=== PATIENT | female | born 1960 | race Caucasian/White ===

== ENCOUNTER 2018-03-08 21:26 | Inpatient (IN) | payer OTHER, SELFPAY ==
[2018-03-08] MEDS ORDERED: Docusate 100 MG CAP PO PRN (22:17)
[2018-03-08] MEDS ORDERED: Labetalol HCl 100 MG/20 ML VIAL SLOW IVP PRN (22:17)
[2018-03-08] MEDS ORDERED: Ondansetron HCl/PF 4 MG/2 ML Vial IVP PRN (22:17)
[2018-03-08 22:37] LABS: Bilirubin Negative (Negative); Blood, Urine Large (Negative); Clarity CLOUDY (Clear); Glucose, Urine (Dipstick) 250 mg/dL (Negative); Leukocyte Negative (Negative); Nitrite Negative (Negative); Protein, Urine (Dipstick) 30 mg/dL (Neg-Trace); Specific Gravity, Urine 1.029 (1.002-1.036); pH, Urine 6.5 (5.0-9.0)
[2018-03-08 22:39] LABS: Bacteria/HPF None Seen HPF (None Seen); WBC/HPF 0-3 HPF (0-3)
[2018-03-08 22:40] LABS: Pathc Cast-AUWi Flag 3.48 (0-2.49)
[2018-03-08 22:49] LABS: Anion Gap 10 mmol/L (10-20); BUN (Urea Nitrogen) 11 mg/dL (9.8-20.1); Calc. Creatinine Clearance 119 mL/min (70-130); Calcium 8.9 mg/dL (7.8-10.44); Carbon Dioxide 25 mmol/L (22-29); Chloride 103 mmol/L (98-107); Estimated GFR-MDRD Greater than 90; Glucose 203 mg/dL (70-105); Sodium 134 mmol/L (136-145)
[2018-03-08 22:49] LABS: Hyaline Casts/LPF 0-3 HYALINE CAST LPF (0-3 Hyaline); RBC/HPF 21-50 HPF (0-3); Yeast-All Forms None Seen HPF (None Seen)
[2018-03-08 22:53] LABS: Platelet Count 29 thou/uL (130-400)
[2018-03-08 23:22] LABS: #Lymphocytes 1.6 thou/uL (1.20-3.40); #Monocytes 0.2 thou/uL (0.11-0.59); #Neutrophils 2.5 thou/uL (1.40-6.50); %Basophils 0.4 % (0.0-1.0); %Eosinophils 0.8 % (0.0-10.0); %Monocytes 5.1 % (0.0-10.0); %Neutrophils 56.8 % (42.0-75.0); Hemoglobin 14.6 g/dL (12.0-16.0); MDiff Complete? YES; Macrocytosis SLIGHT = 6-15 cells (100X) (0-5/hpf); Mean Corpuscular HGB CONC 34.3 g/dL (32.0-36.0); Mean Corpuscular Hemoglobin 36.5 pg (27.0-31.0); Mean Platelet Volume 12.1 fL (7.4-10.4); PLT Morphology Comment Appears Decreased; White Blood Cell (WBC) Count 4.3 thou/uL (4.8-10.8)
[2018-03-09] MEDS: Sodium Chloride 0.9% 1,000 ML IV SCH ×2 (00:25→15:13)
[2018-03-09] MEDS ORDERED: niCARdipine HCl 25 MG in Sodium Chloride 0.9% 250 ML 240 ML IVPB PRN (00:30)
[2018-03-09] MEDS ORDERED: niCARdipine HCl 25 MG in Sodium Chloride 0.9% 250 ML 240 ML IVPB SCH (00:30)
[2018-03-09 01:42] LABS: Platelet Count 40 thou/uL (130-400)
[2018-03-09] MEDS ORDERED: Acetaminophen 1,000 MG in Premix Bag 1 BAG IVPB SCH (03:45)
[2018-03-09] MEDS ORDERED: Morphine 4 MG/ML VIAL SLOW IVP PRN ×2 (04:02)
[2018-03-09] MEDS: Morphine 4 MG/ML VIAL ONE (04:02)
--- NOTE | 2018-03-09 06:06 | HP ---
HISTORY OF PRESENT ILLNESS: Ms. Arrieta is a 57-year-old female who presented as a transfer from [facility]. She last felt normal approximately 12 hours ago in which she developed a severe headache and started to feel nauseous. She is brought to [facility] and a CT scan of the brain showed a large parietooccipital intraparenchymal hemorrhage with extension into the right ventricle. The patient has a history of positive for cocaine use on 03/08/2018. She currently uses tobacco, smokes cigarettes daily. She smoked for the past 30 years, half pack a day. She drinks socially every week. She presented with left upper extremity weakness 2/5 and lower extremity weakness 3/ 5 and also some symptoms of left-sided neglect. Neurosurgery was consulted for the right intraparenchymal hemorrhage with extension into the ventricle. ALLERGIES: No known drug allergies. MEDICATIONS: None. PAST MEDICAL HISTORY: No past medical history. FEMALE SURGICAL HISTORY: Tubal ligation in 1986, right leg knee surgery, and left hand tendon surgery. SOCIAL HISTORY: The patient drinks socially every week. She is positive for cocaine on 03/08/2018. Currently uses tobacco, smokes cigarettes daily for the past 30 years, half pack a day. REVIEW OF SYSTEMS: The patient reports headache. She reports nausea. A 10- point review of systems completed is otherwise negative unless stated in the above HPI. PHYSICAL EXAMINATION: VITAL SIGNS: On presentation; blood pressure is 184/87, pulse 66, respirations 20, temperature 98.1, and O2 sat is 95% on room air. The patient currently on a nitroprusside drip to keep her systolic blood pressure between 140-150 mmHg. CONSTITUTIONAL: The patient is alert and oriented x2, slightly confused. She is hypertensive. No apparent distress. HEENT: Normocephalic, atraumatic. Hearing intact. Moist mucous membranes. Trachea is midline. Eyes: Pupils are equal and reactive to light. Extraocular muscles are intact. Sclerae is white and nonicteric. CARDIOVASCULAR: The patient has regular rate and rhythm, normal S1, S2 heart sounds. No distal cyanosis or clubbing noted in the upper or lower extremity. Pulses are +2 in the upper extremity and lower extremity bilaterally. RESPIRATORY: The patient has bilateral symmetric chest rise, appears to have no shortness of breath. EXTREMITIES: Upper extremity exam include findings of normal inspection of the skin. She has 2/5 weakness in the left upper extremity and 3/5 weakness in the left lower extremity. She also has some left-sided neglect. NEUROLOGIC: There is focal muscle weakness on the left upper and lower extremity. Focal sensory changes, numbness, and tingling to the left upper and lower extremities. Cranial nerves II-XII are grossly intact. Her speech is fluent. She is slightly lethargic, somewhat confused, A&O x2. GCS of 14. PSYCHIATRIC: The patient reports drug abuse, reports recent cocaine abuse. ASSESSMENT: This is a 57-year-old female who presents with a right-sided intraparenchymal occipitoparietal hemorrhage status post cocaine use. This right-sided hemorrhage has extension into the right ventricle. PLAN: We will admit her to ICU tonight. We will do neuro checks q.1 hours. Get a repeat CT scan of the brain at 0400 hours on 03/09/2018. If there is a GCS drop of 2 points or more, please call the Neurosurgery Service. We will also get some baseline labs and we are currently giving the patient platelets as her platelet count was 35,000. Please place the EVD with cranial access kit at the bedside. If there are any further questions, please feel free to contact Neurosurgery. [facility]ITAL[facility]
[2018-03-09 06:14] LABS: Platelet Count 60 thou/uL (130-400)
--- NOTE | 2018-03-09 07:23 | PRG ---
DATE OF SERVICE: 03/09/2018 Ms. Arrieta is a 57-year-old female I saw in her room in the ICU this morning. She presented yesterday with a large right-sided occipital parietal intraparenchymal hemorrhage with extension into the right ventricle. Her platelet count on arrival was 29,000. Two units were given which raised her platelet count to 60,000. Her sodium this morning is 134, glucose is 203. On exam this morning she is alert and oriented x3. She is able to answer my questions, cooperate with my exam. She has been very anxious overnight and she has been at times unwilling to cooperate. She had a positive tox screen with cocaine. Today we will consider adding ASE protocol for alcohol withdrawal and drug withdrawal as she drinks ETOH daily per family this am. She is showing some signs of tremor, possibly from ETOH withdraw. Her vital signs overnight have been well controlled with a Cardene. Her last blood pressure was 142/67. On exam, she has significant weakness and paresthesias in the left upper extremity, the left lower extremity has 3/5 strength. She has some left-sided neglect. On the right upper and lower extremities she has normal strength and no paresthesias. There are no sensory deficits. She is currently a GCS 14, slightly confused. Her cranial nerves are intact. Her speech is fluent and she answers my questions appropriately. There are no new neurologic deficits from my exam last night in the emergency department. We will continue to watch her in the ICU. She will likely need placement in a rehab status post her hospital stay. If there are any further questions, please feel free to contact Neurosurgery. In the meantime, she can work with physical therapy and occupational therapy for her upper and lower left-sided weakness. GAVIN
--- NOTE | 2018-03-09 08:41 | PRG ---
DATE OF SERVICE: 03/09/2018 NEUROSURGERY NOTE I personally interviewed and examined the patient and agree with documentation of alma Toth PA-C 03/08/2018. SUBJECTIVE: Briefly, Ms. Debra Arrieta is a 57-year-old woman transferred from [facility] where she was taken for headache and nausea. Reports that accompanied her indicated cocain e use earlier in the day, yesterday. CT examination of her brain at the outside facility showed a la rge parietal occipital intracerebral hemorrhage within the white matter extending towards the cortica l surface. Testing revealed a thrombocytopenia that was significant. She was transferred here for [facility]. On arrival, Ms. Arrieta had a GCS of 14 and complaint of headache and feeling ill. Overnight, she cont inues to do the exact same. When I see her this morning in the Intensive Care Unit, Ms. Arrieta is fran usable. She opens her eyes to loud voice. She repeats the phrase I feel terrible. She says yes and no to questions. She follows commands on the right side. She neglects her left side. I think the strength is there on the left, but she simply neglects that it exists. She does withdraw to pain on the left. I reviewed CT imaging of the brain and compared it to the images from the outside facility. There is slight increase in the size of the intracerebral hemorrhage, majority of it is stable. Some small a reas of hemorrhage has become more dense and finger-like projections anteriorly and laterally. Platelet count this morning on Ms. Arrieta is 60, her admission platelet count was 29,000. MsSuma W ara is to treat her medically, I think with her low platelet count, surgical intervention will resul t in the scan in the scan looking exactly the same after surgery as it does currently. It will be di fficult to obtain hemostasis and I think we would have to run 1-2 units of platelets during the entir e length of surgery and afterwards and continue that for at least a day or two following. Because taran antonio is awake and opens her eyes in response and speaks, she may be able to make it through this event w ithout surgical intervention. Right now, I am hesitant to put an ICP monitor in either given that taran antonio has an exam, we can follow and she has low platelets. I anticipate the need for mannitol in the fu ture, but I would not use it until it becomes necessary by the senior clinical consultant team over the weekend. I will keep a close eye on Ms. Arrieta. We will avoid hypotonic fluids to decrease the risk of swelling arou nd this hemorrhage. Eventually, she will need inpatient rehabilitation for the severe neglect that s he might be left with.
[2018-03-09] MEDS ORDERED: Thiamine HCl 200 MG/2 ML VIAL SLOW IVP SCH (09:00)
[2018-03-09] MEDS ORDERED: Lorazepam 2 MG/ML VIAL SLOW IVP PRN (09:26)
[2018-03-09] MEDS ORDERED: hydrALAZINE 20 MG/ML VIAL SLOW IVP PRN (09:27)
[2018-03-09] MEDS ORDERED: Milk Of Magnesia 30 ML UDCUP PO PRN (09:28)
--- NOTE | 2018-03-09 09:36 | CT ---
PRELIMINARY REPORT/[facility]/EMERGENTY AFTER-HOURS PROCEDURE CT Head Without Intravenous Contrast CLINICAL HISTORY: 57 years old, female; Condition or disease; Other: Hemorage; Patient HX: Follow up intracerebral hemo rrhagic stroke TECHNIQUE: Axial computed tomography images of the head/brain without intravenous contrast. COMPARISON: Report of CT of the head 03/08/2018. Images not available. FINDINGS: Brain: There is a 6.5 x 5.0 cm hematoma in the right parietal lobe. There is adjacent edema. There is a small subdural hematoma tracking along the right side of the falx measuring up to 2 mm in thicknes s. Midline shift: There is a 4 mm midline shift to the left. Ventricles: There is blood in bilateral lateral and third ventricles. There is obliteration of the rousseau lci particularly in the right hemisphere. The lateral ventricles are enlarged. Bones/joints: Unremarkable. No acute fracture. Soft tissues: Unremarkable. Sinuses: Unremarkable as visualized. No acute sinusitis. Mastoid air cells: Unremarkable as visualized. No mastoid effusion. IMPRESSION: 1. Intracranial hemorrhages, possibly progressed based on the previously reported measurements. Direct comparison with the previous examination is suggested. 2. Midline shift to the left. 3. Cerebral edema possibly with increased intracranial pressure. Thank you for allowing us to participate in the care of your patient. Dictated and Authenticated by: Cricket Gunderson MD 03/09/2018 5:40 AM Central Time ([place] & [place]) FINAL REPORT BRAIN CT WITHOUT IV CONTRAST: EMERGENCY AFTER HOURS EXAM TIME: 4:22 a.m. DATE: 03/09/18. FINDINGS: Again noted is extensive right-sided intraparenchymal hemorrhage as well as intraventricular hemorrha ge and some subdural hemorrhage along the falx. The hemorrhage appears to have progressed somewhat w ithin the ventricular system. There is now approximately 0.6 cm of midline shift to the left. The g ray-white matter junction regions have become somewhat indistinct, suggesting some generalized edema. IMPRESSION: Extensive primarily right-sided intraparenchymal and intraventricular hemorrhage with minimal subdura l hemorrhage along the falx. Some progressive hemorrhage and minimal progressive midline shift from the prior study with some associated cerebral edema. Continue short-term followup. POS: OFF
[2018-03-09] MEDS ORDERED: ALPRAZolam 0.25 MG TAB PO PRN (09:46)
[2018-03-09] MEDS: Acetaminophen 325 MG TAB PO PRN (09:57)
[2018-03-09] MEDS: Ondansetron ODT 4 MG TAB SL PRN ×2 (10:09→20:33)
[2018-03-09 10:18] LABS: Hemoglobin 13.7 g/dL (12.0-16.0); Mean Corpuscular HGB CONC 33.4 g/dL (32.0-36.0); Mean Corpuscular Hemoglobin 36.1 pg (27.0-31.0); Mean Platelet Volume 11.4 fL (7.4-10.4); Platelet Count 50 thou/uL (130-400); Red Blood Cell (RBC) Count 3.79 mill/uL (4.20-5.40); White Blood Cell (WBC) Count 8.5 thou/uL (4.8-10.8)
[2018-03-09 10:27] LABS: Magnesium 1.6 mg/dL (1.6-2.6); Phosphorus 2.9 mg/dL (2.3-4.7)
[2018-03-09 11:16] LABS: Band 8 % (5-11); Lymphocytes 32 % (21-51); MDiff Complete? YES; Macrocytosis SLIGHT = 6-15 cells (100X) (0-5/hpf); Neutrophil 60 % (42-75); PLT Morphology Comment Appears Decreased
--- NOTE | 2018-03-09 12:06 | CON ---
DATE OF CONSULTATION: 03/09/2018 SERVICE: Pulmonary Medicine REASON FOR CONSULTATION: ICU patient. HISTORY OF PRESENT ILLNESS: The patient is a 57-year-old white female. She is an alcoholic. She opened up a beer first thing yesterday morning. She went to pour it, took a couple sips then slumped over. She was brought to the Emergency Department and discovered to have intracranial hemorrhage. She is a little bit agitated. She is cussing. She is able to protect her airway at this time. That being said, she is at high risk for withdrawing from alcohol given the amount that she drinks based on her sister's history. She does not have any specific complaints of headache, fevers, chills, nausea, vomiting or shortness of breath. Overnight, there were no significant events and her neurologic exam as and changed significantly based on ACLS. She does not see a primary care physician and the only time she has ever seen us in the emergency department if there is an acute issue. PAST MEDICAL HISTORY: None. PAST SURGICAL HISTORY: 1. Tubal ligation. 2. Right knee surgery. 3. Left hand surgery. SOCIAL HISTORY: The patient drinks on a daily basis. She has excessive alcohol intake. She has a history of cocaine use. She also smokes on a daily basis, half pack a day, but she has greater than a [id number] history of smoking. She has no exposure to chemicals, dust asbestos or tuberculosis that the sister is aware of. FAMILY HISTORY: Noncontributory. ALLERGIES: No known drug allergies. MEDICATIONS: List of her inpatient medications were reviewed. Multiple updates were made. REVIEW OF SYSTEMS: General, head, ears, eyes, nose, throat, cardiovascular, respiratory, GI, , musculoskeletal, neurologic and skin is negative except as in the HPI. PHYSICAL EXAMINATION: VITAL SIGNS: Afebrile, pulse 77, blood pressure 121/62, respirations 19, saturation 93% on room air. GENERAL: The patient is awake and alert. She is a little agitated. HEENT: Normocephalic, atraumatic. Sclerae are white, conjunctivae pink. Oral mucosa is moist without lesions. LUNGS: Decent air entry. There is a prolonged expiratory phase, which is mild. HEART: Normal rate, regular. MUSCULOSKELETAL: No cyanosis or clubbing. There is no pitting in the bilateral lower extremities. ABDOMEN: Soft, nontender, nondistended. Bowel sounds are positive. GENITOURINARY: Corbin catheter in place. NEUROLOGIC: The patient has a fairly dense deficit on the left side with some spasticity. LABORATORY DATA: WBC 8.5, hemoglobin of 13.7, platelets 50,000. Neutrophil count 60, bands are 8%. INR 1.2. Basic metabolic profile is essentially unremarkable. Magnesium 1.6. Ammonia is 42. Troponin is negative x1. Liver function studies are positive for an AST, ALT and alkaline phosphatase that are marginally elevated. Total bilirubin 1.7. Urinalysis is positive for glycosuria and proteinuria. Outside of this, essentially unremarkable. Cocaine was positive. IMAGING: CT of the brain demonstrates a large intraparenchymal hematoma with midline shift by 4 mm. There is also a small area of subdural involvement. ASSESSMENT: 1. Intraparenchymal hematoma with possible subdural component, not currently involving the ventricular system. 2. Alcohol abuse. 3. Cocaine abuse. DISCUSSION AND PLAN: We will add Precedex, so that we can avoid benzodiazepines. We will see if this keeps her more calm and collected. In the meantime, I will try to maintain blood pressures less than 140. We will give her B12, and folate as well as a multivitamin bag. Pulmonary Critical Care will continue to follow along, but she will certainly need to remain in the ICU for 24-48 hours as she is at extraordinarily high risk of decompensation. P.r.n. DuoNeb will be provided based on prolonged expiratory phase time with auscultation. She likely has some underlying COPD present. 70 minutes have been devoted to this patient in various activities. I personally reviewed all imaging studies and laboratory data noted within this document. For fifty percent of this time, I was interacting with the patient at the bedside or coordinating care with the care team. For the remainder of the time I was immediately available to the patient in the hospital unit. GAVIN
[2018-03-09] MEDS ORDERED: Cyanocobalamin 1000 MCG/ML VIAL IM SCH (12:15)
[2018-03-09] MEDS ORDERED: Multivitamins, Adult 10 ML, Folic Acid 1 MG, Thiamine HCl 100 MG in Dextrose 5 %-0.45 %... IV SCH (12:30)
--- NOTE | 2018-03-09 14:16 | CON ---
DATE OF CONSULTATION: 03/09/2018 REASON FOR CONSULTATION: Thrombocytopenia. HISTORY OF PRESENT ILLNESS: Ms. Arrieta is a 57-year-old female who presented to the emergency department yesterday after she developed a severe headache and nausea. The patient had a CT scan of the brain which showed a large intraparenchymal hemorrhage. A CBC showed a platelet count of 36,000 and white count of 4.6. She was admitted to this facility. Neurosurgery has seen her and diagnosed her with acute intracerebral hemorrhage. The patient was hypertensive on arrival and placed on a Cardene drip that has been discontinued and she is now on Precedex for mild sedation and alcohol withdrawals. The history was obtained from the chart as patient is mildly sedated. The patient has apparently a history of daily alcohol use and in fact opened a beer prior to arrival in the emergency room, she was also cocaine positive. Her LFTs are mildly elevated. Her neuro status has been stable overnight. Her white count has returned to normal value of 8.5. Her platelets have remained around 50,000 after transfusion of 2 units of platelets. PAST MEDICAL HISTORY: Multi-substance abuse. PAST SURGICAL HISTORY: 1. Tubal ligation. 2. Orthopedic surgeries. ALLERGIES: No known drug allergies. HOME MEDICATIONS: None. FAMILY HISTORY: Unknown. SOCIAL HISTORY: According to the medical record, the patient drinks on a daily basis and has excessive intake. She has cocaine use and smokes cigarettes daily greater than [id number] history of smoking. REVIEW OF SYSTEMS: Unable to obtain secondary to mild sedation. PHYSICAL EXAMINATION: VITAL SIGNS: Temperature is 98.6, pulse is 94, respiratory rate is 19, blood pressure is 121/62. She is 93% on room air. GENERAL: Well-developed, well-nourished female, in no acute distress. HEENT: Normocephalic, atraumatic. Pupils are equal and reactive to light. NECK: Supple. CARDIOVASCULAR: Regular rate and rhythm. LUNGS: Clear. ABDOMEN: Soft, nontender, bowel sounds are positive. EXTREMITIES: There is no clubbing, cyanosis or edema. SKIN: No rash. HEMATOLOGIC: There is no petechia or purpura. NEUROLOGIC: Unable to assess secondary to mild sedation. PERTINENT LABORATORY AND X-RAYS: Current WBCs are 8.5, hemoglobin 13.7, hematocrit 40.9, platelet count is 50,000. She has 60% neutrophils, 8% bands, 32% lymphocytes. PT is 15.2, INR is 1.2, PTT is 32. Sodium is 134, potassium 4.0, chloride 103, CO2 is 25, BUN is 11, creatinine 0.61, calcium is 8.9, phosphorus 2.9, magnesium 1.6. Ammonia is 42, total bilirubin is 1.7, AST is 114, ALT is 118, alkaline phosphatase is 249. Troponin is negative. Serum total protein is 7.9, albumin 3.1, globulin 4.8. Urine is negative for bacteria , cocaine found on urine drug screen. Brain CT showed intracranial hemorrhages with a midline shift to the left. ASSESSMENT AND PLAN: 1. Intracranial hemorrhage. 2. Thrombocytopenia. 3. Mild leukopenia. 4. Alcoholism and substance abuse. 5. Elevated liver function tests. DISCUSSION: The patient's platelets are likely from chronic alcohol use and liver dysfunction. She may have cirrhosis with portal hypertension. We will order an abdominal ultrasound to look at her liver and spleen. She had leukopenia on arrival. We will check a hepatitis panel and HIV. Monitor the platelets daily and transfuse p.r.n. Keep platelets greater than 50,000. MTDD
[2018-03-09 14:42] LABS: HIV (1/2) Antibody/Antigen Non-Reactive (NonReactive); HIV 1/2 INDEX 0.06 S/CO (<1.00)
[2018-03-09 14:45] LABS: HBCM Index 0.08 S/CO (0-0.79); HBSAg Index 0.28 S/CO (0-0.99); Hep A IgM AB Non-Reactive (NonReactive); Hep B Surf Ag Non-Reactive S/CO (NonReactive); Hepatitis B Core IGM Abs Non-Reactive (NonReactive)
[2018-03-09 15:40] LABS: Hep C IgG Ab Reflex HepC Qnt (NonReactive)
[2018-03-09 15:42] LABS: Hep C Index 14.76 S/CO (0-0.79)
--- NOTE | 2018-03-09 15:47 | ULT ---
ULTRASOUND ABDOMEN COMPLETE: 03/09/18 HISTORY: 57-year-old female with history of ethanol abuse. Rule out hepatosplenomegaly. The patient has altered mental status, and is unable to communicate currently. It is unknown whether the patient has had a cholecystectomy or not. FINDINGS: Liver: Enlarged. Craniocaudal dimension of the right lobe is 20 cm. Parenchymal echogenicity is francis l. There is an approximately 12 x 12 x 7 mm coarse calcification in the left lobe of the liver. Gallbladder: Not visualized. Common duct: Dilated to 12 mm. Spleen: Not visualized. Pancreas: Tail and portions of the head obscured by shadowing from bowel gas. Visualized portions of body appear unremarkable. Kidneys: No hydronephrosis bilaterally. Abdominal aorta: No aneurysm of proximal abdominal aorta. Mid and distal portions are completely obsc ured by shadowing from bowel gas. Inferior vena cava: Intrahepatic segment unremarkable. Free fluid: None visualized. IMPRESSION: 1. Hepatomegaly. 2. gallbladder not visualized. 3. No splenomegaly. 4. Dilated common duct, 12 mm. If there has been a cholecystectomy, this could be due to reservo ir effect. If there has not been a cholecystectomy, this would be suspicious for common bile duct obs truction. 5. Incidental finding of a coarse calcification in the left lobe of the liver. BRYANT Blue POS: ASA
[2018-03-09] MEDS: Famotidine 20 MG TAB PO SCH (20:32)
--- NOTE | 2018-03-09 20:56 | PDOC.PN ---
- Subjective Encounter Start Date: 03/09/18 Encounter Start Time: 11:20 Patient seen and examined. On Precedex. Somnolent. - Objective MAR Reviewed: Yes Vital Signs & Weight: Vital Signs (12 hours) Temp Pulse Ox 03/09/18 16:00 98.9 F 03/09/18 13:11 94 L 03/09/18 12:00 98.7 F 100 Weight Admit Weight 138 lb Weight 138 lb 3.677 oz Most Recent Monitor Data Heart Rate from ECG 50 NIBP 124/58 NIBP BP-Mean 75 Respiration from ECG 15 SpO2 98 I&O: 03/08/18 03/09/18 03/10/18 06:59 06:59 06:59 Intake Total 938.6 1251 Output Total 795 1200 Balance 143.6 51 Result Diagrams: 03/10/18 03:24 03/10/18 03:24 Radiology Reviewed by me: Yes (CT brain - ICH) EKG Reviewed by me: Yes (Tele SR) Phys Exam - Physical Examination Constitutional: NAD (Somnolent) HEENT: sclera anicteric Neck: no nodes, no JVD Respiratory: no wheezing, no rales, no rhonchi, clear to auscultation bilateral Scat rhonchi Cardiovascular: RRR, no rub no heaves/pulsations Gastrointestinal: soft, non-tender, no distention, positive bowel sounds Musculoskeletal: no edema, pulses present Neuro/Psych - Cannot reliably assess due to current cogniton Dx/Plan - Plan DVT proph w/SCDs IMPRESSION: 1. Toxic Metabolic Encephalopathy - multifactorial. 2. Cocaine/Cannabis abuse 3. Chronic alcoholism 4. Thrombocytopenia - prob due to chronic alcohol use 5. ?Chronic Hep C 6. ICH - NSG following PLAN: * Peripheral smear * Check folic acid/Vit B12/Ammonia * AM labs * Thiamine/folic acid/MVM * Cardene drip PRN * PRN anti HTN * Hep C RNA * Will follow. Thank you for this consultation Review of Systems - Review of Systems Other: Cannot be reliably obtained due to current cognition - Medications/Allergies Allergies/Adverse Reactions: Allergies Allergy/AdvReac Type Severity Reaction Status Date / Time No Known Drug Allergies Allergy Verified 03/09/18 17:54 Medications: Current Medications Acetaminophen (Tylenol) 650 mg SC Q6H PRN PRN Reason: Headache/Fever or Pain Acetaminophen (Tylenol) 650 mg PO Q6H PRN PRN Reason: Headache/Fever or Pain Last Admin: 03/09/18 09:57 Dose: 650 mg Albuterol/Ipratropium (Duoneb) 3 ml NEB [id number] PRN PRN Reason: SOB &/or Wheezing Alprazolam (Xanax) 0.25 mg PO TIDPRN PRN PRN Reason: Anxiety Last Admin: 03/09/18 09:57 Dose: 0.25 mg Clonidine (Catapres) 0.1 mg PO Q4H PRN PRN Reason: Systolic BP > 160 Cyanocobalamin (Vitamin B-12) 1,000 mcg PO DAILY [facility] Docusate Sodium (Colace) 100 mg PO BIDPRN PRN PRN Reason: Constipation Famotidine (Pepcid) 20 mg PO BID [facility] Last Admin: 03/09/18 20:32 Dose: 20 mg Folic Acid (Folvite) 1 mg PO DAILY [facility] Hydralazine HCl (Apresoline) 20 mg SLOW IVP Q15MIN PRN PRN Reason: Sbp Greater Than 140 Sodium Chloride (Normal Saline 0.9%) 1,000 mls @ 80 mls/hr IV .[id number] [facility] Last Admin: 03/09/18 15:13 Dose: Not Given Nicardipine HCl 25 mg/ Sodium (Chloride) 250 mls @ 0 mls/hr IVPB INF PRN; Protocol; Titrate PRN Reason: TO KEEP SBP < 150 mmHg Levetiracetam 500 mg/ Device 100 mls @ 200 mls/hr IVPB BID [facility] Last Admin: 03/09/18 20:32 Dose: 100 mls Dexmedetomidine HCl 200 mcg/ (Sodium Chloride) 50 mls @ 0 mls/hr IVPB INF [facility]; Titrate PRN Reason: Protocol Last Admin: 03/09/18 17:56 Dose: 50 mls Multivitamins 10 ml/ Folic Acid 1 mg/ Thiamine HCl 100 mg / Dextrose/Sodium Chloride 1,011.2 mls @ 100 mls/hr IV Q24HR [facility] Stop: 03/09/18 22:37 Last Admin: 03/09/18 15:13 Dose: 1,011.2 mls Iron/Minerals/Multivitamins (Theragran M) 1 tab PO DAILY [facility] Labetalol HCl (Normodyne) 20 mg SLOW IVP Q15MIN PRN PRN Reason: Sbp Greater Than 140 Magnesium Hydroxide (Milk Of Magnesium) 30 ml PO DAILYPRN PRN PRN Reason: Constipation Morphine Sulfate (Morphine) 2 mg SLOW IVP Q2H PRN PRN Reason: Mild-Moderate Pain (1-5) Ondansetron HCl (Zofran) 4 mg IVP Q6H PRN PRN Reason: Nausea/Vomiting Ondansetron HCl (Zofran Odt) 4 mg SL Q6H PRN PRN Reason: Nausea/Vomiting Last Admin: 03/09/18 20:33 Dose: 4 mg Sodium Chloride (Flush - Normal Saline) 10 ml IVF PRN PRN PRN Reason: Saline Flush Thiamine HCl (Thiamine Hcl) 100 mg SLOW IVP 0900 SUMA Last Admin: 03/09/18 11:02 Dose: 100 mg
[2018-03-10] MEDS: Sodium Chloride 0.9% 1,000 ML IV SCH ×3 (01:15→20:02)
[2018-03-10 04:27] LABS: #Lymphocytes 1.9 thou/uL (1.20-3.40); #Monocytes 0.5 thou/uL (0.11-0.59); #Neutrophils 6.2 thou/uL (1.40-6.50); %Basophils 0.1 % (0.0-1.0); %Eosinophils 0.2 % (0.0-10.0); %Lymphocytes 22.4 % (21.0-51.0); %Neutrophils 71.3 % (42.0-75.0); Hemoglobin 12.6 g/dL (12.0-16.0); MDiff Complete? YES; Macrocytosis SLIGHT = 6-15 cells (100X) (0-5/hpf); Mean Corpuscular HGB CONC 33.5 g/dL (32.0-36.0); Mean Corpuscular Hemoglobin 36.2 pg (27.0-31.0); Mean Platelet Volume 11.8 fL (7.4-10.4); PLT Morphology Comment Appears Decreased; Platelet Count 39 thou/uL (130-400); RBC Distribution Width 12.8 % (11.5-14.5); Red Blood Cell (RBC) Count 3.49 mill/uL (4.20-5.40); White Blood Cell (WBC) Count 8.7 thou/uL (4.8-10.8)
[2018-03-10 05:43] LABS: ALT (SGPT) 77 U/L (8-55); AST (SGOT) 62 U/L (5-34); Alkaline Phosphatase 166 U/L (40-150); Anion Gap 10 mmol/L (10-20); BUN (Urea Nitrogen) 20 mg/dL (9.8-20.1); Bilirubin, Total 1.5 mg/dL (0.2-1.2); Calc. Creatinine Clearance 0 mL/min (70-130); Calcium 8.7 mg/dL (7.8-10.44); Carbon Dioxide 20 mmol/L (22-29); Chloride 107 mmol/L (98-107); Estimated GFR-MDRD Greater than 90; Globulin 4.3 g/dL (2.4-3.5); Glucose 277 mg/dL (70-105); Magnesium 1.8 mg/dL (1.6-2.6); Phosphorus 3.6 mg/dL (2.3-4.7); Potassium 3.7 mmol/L (3.5-5.1); Protein, Total 7.3 g/dL (6.0-8.3); Sodium 133 mmol/L (136-145)
[2018-03-10] MEDS: Multivitamin W/ Minerals 1 TAB PO SCH ×2 (08:40→09:00)
[2018-03-10] MEDS: Acetaminophen 325 MG TAB PO PRN (08:40)
[2018-03-10] MEDS: Cyanocobalamin (Vitamin B-12) 1,000 MCG TAB PO SCH ×2 (08:40→09:00)
[2018-03-10] MEDS: Famotidine 20 MG TAB PO SCH ×3 (08:40→23:51)
[2018-03-10] MEDS: Folic Acid 1 MG TAB PO SCH ×2 (08:41→09:00)
--- NOTE | 2018-03-10 11:20 | PRG ---
DATE OF SERVICE: 03/10/2018 SERVICE: Pulmonary Medicine. INTERVAL HISTORY: The patient is doing fine from a respiratory standpoint. Mentation avila, things h ave not changed too much. She has a little bit combative and aggravated. She was on Precedex 0.5. That being said, she is having some bradycardia issues, we are going to back off with that medication . Otherwise, there has been no interval change to her condition. PHYSICAL EXAMINATION: VITAL SIGNS: Afebrile, pulse 42, blood pressure 126/55, respirations 19, and saturation 95% on room air. GENERAL: The patient is awake, alert, in no apparent distress. LUNGS: Decent air entry. There is no prolonged expiratory phase. Rhonchi are present, but clear wi th cough. HEART: Normal rate, regular. ABDOMEN: Soft, nontender, nondistended. Bowel sounds are positive. MUSCULOSKELETAL: No cyanosis or clubbing. There is no pitting in the bilateral lower extremities. LABORATORY DATA: WBC 8.7, hemoglobin 12.6, platelets 39,000. Basic metabolic profile is essentially unremarkable. Her AST and ALT are marginally elevated. Alkaline phosphatase 166. Ammonia 42. Uri nalysis is unremarkable. Hepatitis C is positive. HIV is nonreactive. Acute Hepatitis B profile is negative. IMAGING: Abdominal ultrasound demonstrates hepatomegaly. Gallbladder was not visualized. The commo n bile duct was dilated, which was likely a reservoir effect. ASSESSMENT: 1. Intraparenchymal hemorrhage. 2. Alcohol abuse. 3. Thrombocytopenia. 4. Cocaine abuse. PLAN: We will wean away the Precedex ever so slightly. She will need to remain in the ICU for at le ast an additional 24 hours to make certain her neurologic status does not change significantly. We a re going to evaluate her swallow today and we will see if we can convert her over to oral blood press ure medications. Pulmonary Critical Care will continue to follow while she remains in this location.
--- NOTE | 2018-03-10 11:43 | PDOC.PN ---
- Subjective Encounter Start Date: 03/10/18 Encounter Start Time: 09:30 -: old records requested/rev Patient seen and examined. No overnight events pt is sleepy - Objective MAR Reviewed: Yes Vital Signs & Weight: Vital Signs (12 hours) Temp BP Pulse Ox 03/10/18 07:00 98.4 F 03/10/18 04:00 98.5 F 129/47 L 97 03/10/18 00:14 100 03/10/18 00:00 98.5 F 127/58 L Weight Admit Weight 138 lb Weight 2.226 oz Most Recent Monitor Data Heart Rate from ECG 44 NIBP 137/65 NIBP BP-Mean 96 Respiration from ECG 19 SpO2 97 I&O: 03/09/18 03/10/18 03/11/18 06:59 06:59 06:59 Intake Total 938.6 2667 30 Output Total 795 1855 80 Balance 143.6 812 -50 Result Diagrams: 03/10/18 03:24 03/10/18 03:24 Radiology Reviewed by me: Yes (CT brain) EKG Reviewed by me: Yes (sinus bradycardia) Phys Exam - Physical Examination Constitutional: NAD HEENT: PERRLA, sclera anicteric Neck: no JVD, supple Respiratory: no wheezing, no rales, no rhonchi Cardiovascular: RRR, no significant murmur, no rub Gastrointestinal: soft, no distention, positive bowel sounds Musculoskeletal: no edema, pulses present unable to assess today as pt is not responsive Lymphatic: no nodes Skin: no rash, normal turgor Dx/Plan (1) Cerebral edema Code(s): G93.6 - CEREBRAL EDEMA Status: Acute (2) Intracranial hemorrhage Code(s): I62.9 - NONTRAUMATIC INTRACRANIAL HEMORRHAGE, UNSPECIFIED Status: Acute (3) Midline shift of brain due to hematoma Code(s): G93.9 - DISORDER OF BRAIN, UNSPECIFIED Status: Acute (4) Abnormal LFTs Code(s): R94.5 - ABNORMAL RESULTS OF LIVER FUNCTION STUDIES Status: Chronic (5) Alcohol abuse Code(s): F10.10 - ALCOHOL ABUSE, UNCOMPLICATED Status: Chronic (6) Chronic hepatitis C Code(s): B18.2 - CHRONIC VIRAL HEPATITIS C Status: Chronic (7) Cocaine abuse Code(s): F14.10 - COCAINE ABUSE, UNCOMPLICATED Status: Chronic (8) Macrocytosis Code(s): D75.89 - OTHER SPECIFIED DISEASES OF BLOOD AND BLOOD-FORMING ORGANS Status: Chronic (9) Thrombocytopenia Code(s): D69.6 - THROMBOCYTOPENIA, UNSPECIFIED Status: Chronic - Plan cont current plan of care, plan discussed w/ family * medication reviewed as below * symptomatic treatment * discussed with family bedside * close monitoring in CCU * neurosurgeon, pulmonary on case * continue IVF. * currently on presedex * continue keppra Review of Systems - Review of Systems Other: unable to review due to encephalopathy - Medications/Allergies Allergies/Adverse Reactions: Allergies Allergy/AdvReac Type Severity Reaction Status Date / Time No Known Drug Allergies Allergy Verified 03/09/18 17:54 Medications: Current Medications Acetaminophen (Tylenol) 650 mg IL Q6H PRN PRN Reason: Headache/Fever or Pain Acetaminophen (Tylenol) 650 mg PO Q6H PRN PRN Reason: Headache/Fever or Pain Last Admin: 03/10/18 08:40 Dose: 650 mg Albuterol/Ipratropium (Duoneb) 3 ml NEB [id number] PRN PRN Reason: SOB &/or Wheezing Alprazolam (Xanax) 0.25 mg PO TIDPRN PRN PRN Reason: Anxiety Last Admin: 03/09/18 09:57 Dose: 0.25 mg Clonidine (Catapres) 0.1 mg PO Q4H PRN PRN Reason: Systolic BP > 160 Cyanocobalamin (Vitamin B-12) 1,000 mcg PO DAILY [facility] Last Admin: 03/10/18 08:40 Dose: 1,000 mcg Docusate Sodium (Colace) 100 mg PO BIDPRN PRN PRN Reason: Constipation Last Admin: 03/10/18 08:40 Dose: 100 mg Famotidine (Pepcid) 20 mg PO BID [facility] Last Admin: 03/10/18 08:40 Dose: 20 mg Folic Acid (Folvite) 1 mg PO DAILY [facility] Last Admin: 03/10/18 08:41 Dose: 1 mg Hydralazine HCl (Apresoline) 20 mg SLOW IVP Q15MIN PRN PRN Reason: Sbp Greater Than 140 Sodium Chloride (Normal Saline 0.9%) 1,000 mls @ 80 mls/hr IV .[id number] [facility] Last Admin: 03/10/18 01:15 Dose: 1,000 mls Nicardipine HCl 25 mg/ Sodium (Chloride) 250 mls @ 0 mls/hr IVPB INF PRN; Protocol; Titrate PRN Reason: TO KEEP SBP < 150 mmHg Levetiracetam 500 mg/ Device 100 mls @ 200 mls/hr IVPB BID [facility] Last Admin: 03/10/18 08:48 Dose: 100 mls Dexmedetomidine HCl 200 mcg/ (Sodium Chloride) 50 mls @ 0 mls/hr IVPB INF [facility]; Titrate PRN Reason: Protocol Last Admin: 03/10/18 06:25 Dose: 50 mls Iron/Minerals/Multivitamins (Theragran M) 1 tab PO DAILY [facility] Last Admin: 03/10/18 08:40 Dose: 1 tab Labetalol HCl (Normodyne) 20 mg SLOW IVP Q15MIN PRN PRN Reason: Sbp Greater Than 140 Magnesium Hydroxide (Milk Of Magnesium) 30 ml PO DAILYPRN PRN PRN Reason: Constipation Morphine Sulfate (Morphine) 2 mg SLOW IVP Q2H PRN PRN Reason: Mild-Moderate Pain (1-5) Ondansetron HCl (Zofran) 4 mg IVP Q6H PRN PRN Reason: Nausea/Vomiting Ondansetron HCl (Zofran Odt) 4 mg SL Q6H PRN PRN Reason: Nausea/Vomiting Last Admin: 03/09/18 20:33 Dose: 4 mg Sodium Chloride (Flush - Normal Saline) 10 ml IVF PRN PRN PRN Reason: Saline Flush Thiamine HCl (Thiamine) 100 mg PO DAILY [facility] Last Admin: 03/10/18 08:40 Dose: 100 mg
[2018-03-10] MEDS ORDERED: Lorazepam 2 MG/ML VIAL SLOW IVP PRN ×2 (12:02→19:38)
[2018-03-10] MEDS ORDERED: Lorazepam 2 MG/ML VIAL ONE (12:02)
[2018-03-10] MEDS ORDERED: Sodium Chloride 256 MEQ in Sterile Water Injection 936 ML IV SCH (12:15)
[2018-03-10] MEDS ORDERED: Sodium Chloride 256 MEQ in Sterile Water Injection 897.6 ML IV SCH (12:45)
--- NOTE | 2018-03-10 13:32 | PRG ---
DATE OF SERVICE: 03/10/2018 This is a 25-minute subsequent visit note in which 25 minutes were spent in reviewing the imaging rec ord, evaluation, examination of the patient, and formulation of a plan. Greater than 50% of the time was spent in counseling on Debra Arrieta. SUBJECTIVE: Ms. Arrieta is hospital day #2 from a large right-sided frontoparietal hemorrhage related likely to cocaine use and a poor metabolic status due to liver dysfunction and thrombocytopenia both quantitative and qualitative. She has been seen by Danielle Mantilla of Hematology and they recommended t ransfusion as needed. Her platelet count this morning is 39,000; on presentation, she was at 29,000. Obviously at the time of her hemorrhage and as such, we will give her a six pack of platelets. She has findings consistent with macrocytic anemia again due to likely alcohol use. She is densely randy plegic on the left side and prefers to keep her eyes closed. She does state that she is in "[place]" w hen asked her where she is at. She follows commands in the right upper and right lower extremity, bu t I would certainly classify her as drowsy, but does follow commands. We will keep her on fluid rest riction at 2 liters daily and I would change her to 1.5% sodium chloride IV fluids from 0.9% as her s jackie osmolality is 301 and her sodium is 132. This is likely due to her glucose and perhaps choleste rol. Nevertheless, we will check b.i.d., serum osmolality and blood sodium and try in a.m. for sodiu m of 140 or greater to reduce edema risk in the brain. I would like to hold off on mannitol unless t here is neurological decline and certainly like to hold off on any surgical intervention given the yoko valencia's coagulopathy and we have updated the family as well. DIAGNOSIS: Right-sided frontoparietal hemorrhage with thrombocytopenia.
[2018-03-10] MEDS: hydrALAZINE 20 MG/ML VIAL SLOW IVP PRN (17:59)
[2018-03-10] MEDS: Acetaminophen 650 MG Suppository PR PRN (18:18)
[2018-03-10 19:05] LABS: Sodium 134 mmol/L (136-145)
[2018-03-10] MEDS: Morphine 4 MG/ML VIAL ONE (19:21)
[2018-03-10 19:30] LABS: Platelet Count 60 thou/uL (130-400)
[2018-03-10] MEDS: Morphine 4 MG/ML VIAL SLOW IVP SCH ×2 (19:30→23:51)
[2018-03-10] MEDS ORDERED: Mannitol 12.5 GM/50 ML IV SCH (20:15)
--- NOTE | 2018-03-10 22:51 | CT ---
CT BRAIN WITHOUT CONTRAST: 03/10/18 HISTORY: Right intracranial hemorrhage. FINDINGS: Comparison made with exam previously. Intracranial hemorrhage is again seen. There has been interval worsening of midline shift to the left measuring 13 mm on the current study (4 mm on the previous exam). New small amount of subarachnoid h emorrhage is seen in the posterior left cerebral hemisphere. Remainder of the intracranial hemorrhage is otherwise redemonstrated. IMPRESSION: New subarachnoid hemorrhage and worsening of subfalcine herniation since previous exam. Findings are discussed over the telephone with patient's nurse, Isis Apodaca RN at 10:40 p.m. POS: [facility]
[2018-03-10 23:19] LABS: Sodium 135 mmol/L (136-145)
[2018-03-10] MEDS ORDERED: Fentanyl 100 MCG/2 ML VIAL ONE (23:21)
[2018-03-10] MEDS ORDERED: Thrombin 5000 UNITS/5 ML VIAL ONE (23:34)
[2018-03-10] MEDS ORDERED: Lidocaine 0.5%/Epinephrine 1:200,000 50 ml Vial ONE (23:34)
[2018-03-10] MEDS ORDERED: Bacitracin Zinc Ointment 30 gm TUBE ONE (23:38)
[2018-03-11] MEDS ORDERED: Sodium Chloride 0.9% 10 ML ONE (00:56)
[2018-03-11] MEDS ORDERED: Fentanyl 100 MCG/2 ML VIAL ONE (01:14)
[2018-03-11] MEDS: Propofol 1,000 MG/100 ML VIAL IV PRN ×5 (02:21→20:49)
[2018-03-11] MEDS: Labetalol HCl 100 MG/20 ML VIAL SLOW IVP PRN (02:38)
[2018-03-11 03:40] LABS: pH, Arterial 7.43 (7.35-7.45)
[2018-03-11 03:41] LABS: Actual Bicarbonate (HCO3a) 21.2 mEq/L (22-26); Base Excess (BEa) -2.6 mEq/L (0 (+/-) 2.5); Hemoglobin (Hb) 10.5 g/dL (12.0-16.0); O2 Tension (PaO2) 131.1 mmHg (80.0-100.0)
[2018-03-11 03:42] LABS: Calcium, Ionized 1.2 mmol/L (1.12-1.30); Puncture Site ALINE
--- NOTE | 2018-03-11 05:30 | PDOC.PN ---
- Subjective Encounter Start Date: 03/11/18 Encounter Start Time: 10:30 pt had craniotomy last night, current intubated - Objective MAR Reviewed: Yes Vital Signs & Weight: Vital Signs (12 hours) Temp Pulse Resp BP Pulse Ox 03/11/18 04:00 98.7 F 15 03/11/18 03:58 133/54 L 03/11/18 02:53 87 132/62 99 03/11/18 02:38 111 H 190/73 H 03/11/18 02:15 17 03/11/18 02:05 97.7 F 17 03/10/18 23:32 97.3 F L 03/10/18 20:00 98.3 F 88 21 H 03/10/18 19:34 107/40 L 03/10/18 17:59 88 173/77 H Weight Admit Weight 138 lb Weight 141 lb 1.533 oz Most Recent Monitor Data Heart Rate from ECG 73 NIBP 103/41 NIBP BP-Mean 57 Respiration from ECG 17 SpO2 100 I&O: 03/09/18 03/10/18 03/11/18 06:59 06:59 06:59 Intake Total 938.6 2667 2593.0 Output Total 795 1855 1647 Balance 143.6 812 946.0 Result Diagrams: 03/11/18 05:15 03/11/18 05:15 Radiology Reviewed by me: Yes (Ct brain, abdomen xray) EKG Reviewed by me: Yes Phys Exam - Physical Examination Constitutional: NAD intubated EVD+ Neck: no JVD, supple Respiratory: no wheezing, no rales, no rhonchi Cardiovascular: RRR, no significant murmur, no rub Gastrointestinal: soft, no distention, positive bowel sounds Musculoskeletal: no edema, pulses present left side weakness Lymphatic: no nodes Deviation from normal: unable to assess as intubated Skin: no rash, normal turgor Dx/Plan (1) Status post craniotomy Status: Acute (2) Respiratory insufficiency/failure Code(s): R06.89 - OTHER ABNORMALITIES OF BREATHING Status: Acute (3) Cerebral edema Code(s): G93.6 - CEREBRAL EDEMA Status: Acute (4) Intracranial hemorrhage Code(s): I62.9 - NONTRAUMATIC INTRACRANIAL HEMORRHAGE, UNSPECIFIED Status: Acute (5) Midline shift of brain due to hematoma Code(s): G93.9 - DISORDER OF BRAIN, UNSPECIFIED Status: Acute (6) Abnormal LFTs Code(s): R94.5 - ABNORMAL RESULTS OF LIVER FUNCTION STUDIES Status: Chronic (7) Alcohol abuse Code(s): F10.10 - ALCOHOL ABUSE, UNCOMPLICATED Status: Chronic (8) Chronic hepatitis C Code(s): B18.2 - CHRONIC VIRAL HEPATITIS C Status: Chronic (9) Cocaine abuse Code(s): F14.10 - COCAINE ABUSE, UNCOMPLICATED Status: Chronic (10) Macrocytosis Code(s): D75.89 - OTHER SPECIFIED DISEASES OF BLOOD AND BLOOD-FORMING ORGANS Status: Chronic (11) Thrombocytopenia Code(s): D69.6 - THROMBOCYTOPENIA, UNSPECIFIED Status: Chronic - Plan cont current plan of care * continue post op management as per neurosurgeon * monitor sodium * continue current fluid * medication reviewed as below * symptomatic treatment * vent as per pulmonary * prognosis guarded. Review of Systems - Review of Systems Other: unable to assess as pt is intubated - Medications/Allergies Allergies/Adverse Reactions: Allergies Allergy/AdvReac Type Severity Reaction Status Date / Time No Known Drug Allergies Allergy Verified 03/09/18 17:54 Medications: Current Medications Acetaminophen (Tylenol) 650 mg ND Q6H PRN PRN Reason: Headache/Fever or Pain Last Admin: 03/10/18 18:18 Dose: 650 mg Acetaminophen (Tylenol) 650 mg PO Q6H PRN PRN Reason: Headache/Fever or Pain Last Admin: 03/10/18 08:40 Dose: 650 mg Albuterol/Ipratropium (Duoneb) 3 ml NEB [id number] PRN PRN Reason: SOB &/or Wheezing Alprazolam (Xanax) 0.25 mg PO TIDPRN PRN PRN Reason: Anxiety Last Admin: 03/09/18 09:57 Dose: 0.25 mg Clonidine (Catapres) 0.1 mg PO Q4H PRN PRN Reason: Systolic BP > 160 Cyanocobalamin (Vitamin B-12) 1,000 mcg PO DAILY [facility] Last Admin: 03/10/18 09:00 Dose: Not Given Docusate Sodium (Colace) 100 mg PO BIDPRN PRN PRN Reason: Constipation Last Admin: 03/10/18 08:40 Dose: 100 mg Famotidine (Pepcid) 20 mg PO BID [facility] Last Admin: 03/10/18 23:51 Dose: Not Given Folic Acid (Folvite) 1 mg PO DAILY [facility] Last Admin: 03/10/18 09:00 Dose: Not Given Hydralazine HCl (Apresoline) 20 mg SLOW IVP Q15MIN PRN PRN Reason: Sbp Greater Than 140 Last Admin: 03/10/18 17:59 Dose: 20 mg Nicardipine HCl 25 mg/ Sodium (Chloride) 250 mls @ 0 mls/hr IVPB INF PRN; Protocol; Titrate PRN Reason: TO KEEP SBP < 150 mmHg Levetiracetam 500 mg/ Device 100 mls @ 200 mls/hr IVPB BID [facility] Last Admin: 03/10/18 20:46 Dose: 100 mls Dexmedetomidine HCl 200 mcg/ (Sodium Chloride) 50 mls @ 0 mls/hr IVPB INF [facility]; Titrate PRN Reason: Protocol Last Admin: 03/10/18 12:54 Dose: 50 mls Sodium Chloride (Normal Saline 0.9%) 1,000 mls @ 80 mls/hr IV .[id number] [facility] Last Admin: 03/10/18 20:02 Dose: 1,000 mls Cefazolin Sodium/Dextrose (Ancef) 50 mls @ 100 mls/hr IVPB 0600 [facility] Stop: 03/11/18 08:00 Cefazolin Sodium 1 gm/ Syringe (2.5 ml/ Sterile Water) 10 mls @ 120 mls/hr SLOW IVP Q8HR [facility] Iron/Minerals/Multivitamins (Theragran M) 1 tab PO DAILY [facility] Last Admin: 03/10/18 09:00 Dose: Not Given Labetalol HCl (Normodyne) 20 mg SLOW IVP Q15MIN PRN PRN Reason: Sbp Greater Than 140 Last Admin: 03/11/18 02:38 Dose: 20 mg Magnesium Hydroxide (Milk Of Magnesium) 30 ml PO DAILYPRN PRN PRN Reason: Constipation Morphine Sulfate (Morphine) 2 mg SLOW IVP Q2H PRN PRN Reason: Mild-Moderate Pain (1-5) Ondansetron HCl (Zofran) 4 mg IVP Q6H PRN PRN Reason: Nausea/Vomiting Ondansetron HCl (Zofran Odt) 4 mg SL Q6H PRN PRN Reason: Nausea/Vomiting Last Admin: 03/09/18 20:33 Dose: 4 mg Propofol (Diprivan) 0 mg IV INF PRN PRN Reason: Sedation Last Admin: 03/11/18 02:21 Dose: 1,000 mg Sodium Chloride (Flush - Normal Saline) 10 ml IVF PRN PRN PRN Reason: Saline Flush Thiamine HCl (Thiamine) 100 mg PO DAILY [facility] Last Admin: 03/10/18 09:00 Dose: Not Given
[2018-03-11 05:53] LABS: INR-International Normal Ratio 1.2; Prothrombin Time 15.8 SEC (12.0-14.7)
[2018-03-11] MEDS ORDERED: CEFAZOLIN 1 GM in Sodium Chloride 0.9% 100 ML IVPB SCH (06:00)
[2018-03-11 06:02] LABS: #Lymphocytes 1.4 thou/uL (1.20-3.40); #Monocytes 0.3 thou/uL (0.11-0.59); #Neutrophils 4.7 thou/uL (1.40-6.50); %Basophils 0.1 % (0.0-1.0); %Eosinophils 0.2 % (0.0-10.0); %Lymphocytes 21.9 % (21.0-51.0); %Monocytes 4.1 % (0.0-10.0); %Neutrophils 73.8 % (42.0-75.0); Mean Corpuscular HGB CONC 34.1 g/dL (32.0-36.0); Mean Corpuscular Hemoglobin 36.4 pg (27.0-31.0); Platelet Count 109 thou/uL (130-400); RBC Distribution Width 12.8 % (11.5-14.5); Red Blood Cell (RBC) Count 2.75 mill/uL (4.20-5.40); White Blood Cell (WBC) Count 6.3 thou/uL (4.8-10.8)
[2018-03-11 06:10] LABS: ALT (SGPT) 56 U/L (8-55); AST (SGOT) 43 U/L (5-34); Albumin 3.1 g/dL (3.5-5.0); Alkaline Phosphatase 121 U/L (40-150); Anion Gap 8 mmol/L (10-20); BUN (Urea Nitrogen) 23 mg/dL (9.8-20.1); Bilirubin, Total 1.1 mg/dL (0.2-1.2); Calc. Creatinine Clearance 90 mL/min (70-130); Carbon Dioxide 24 mmol/L (22-29); Chloride 110 mmol/L (98-107); Estimated GFR-MDRD 85; Globulin 3.8 g/dL (2.4-3.5); Glucose 284 mg/dL (70-105); Potassium 3.6 mmol/L (3.5-5.1); Protein, Total 6.9 g/dL (6.0-8.3); Sodium 138 mmol/L (136-145)
[2018-03-11] MEDS ORDERED: Sodium Chloride 0.9% 15 ML NEB ONE (09:14)
[2018-03-11] MEDS ORDERED: Sodium Chloride 0.9% 100 ML ONE (09:14)
[2018-03-11] MEDS: Sodium Chloride 0.9% 1,000 ML IV SCH ×2 (09:51→14:05)
--- NOTE | 2018-03-11 10:08 | RAD ---
KUB: DATE: 03/11/18. PROVIDED CLINICAL HISTORY: Abdominal pain. FINDINGS: The abdominal bowel gas pattern is nonspecific. Enteric catheter is noted, the tip of which projects over the left mid abdomen. The supine nature of the study is not sensitive for detection of pneumop eritoneum. No radiographically apparent urinary tract calculi. IMPRESSION: Nonspecific bowel gas pattern. POS: [facility]
[2018-03-11] MEDS: Cyanocobalamin (Vitamin B-12) 1,000 MCG TAB PO SCH (10:35)
[2018-03-11] MEDS: Famotidine 20 MG TAB PO SCH ×2 (10:35→21:28)
[2018-03-11] MEDS: Folic Acid 1 MG TAB PO SCH (10:37)
[2018-03-11] MEDS: Multivitamin W/ Minerals 1 TAB PO SCH (10:37)
--- NOTE | 2018-03-11 12:14 | CT ---
CT BRAIN: DATE: 03/11/18. PROVIDED CLINICAL HISTORY: Followup intracranial hemorrhage. FINDINGS: Comparison is made with the study dated 03/10/18. Interval postoperative changes of right parietal cr aniotomy and evacuation of intraaxial hematoma in the right parietal region. There is marked interva l decrease in the degree of intraaxial blood. Pneumocephalus is noted. Intraventricular hemorrhage is redemonstrated, similar to the prior examination. Interval placement of right parietal ventriculo stomy catheter with decompression of the temporal horn enlargement seen on the prior study. Scattere d foci of subarachnoid hemorrhage involving the left cerebral hemisphere are again seen. Interval es sential resolution of the previously described leftward shift of the midline structures. IMPRESSION: Interval postoperative changes as above. POS: [facility]
[2018-03-11] MEDS ORDERED: Lacri-Lube Opth Oint 3.5 GM TUBE EA EYE PRN (13:28)
[2018-03-11] MEDS ORDERED: Ventilator Sedation Protocol 1 EACH FS SCH (13:30)
[2018-03-11] MEDS ORDERED: Propofol BOLUS 1,000 MG/100 ML VIAL IV PRN (13:38)
[2018-03-11] MEDS ORDERED: Fentanyl BOLUS 250 ML IVPB PRN (13:38)
[2018-03-11] MEDS ORDERED: DISCONTINUE PREVIOUS NARCOTIC PAIN MEDICATIONS AND BENZODIAZEPINES FS SCH (13:38)
[2018-03-11] MEDS ORDERED: fentaNYL Citrate/PF 2,000 MCG in Sodium Chloride 0.9% 60 ML IV SCH (13:38)
[2018-03-11] MEDS ORDERED: Lorazepam 2 MG/ML VIAL SLOW IVP PRN (13:38)
[2018-03-11] MEDS ORDERED: predniSONE 20 MG TAB PO SCH (14:00)
[2018-03-11] MEDS: CEFAZOLIN 1 GM, Syringe 2.5 ML in Sterile Water 7.5 ML SLOW IVP SCH ×2 (14:05→22:06)
[2018-03-11] MEDS ORDERED: Potassium Chloride 40 MEQ in Sodium Chloride 0.9% 250 ML 150 ML IVPB SCH (14:15)
[2018-03-11 16:39] LABS: Sodium 140 mmol/L (136-145)
[2018-03-11] MEDS ORDERED: Dexamethasone 20 MG/5 ML VIAL ONE (16:58)
[2018-03-11] MEDS ORDERED: ePHEDrine/0.9% NaCl/PF SYRINGE 50 mg/10 ml ONE (16:58)
[2018-03-11] MEDS ORDERED: Succinylcholine Chloride 20 MG/ML 10 ml SYRINGE FS ONE (16:58)
[2018-03-11] MEDS ORDERED: PROPOFOL 200 MG/20 ML VIAL ONE (16:58)
[2018-03-11] MEDS ORDERED: Lidocaine 1% PF 5 ML VIAL ONE (16:58)
[2018-03-11] MEDS ORDERED: PHENYLEPHRINE-NS 100 MCG/ML 10 ML SYRINGE ONE (16:58)
[2018-03-12] MEDS: Sodium Chloride 0.9% 1,000 ML IV SCH (02:03)
[2018-03-12 04:40] LABS: #Lymphocytes 2.6 thou/uL (1.20-3.40); #Monocytes 0.6 thou/uL (0.11-0.59); #Neutrophils 3.6 thou/uL (1.40-6.50); %Basophils 0.2 % (0.0-1.0); %Eosinophils 0.1 % (0.0-10.0); %Monocytes 9.3 % (0.0-10.0); %Neutrophils 52.4 % (42.0-75.0); Hemoglobin 10.7 g/dL (12.0-16.0); Mean Corpuscular HGB CONC 34.4 g/dL (32.0-36.0); Mean Corpuscular Hemoglobin 36.7 pg (27.0-31.0); Mean Platelet Volume 9.7 fL (7.4-10.4); Platelet Count 85 thou/uL (130-400); Red Blood Cell (RBC) Count 2.91 mill/uL (4.20-5.40)
[2018-03-12 05:14] LABS: Anion Gap 9 mmol/L (10-20); BUN (Urea Nitrogen) 20 mg/dL (9.8-20.1); Calc. Creatinine Clearance 103 mL/min (70-130); Calcium 8.9 mg/dL (7.8-10.44); Carbon Dioxide 21 mmol/L (22-29); Chloride 113 mmol/L (98-107); Estimated GFR-MDRD Greater than 90; Glucose 187 mg/dL (70-105); Magnesium 2.3 mg/dL (1.6-2.6); Phosphorus 3.2 mg/dL (2.3-4.7); Potassium 3.8 mmol/L (3.5-5.1); Sodium 139 mmol/L (136-145)
[2018-03-12] MEDS: CEFAZOLIN 1 GM, Syringe 2.5 ML in Sterile Water 7.5 ML SLOW IVP SCH ×3 (05:48→21:36)
[2018-03-12] MEDS: Propofol 1,000 MG/100 ML VIAL IV PRN (08:03)
[2018-03-12] MEDS: Folic Acid 1 MG TAB PO SCH (08:12)
[2018-03-12] MEDS: Cyanocobalamin (Vitamin B-12) 1,000 MCG TAB PO SCH (08:19)
[2018-03-12] MEDS: Multivitamin W/ Minerals 1 TAB PO SCH (08:19)
[2018-03-12] MEDS: predniSONE 20 MG TAB PO SCH (08:19)
[2018-03-12] MEDS: Famotidine 20 MG TAB PO SCH ×3 (08:19→21:24)
[2018-03-12] MEDS: hydrALAZINE 20 MG/ML VIAL SLOW IVP PRN ×2 (08:29→19:32)
--- NOTE | 2018-03-12 09:03 | PRG ---
DATE OF SERVICE: 03/12/2018 Ms. Arrieta is postoperative day 2 and hospital day 4 following right parietal craniotomy for hematoma evacuation and placement of external ventricular drain. She remains intubated and sedated; however, when the sedation is weaned she becomes hypertensive and becomes quite agitated. She briskly localiz es in the right upper and right lower extremity and withdraws weakly in the left upper extremity and more briskly in the left lower extremity. She does not open eyes to noxious stimuli. I spoke with Abby Puckett. We will move towards weaning the sedation and extubating the patient. Regarding her ext ernal ventricular drain, the function has been quite tenuous. I flushed it again this morning, both proximally and distally and it is functioning at this point; however, if we can get an adequate exam our plan will be to remove it. Metabolically her labs have demonstrated largely stability. Her plat elet count was 109 yesterday, it is 85 today. She is a chronic liver dysfunction and presented with a platelet count of 60. This drifted down to 39. My threshold to give her more platelets would be i f she drops below 50. Her sodium is 139. Her creatinine is 0.65. Her glucose is 187 with a high ma rk of 284. Her serum osmolality is 305. We will order an ultrasound of lower extremities today as luisana bryson
--- NOTE | 2018-03-12 10:28 | PDOC.PN ---
- Subjective Encounter Start Date: 03/12/18 Encounter Start Time: 09:50 pt is intubated, on ventilator overall remained stable on vent she withdraws on right side with noxious stimuli, but less on left side especially left lower extrimity - Objective MAR Reviewed: Yes Vital Signs & Weight: Vital Signs (12 hours) Temp Pulse Resp BP Pulse Ox 03/12/18 09:00 98.7 F 102 H 21 H 98 03/12/18 08:48 97 03/12/18 08:29 75 186/90 H 03/12/18 06:48 54 L 158/65 H 03/12/18 06:00 20 03/12/18 04:00 99.1 F 30 H 135/71 03/12/18 02:43 51 L 135/71 03/12/18 02:00 21 H 03/12/18 00:00 98.3 F 20 127/62 03/11/18 22:42 54 L 128/57 L Weight Admit Weight 138 lb Weight 146 lb 6.191 oz Most Recent Monitor Data Heart Rate from ECG 73 NIBP 131/56 NIBP BP-Mean 74 Respiration from ECG 33 SpO2 94 I&O: 03/11/18 03/12/18 03/13/18 06:59 06:59 06:59 Intake Total 3518.2 3100 0 Output Total 1708 1196 145 Balance 1810.2 1904 -145 Result Diagrams: 03/12/18 04:00 03/12/18 04:00 EKG Reviewed by me: Yes (nsr) Phys Exam - Physical Examination Constitutional: NAD on vent EVD HEENT: PERRLA, sclera anicteric ET tube in place Neck: no JVD, supple Respiratory: no wheezing, no rales, no rhonchi Cardiovascular: RRR, no significant murmur, no rub Gastrointestinal: soft, no distention, positive bowel sounds Musculoskeletal: no edema, pulses present SCD+ she withdraws on right side with noxious stimuli less movement on left UE and even less on left LE with stimulit Lymphatic: no nodes Skin: no rash, normal turgor Dx/Plan (1) Status post craniotomy Status: Acute (2) Respiratory insufficiency/failure Code(s): R06.89 - OTHER ABNORMALITIES OF BREATHING Status: Acute (3) Cerebral edema Code(s): G93.6 - CEREBRAL EDEMA Status: Acute (4) Intracranial hemorrhage Code(s): I62.9 - NONTRAUMATIC INTRACRANIAL HEMORRHAGE, UNSPECIFIED Status: Acute (5) Midline shift of brain due to hematoma Code(s): G93.9 - DISORDER OF BRAIN, UNSPECIFIED Status: Acute (6) Abnormal LFTs Code(s): R94.5 - ABNORMAL RESULTS OF LIVER FUNCTION STUDIES Status: Chronic (7) Alcohol abuse Code(s): F10.10 - ALCOHOL ABUSE, UNCOMPLICATED Status: Chronic (8) Chronic hepatitis C Code(s): B18.2 - CHRONIC VIRAL HEPATITIS C Status: Chronic (9) Cocaine abuse Code(s): F14.10 - COCAINE ABUSE, UNCOMPLICATED Status: Chronic (10) Macrocytosis Code(s): D75.89 - OTHER SPECIFIED DISEASES OF BLOOD AND BLOOD-FORMING ORGANS Status: Chronic (11) Thrombocytopenia Code(s): D69.6 - THROMBOCYTOPENIA, UNSPECIFIED Status: Chronic - Plan cont current plan of care * continue vent as per pulmonary * supportive care * medication reviewed as below * symptomatic treatment * labs are stable. Review of Systems - Review of Systems Other: unable to review due to intubated status - Medications/Allergies Allergies/Adverse Reactions: Allergies Allergy/AdvReac Type Severity Reaction Status Date / Time No Known Drug Allergies Allergy Verified 03/09/18 17:54 Medications: Current Medications Acetaminophen (Tylenol) 650 mg DE Q6H PRN PRN Reason: Headache/Fever or Pain Last Admin: 03/10/18 18:18 Dose: 650 mg Acetaminophen (Tylenol) 650 mg PO Q6H PRN PRN Reason: Headache/Fever or Pain Last Admin: 03/10/18 08:40 Dose: 650 mg Albuterol/Ipratropium (Duoneb) 3 ml NEB [id number] PRN PRN Reason: SOB &/or Wheezing Clonidine (Catapres) 0.1 mg PO Q4H PRN PRN Reason: Systolic BP > 160 Cyanocobalamin (Vitamin B-12) 1,000 mcg PO DAILY [facility] Last Admin: 03/12/18 08:19 Dose: 1,000 mcg Docusate Sodium (Colace) 100 mg PO BIDPRN PRN PRN Reason: Constipation Last Admin: 03/10/18 08:40 Dose: 100 mg Famotidine (Pepcid) 20 mg PO BID [facility] Last Admin: 03/12/18 08:19 Dose: 20 mg Folic Acid (Folvite) 1 mg PO DAILY [facility] Last Admin: 03/12/18 08:12 Dose: 1 mg Hydralazine HCl (Apresoline) 20 mg SLOW IVP Q15MIN PRN PRN Reason: Sbp Greater Than 140 Last Admin: 03/12/18 08:29 Dose: 20 mg Nicardipine HCl 25 mg/ Sodium (Chloride) 250 mls @ 0 mls/hr IVPB INF PRN; Protocol; Titrate PRN Reason: TO KEEP SBP < 150 mmHg Levetiracetam 500 mg/ Device 100 mls @ 200 mls/hr IVPB BID [facility] Last Admin: 03/12/18 08:21 Dose: 100 mls Dexmedetomidine HCl 200 mcg/ (Sodium Chloride) 50 mls @ 0 mls/hr IVPB INF [facility]; Titrate PRN Reason: Protocol Last Admin: 03/11/18 09:51 Dose: 50 mls Sodium Chloride (Normal Saline 0.9%) 1,000 mls @ 80 mls/hr IV .[id number] [facility] Last Admin: 03/12/18 02:03 Dose: 1,000 mls Cefazolin Sodium 1 gm/ Syringe (2.5 ml/ Sterile Water) 10 mls @ 120 mls/hr SLOW IVP Q8HR [facility] Last Admin: 03/12/18 05:48 Dose: 10 mls Fentanyl Citrate 2,000 mcg/ (Sodium Chloride) 100 mls @ 0 mls/hr IV INF [facility]; Per Protocol PRN Reason: Protocol Stop: 04/10/18 13:38 Fentanyl Citrate (Fentanyl Bolus) 250 mls @ 0 mls/hr IVPB PRN PRN; As Directed PRN Reason: Breakthrough pain/agitation Stop: 04/10/18 13:38 Iron/Minerals/Multivitamins (Theragran M) 1 tab PO DAILY [facility] Last Admin: 03/12/18 08:19 Dose: 1 tab Labetalol HCl (Normodyne) 20 mg SLOW IVP Q15MIN PRN PRN Reason: Sbp Greater Than 140 Last Admin: 03/11/18 02:38 Dose: 20 mg Lorazepam (Ativan) 2 mg SLOW IVP Q1H PRN PRN Reason: Breakthrough agitation Stop: 04/10/18 13:38 Magnesium Hydroxide (Milk Of Magnesium) 30 ml PO DAILYPRN PRN PRN Reason: Constipation Mineral Oil/White Petrolatum (Lacri-Lube Ointment) 0 gm EA EYE PRN PRN PRN Reason: Dry Eyes Morphine Sulfate (Morphine) 2 mg SLOW IVP Q1H PRN PRN Reason: breakthrough pain/agitation Stop: 04/10/18 13:38 Ondansetron HCl (Zofran) 4 mg IVP Q6H PRN PRN Reason: Nausea/Vomiting Ondansetron HCl (Zofran Odt) 4 mg SL Q6H PRN PRN Reason: Nausea/Vomiting Last Admin: 03/09/18 20:33 Dose: 4 mg Prednisone (Prednisone) 40 mg PO [facility] Stop: 03/15/18 08:01 Last Admin: 03/12/18 08:19 Dose: 40 mg Propofol (Diprivan) 1,000 mg IV INF PRN; Protocol PRN Reason: TO ACHIEVE GOAL RASS Stop: 04/10/18 13:38 Last Admin: 03/12/18 08:03 Dose: 1,000 mg Propofol (Diprivan Bolus) 20 mg IV Q5MIN PRN PRN Reason: BREAKTHROUGH AGITATION Stop: 04/10/18 13:38 Sodium Chloride (Flush - Normal Saline) 10 ml IVF PRN PRN PRN Reason: Saline Flush Thiamine HCl (Thiamine) 100 mg PO DAILY [facility] Last Admin: 03/12/18 08:19 Dose: 100 mg
[2018-03-12 11:15] LABS: HCV log10 5.738 (.); Hep C PCR-Quant 547000 IU/mL (.)
--- NOTE | 2018-03-12 12:22 | ULT ---
ULTRASOUND WITH DOPPLER DUPLEX VENOUS LOWER EXTREMITIES BILATERAL: HISTORY: A 57-year-old female with impaired mobility, resulting in increased risk for DVT. TECHNIQUE: Color flow Doppler, spectral waveform analysis of pulsed Doppler, and gonzalez-scale imaging with jerardo jose l and augmentation, were used to evaluate the bilateral common femoral, femoral, popliteal, manager multimedia ior tibial, and superficial femoral, veins; and the proximal portions of the profunda femoral and gre ater saphenous, veins. FINDINGS: There is normal compressibility, demonstration of blood flow by color Doppler and pulsed Doppler, and response to augmentation, in all interrogated veins. There is minimal soft tissue edema. IMPRESSION: 1. No deep vein thrombosis in the bilateral lower extremities. 2. Minimal edema in the soft tissues of the bilateral lower extremities. jnR POS: ASA
[2018-03-12] MEDS: Morphine 4 MG/ML VIAL SLOW IVP PRN ×2 (12:46→14:58)
--- NOTE | 2018-03-12 14:21 | PRG ---
DATE OF SERVICE: 03/12/2018 SERVICE: Pulmonary Medicine INTERVAL HISTORY: The patient is doing much better from a respiratory standpoint. Mentation avila, t hings have improved slightly. She is localizing to discomfort everywhere. Her pupils are much more brisk. She cannot provide any additional elements to the history and is currently on mechanical vent ilation. Otherwise, there has been no interval change to her condition. Nursing reports no overnigh t events. PHYSICAL EXAMINATION: VITAL SIGNS: Afebrile, pulse 73, blood pressure 131/62, respirations 34, saturation 94%, on 27% FiO2 and a PEEP of 5. GENERAL: The patient is intubated and sedated. HEENT: Normocephalic, atraumatic. Sclerae are white, conjunctivae pink. Oral mucosa is moist witho ut lesions. LUNGS: Decent air entry bilaterally. There is a prolonged expiratory phase. No wheezing or rhonchi appreciated. HEART: Normal rate, regular. ABDOMEN: Soft, nontender, nondistended. Bowel sounds are positive. MUSCULOSKELETAL: No cyanosis or clubbing. There is no pitting in the bilateral lower extremities. NEUROLOGIC: Grossly nonfocal. LABORATORY DATA: WBC 7.0, hemoglobin 10.7, platelets 85,000. Chloride 113. Basic metabolic profile , magnesium and phosphorus are all unremarkable. IMAGING: Ultrasound of bilateral lower extremities demonstrates no evidence of DVT. Minimal edema i s present in the soft tissues. ASSESSMENT: 1. Intraparenchymal hemorrhage. 2. Alcohol abuse. 3. Cocaine abuse. 4. Thrombocytopenia. PLAN: We will wean the propofol away. We can leave her on the Precedex. We will put her on a spont aneous breathing trial at 5/5. If she meets criteria, extubation will be considered. She seems to b e back to where she was prior to the procedure. As such, hopefully she will be able to protect her a irway this time around. We will know more after the tube comes out, however. CRITICAL CARE TIME: 30 minutes.
--- NOTE | 2018-03-12 19:01 | RAD ---
KUB: 03/12/2018 HISTORY: Evaluate nasogastric tube. COMPARISON: 03/11/2018 FINDINGS: There is Dobhoff feeding tube in place, with the distal tip overlying the right upper quadrant, in th e expected location of the gastric antrum or proximal duodenum. Supine imaging limits evaluation for bowel obstruction and free air. IMPRESSION: Dobhoff tube, as detailed above, with the distal tip overlying the medial aspect of the right upper q uadrant. POS: ASA
[2018-03-12] MEDS: Lorazepam 2 MG/ML VIAL SLOW IVP PRN ×2 (20:25→22:32)
[2018-03-12] MEDS ORDERED: CEFAZOLIN 1 GM, Syringe 2.5 ML in Sterile Water 7.5 ML SLOW IVP SCH (22:00)
[2018-03-12] MEDS: cloNIDine 0.1 MG TAB PO PRN (22:13)
[2018-03-13] MEDS: Sodium Chloride 0.9% 1,000 ML IV SCH ×3 (00:40→23:07)
[2018-03-13] MEDS: Lorazepam 2 MG/ML VIAL SLOW IVP PRN ×5 (04:13→14:47)
--- NOTE | 2018-03-13 04:17 | PRG ---
DATE OF SERVICE: 03/11/2018 SERVICE: Pulmonary Medicine. INTERVAL HISTORY: Patient is doing really well from respiratory standpoint. Mentation avila, however, things were a little bit worse. She ended up blowing the pupil last night. She went down for an emergent ventriculostomy drain. She is recovering on mechanical ventilation in the ICU. I was asked to leave her on mechanical ventilation in the next 24 hours. As such, I will happily oblige. I will work on extubating her tomorrow morning. It is a sedation holiday this morning, actually her mentation was close to what was previously. She has a sluggish pupil on the left compared to the right, which is better than it was last night. PHYSICAL EXAMINATION: VITAL SIGNS: Afebrile, pulse 56, blood pressure 117/55, respirations 15, saturation 100% on 27% FiO2. GENERAL: Patient is awake, alert, in no apparent distress. LUNGS: Decent air entry bilaterally. There is a prolonged expiratory phase, but no wheezing rhonchi, or crackles. HEART: Normal rate. Regular. ABDOMEN: Soft, nontender, nondistended. Bowel sounds are positive. MUSCULOSKELETAL: No cyanosis or clubbing. There is no pitting in the bilateral lower extremities. NEUROLOGIC: Grossly nonfocal. LABORATORY DATA: WBC 6.3, hemoglobin 10.0, platelets 109,000. Basic metabolic profile is otherwise unremarkable. Potassium 3.6. Glucose 284. AST and ALT are marginally elevated, but downtrending. IMAGING: CT of the brain demonstrates interval development of ventricular blood , status post ventriculostomy drain. ASSESSMENT: 1. Intraparenchymal hemorrhage with intraventricular and subarachnoid extension. 2. Alcohol abuse. 3. Thrombocytopenia. 4. Cocaine abuse. PLAN: We will leave the patient mechanical ventilation for the next 24 hours. I will heavily modified some of her settings in order to improve comfort. We will start her on a brief course of prednisone given the prolonged expiratory phase on mechanical ventilation. Potassium will be replaced today. Pulmonary and Critical Care will continue to follow closely. Critical care time; 30 minutes. MTDD
[2018-03-13] MEDS: CEFAZOLIN 1 GM, Syringe 2.5 ML in Sterile Water 7.5 ML SLOW IVP SCH ×3 (05:05→21:05)
[2018-03-13 05:15] LABS: #Lymphocytes 2.7 thou/uL (1.20-3.40); #Monocytes 0.9 thou/uL (0.11-0.59); #Neutrophils 4.7 thou/uL (1.40-6.50); %Basophils 0.5 % (0.0-1.0); %Eosinophils 0.5 % (0.0-10.0); %Lymphocytes 32.3 % (21.0-51.0); %Monocytes 10.2 % (0.0-10.0); %Neutrophils 56.6 % (42.0-75.0); Hemoglobin 10.4 g/dL (12.0-16.0); Mean Corpuscular HGB CONC 34.5 g/dL (32.0-36.0); Mean Platelet Volume 10.6 fL (7.4-10.4); Platelet Count 75 thou/uL (130-400); RBC Distribution Width 12.8 % (11.5-14.5); Red Blood Cell (RBC) Count 2.81 mill/uL (4.20-5.40); White Blood Cell (WBC) Count 8.3 thou/uL (4.8-10.8)
[2018-03-13 06:16] LABS: Anion Gap 10 mmol/L (10-20); BUN (Urea Nitrogen) 27 mg/dL (9.8-20.1); Calc. Creatinine Clearance 106 mL/min (70-130); Calcium 8.5 mg/dL (7.8-10.44); Carbon Dioxide 20 mmol/L (22-29); Chloride 117 mmol/L (98-107); Estimated GFR-MDRD Greater than 90; Glucose 255 mg/dL (70-105); Phosphorus 2.5 mg/dL (2.3-4.7); Potassium 3.5 mmol/L (3.5-5.1); Sodium 143 mmol/L (136-145)
[2018-03-13] MEDS: predniSONE 20 MG TAB PO SCH (07:17)
--- NOTE | 2018-03-13 08:40 | OP ---
Yesterday evening, Ms. Arrieta became more agitated, this required medications essentially to provide some sort of control of her agitation. The patient as such became more drowsy and upon allowing the medication to clear, she was no longer following commands in the right side and had slurring of her speech. I repeated the head CT which demonstrated enlargement of her parenchymal hemorrhage with more intraventricular extension and hydrocephalus. I gave her 6 packs of platelets and arranged for 2 units of fresh frozen plasma and opted to take the patient to surgery for craniotomy for evacuation of the parenchymal hemorrhage and whatever we can get from the ventricular hematoma retrieval and placement of an external ventricular drain. I opted against placement of just an external ventricular drain. As I was concerned that this will clot off further, the patient had already received mannitol and I have changed it to 1.5 % sodium chloride IV fluids and her serum osmolality was already near 310. As such, I felt like we do not have really much of a nonsurgical option. As such, please find below is the operative note. PROCEDURES PERFORMED: 1. Right parietal craniotomy for hematoma evacuation from parietal lobe and in the ventricle. 2. Placement of external ventricular drain. SURGEON: Parveen Maya MD CLEAN UP SUPERVISOR: Nii Plummer PA-C WOUND TYPE: Type 1 wound. OR: 11. Modifier 57 should be added to the surgery as my decision to operative was made on the day I saw the patient and this was considered to be an emergency case. DESCRIPTION OF PROCEDURE: After attempt reaching the family, we were able to get in touch with the patient's adopted sister and explained the nature of the patient's declining the surgery again this was an emergency case however and as such, we proceeded and the patient's family consented to surgery. Following proper patient pause and identification, the patient was positioned supine with a bump placed under the right hemithorax and the head turned to the left to expose the right parietal region. Her head was secured in the Christianson karmen and proper patient pause and identification was carried out. Hair was clipped in the right parietal region and a curved incision drawn out over the parietal boss. This region was sterilely cleansed, prepared, and draped. Proper patient pause identification was carried out. The wound was then opened with a combination of sharp, monopolar, and blunt dissection, and circular craniotomy was performed. The dura was opened. The brain was under significant tension. I then identified hematoma and removed this and followed the hematoma to the ventricle, identified the thalamus. Copious irrigation occurred as did meticulous hemostasis which turned as expected to be challenging given the patient's coagulopathy; however, I was pleased with the relaxation of the brain , an external ventricular drain was placed through bur hole and copious irrigation occurred. This was secured to the scalp. The dura was then flapped back and the craniotomy was placed with titanium plates and screws. The wound was then closed in anatomic layers. The patient was then taken to the ICU. GAVIN
--- NOTE | 2018-03-13 08:45 | PRG ---
Ms. Arrieta is now postoperative from a right-sided parietal craniotomy for intraparenchymal hemorrhage and ventricular hematoma removal. Her head CT demonstrates improvement in the mass effect following evacuation of the hematoma and less midline shift. The ventricles are somewhat decompressed compared to preoperatively. Her EVD appears to be in the superior portion of the body of the lateral ventricle. Obviously given the nature of the ventricular clot, the ventricular drain has been tenuous in its functionality; however, the patient neurologically is improved and when her sedation is weaned , she briskly moves her right upper and right lower extremity and briskly withdraws her left lower and very weakly withdraws her left upper extremity. Her drain output has been approximately 50 mL and as expected bloody, I flushed both proximally and distally and again at which in the short-term and then since we have placed it on the floor. I would not advocate the placement of the external ventricular drain. Her platelet count is satisfactory as is her INR as they are both over 100 and at 1.2 today and we will continue to monitor this. I will follow with the idea to put the patient on steroids to assist with platelet function and concern given the patient's elevated glucose and her diabetes and the plan is likely for continued intubation today although I would be fine with extubation as Dr. Galan feels the patient has met criteria. MINGD
[2018-03-13] MEDS: Cyanocobalamin (Vitamin B-12) 1,000 MCG TAB PO SCH (09:00)
[2018-03-13] MEDS: Famotidine 20 MG TAB PO SCH ×2 (09:00→21:05)
[2018-03-13] MEDS: Folic Acid 1 MG TAB PO SCH (09:00)
[2018-03-13] MEDS: Multivitamin W/ Minerals 1 TAB PO SCH (09:00)
[2018-03-13] MEDS ORDERED: Carvedilol 6.25 MG TAB PO SCH (10:15)
--- NOTE | 2018-03-13 10:39 | CT ---
BRAIN CT WITHOUT IV CONTRAST: History: Follow up right intracranial hemorrhage. Comparison: 03-11-18 FINDINGS: Right ventriculostomy tube has been placed. There is again noted to be patchy intraparenchymal and in traventricular and subarachnoid hemorrhagic changes bilaterally, worse on the right side. Temporal ho rns of the lateral ventricles appear to be slightly more decompressed. No evidence for new hemorrhage or new mass. IMPRESSION: Improving extensive intracranial hemorrhage including intraparenchymal, intraventricular, and subarac hnoid hemorrhagic changes with decrease in the dilatation of the previously noted right temporal horn . No evidence for new mass or midline shift or new hemorrhage. Continued short term follow up. POS: [facility]
--- NOTE | 2018-03-13 11:57 | RAD ---
RADIOGRAPH CHEST 1 VIEW: Date: 03/13/2018 Time: 10:17 a.m. HISTORY: A 57-year-old female with tachypnea. COMPARISON: No prior chest radiographs are available. FINDINGS: This is a supine image, which would be insensitive to pneumothorax detection. What appears to be a D obhoff feeding tube descends the midline of the chest and then obliquely crosses to the left upper qu adrant of the abdominal cavity, with the distal tip outside of the field of view. There is pulmonary vascular engorgement. There are diffuse interstitial densities bilaterally. This is confluent into air space densities at the right base and retrocardiac left lower lobe base. No cardiomegaly. No m idline shift. IMPRESSION: 1. Pulmonary edema. 2. Dobhoff feeding tube. BRYANT [] POS: VERNELL
--- NOTE | 2018-03-13 12:10 | PRG ---
DATE OF SERVICE: 03/13/2018 SERVICE: Pulmonary Medicine. INTERVAL HISTORY: The patient was extubated yesterday. She required significant amounts of sedation overnight in order to remain comfortable. She has been calling out and screaming curse words. Outside of this, she has been a little bit more tachypneic today. She is a little lethargic and drowsy. Neurologically, however, she has not changed very much. She is going down for a CT scan this morning and the results are discussed below. PHYSICAL EXAMINATION: VITAL SIGNS: Afebrile, pulse 66, respirations 35, saturation 93% on 2 liters nasal cannula. GENERAL: Patient is somnolent, but wakes up with some stimulation. HEENT: Normocephalic. Status post craniotomy. Ventriculostomy drain is in place. LUNGS: Reduced air entry with prolonged expiratory phase. A little bit of expiratory wheezing is appreciated. HEART: Normal rate and regular. ABDOMEN: Soft, nontender, nondistended. Bowel sounds are positive. MUSCULOSKELETAL: No cyanosis or clubbing. There is no pitting in the bilateral lower extremities. LABORATORY DATA: WBC 8.3, hemoglobin 10.4, platelets 75,000 and roughly stable. Chloride 117 and sodium 143. Basic metabolic profile is otherwise unremarkable. Phosphorus and magnesium fall within the normal limits. Hepatitis C is positive. IMAGING: CT of the brain demonstrates pneumocephalus, intraparenchymal hematoma is resolving. No active extravasation of blood is evident. There is a subarachnoid hemorrhage and intraventricular extension of blood. There are significant amounts of blood products pulling in that location. ASSESSMENT: 1. Intraparenchymal hemorrhage with intraventricular and subarachnoid extension. 2. Chronic obstructive pulmonary disease with acute exacerbation. 2. Alcohol abuse. 3. Thrombocytopenia. 4. Cocaine abuse. 5. Delirium tremens. PLAN: The patient is fairly sick right now. We will get a chest x-ray. We will watch her neurologic status closely and if she has any deterioration in her neurologic function, repeat imaging and subsequent procedure will be considered. We will continue supportive care including tube feeds and p.o. medications. We will introduce some blood pressure meds per feeding tube. MTDD
--- NOTE | 2018-03-13 12:46 | PRG ---
DATE OF SERVICE: 03/13/2018 Ms. Arrieta has now been extubated and continues to demonstrate slow improvement. She prefers to keep her eyes closed, but does say "ouch" to noxious stimuli. She localizes in the right upper and right lower extremity and withdraws in the left lower extremity and weakly in the left upper extremity. He r wounds are healing well. Her drain output has been approximately [address] demonstrates co ntinued improvement in her parenchymal and subarachnoid hemorrhage with also improvement in her ventr icular caliber. If her drain output remains low and suboptimal then we will likely remove it tomorr ow morning.
[2018-03-13] MEDS: Carvedilol 6.25 MG TAB PO SCH (16:14)
--- NOTE | 2018-03-13 19:24 | PDOC.PN ---
- Subjective Encounter Start Date: 03/13/18 Encounter Start Time: 12:45 Subjective: pt drowsy - Objective Vital Signs & Weight: Vital Signs (12 hours) Temp Pulse Resp BP Pulse Ox 03/13/18 19:00 97.6 F 03/13/18 18:19 56 L 38 H 96 03/13/18 16:14 121/86 03/13/18 16:00 98.7 F 03/13/18 14:16 54 L 32 H 03/13/18 12:00 98.2 F 03/13/18 11:56 123/85 03/13/18 10:32 61 35 H Weight Admit Weight 138 lb Weight 149 lb 11.102 oz Most Recent Monitor Data Heart Rate from ECG 59 NIBP 138/65 NIBP BP-Mean 82 Respiration from ECG 39 SpO2 96 I&O: 03/12/18 03/13/18 03/14/18 06:59 06:59 06:59 Intake Total 3100 2509.5 1621 Output Total 1196 1960 720 Balance 1904 549.5 901 Result Diagrams: 03/13/18 04:40 03/13/18 04:40 Phys Exam - Physical Examination mild rhonchi all over lungs Cardiovascular: RRR, no significant murmur, no rub, gallop, irregular Gastrointestinal: soft, positive bowel sounds Musculoskeletal: no edema Dx/Plan - Plan 1) Status post craniotomy (2) Respiratory insufficiency/failure (3) Cerebral edema (4) Intracranial hemorrhage (5) Abnormal LFTs (6) Alcohol abuse (7) Chronic hepatitis C (8) Cocaine abuse plan: pt s/p craniotomy for intrapranchymal hemorrhage. pt exubated 03/12 appears tachypenic. continue iv hydration, pt is too sedated to start diet. * . Review of Systems - Review of Systems Other: pt is sedated - Medications/Allergies Allergies/Adverse Reactions: Allergies Allergy/AdvReac Type Severity Reaction Status Date / Time No Known Drug Allergies Allergy Verified 03/09/18 17:54 Medications: Current Medications Acetaminophen (Tylenol) 650 mg OK Q6H PRN PRN Reason: Headache/Fever or Pain Last Admin: 03/10/18 18:18 Dose: 650 mg Acetaminophen (Tylenol) 650 mg PO Q6H PRN PRN Reason: Headache/Fever or Pain Last Admin: 03/10/18 08:40 Dose: 650 mg Albuterol/Ipratropium (Duoneb) 3 ml NEB [id number] [facility] Last Admin: 03/13/18 18:19 Dose: 3 ml Carvedilol (Coreg) 6.25 mg PO BID-WM [facility] Last Admin: 03/13/18 16:14 Dose: Not Given Clonidine (Catapres) 0.1 mg PO Q4H PRN PRN Reason: Systolic BP > 160 Last Admin: 03/12/18 22:13 Dose: 0.1 mg Cyanocobalamin (Vitamin B-12) 1,000 mcg PO DAILY [facility] Last Admin: 03/13/18 09:00 Dose: 1,000 mcg Docusate Sodium (Colace) 100 mg PO BIDPRN PRN PRN Reason: Constipation Last Admin: 03/10/18 08:40 Dose: 100 mg Famotidine (Pepcid) 20 mg PO BID [facility] Last Admin: 03/13/18 09:00 Dose: 20 mg Folic Acid (Folvite) 1 mg PO DAILY [facility] Last Admin: 03/13/18 09:00 Dose: 1 mg Hydralazine HCl (Apresoline) 20 mg SLOW IVP Q15MIN PRN PRN Reason: Sbp Greater Than 140 Last Admin: 03/12/18 19:32 Dose: 20 mg Nicardipine HCl 25 mg/ Sodium (Chloride) 250 mls @ 0 mls/hr IVPB INF PRN; Protocol; Titrate PRN Reason: TO KEEP SBP < 150 mmHg Levetiracetam 500 mg/ Device 100 mls @ 200 mls/hr IVPB BID [facility] Last Admin: 03/13/18 09:00 Dose: 100 mls Dexmedetomidine HCl 200 mcg/ (Sodium Chloride) 50 mls @ 0 mls/hr IVPB INF [facility]; Titrate PRN Reason: Protocol Last Admin: 03/13/18 17:43 Dose: 50 mls Sodium Chloride (Normal Saline 0.9%) 1,000 mls @ 80 mls/hr IV .[id number] [facility] Last Admin: 03/13/18 09:01 Dose: 1,000 mls Cefazolin Sodium 1 gm/ Syringe (2.5 ml/ Sterile Water) 10 mls @ 120 mls/hr SLOW IVP Q8HR [facility] Last Admin: 03/13/18 13:49 Dose: 10 mls Iron/Minerals/Multivitamins (Theragran M) 1 tab PO DAILY [facility] Last Admin: 03/13/18 09:00 Dose: 1 tab Labetalol HCl (Normodyne) 20 mg SLOW IVP Q15MIN PRN PRN Reason: Sbp Greater Than 140 Last Admin: 03/11/18 02:38 Dose: 20 mg Lorazepam (Ativan) 2 mg SLOW IVP Q2H PRN PRN Reason: Agitation Last Admin: 03/13/18 14:47 Dose: 2 mg Magnesium Hydroxide (Milk Of Magnesium) 30 ml PO DAILYPRN PRN PRN Reason: Constipation Mineral Oil/White Petrolatum (Lacri-Lube Ointment) 0 gm EA EYE PRN PRN PRN Reason: Dry Eyes Ondansetron HCl (Zofran) 4 mg IVP Q6H PRN PRN Reason: Nausea/Vomiting Ondansetron HCl (Zofran Odt) 4 mg SL Q6H PRN PRN Reason: Nausea/Vomiting Last Admin: 03/09/18 20:33 Dose: 4 mg Prednisone (Prednisone) 40 mg PO QA-[facility] Stop: 03/15/18 08:01 Last Admin: 03/13/18 07:17 Dose: 40 mg Propofol (Diprivan) 1,000 mg IV INF PRN; Protocol PRN Reason: TO ACHIEVE GOAL RASS Stop: 04/10/18 13:38 Last Admin: 03/12/18 08:03 Dose: 1,000 mg Sodium Chloride (Flush - Normal Saline) 10 ml IVF PRN PRN PRN Reason: Saline Flush Last Admin: 03/13/18 14:47 Dose: 10 ml Thiamine HCl (Thiamine) 100 mg PO DAILY [facility] Last Admin: 03/13/18 09:00 Dose: 100 mg
[2018-03-14] MEDS: Sodium Chloride 0.9% 1,000 ML IV SCH ×2 (02:59→10:24)
[2018-03-14] MEDS: CEFAZOLIN 1 GM, Syringe 2.5 ML in Sterile Water 7.5 ML SLOW IVP SCH ×3 (05:07→21:44)
[2018-03-14 06:12] LABS: #Eosinphils 0.1 thou/uL (0.0-0.7); #Lymphocytes 2.8 thou/uL (1.20-3.40); #Monocytes 0.6 thou/uL (0.11-0.59); #Neutrophils 3.7 thou/uL (1.40-6.50); %Basophils 0.4 % (0.0-1.0); %Eosinophils 1.5 % (0.0-10.0); %Lymphocytes 39.3 % (21.0-51.0); %Monocytes 7.7 % (0.0-10.0); %Neutrophils 51.1 % (42.0-75.0); Hemoglobin 10.2 g/dL (12.0-16.0); Mean Corpuscular HGB CONC 34.2 g/dL (32.0-36.0); Mean Corpuscular Hemoglobin 36.8 pg (27.0-31.0); Mean Platelet Volume 7.7 fL (7.4-10.4); Platelet Count 63 thou/uL (130-400); RBC Distribution Width 12.8 % (11.5-14.5); Red Blood Cell (RBC) Count 2.77 mill/uL (4.20-5.40); White Blood Cell (WBC) Count 7.2 thou/uL (4.8-10.8)
[2018-03-14 06:22] LABS: Anion Gap 10 mmol/L (10-20); BUN (Urea Nitrogen) 21 mg/dL (9.8-20.1); Calc. Creatinine Clearance 107 mL/min (70-130); Calcium 8.2 mg/dL (7.8-10.44); Carbon Dioxide 21 mmol/L (22-29); Chloride 115 mmol/L (98-107); Estimated GFR-MDRD Greater than 90; Glucose 292 mg/dL (70-105); Potassium 3.9 mmol/L (3.5-5.1); Sodium 142 mmol/L (136-145)
[2018-03-14] MEDS: predniSONE 20 MG TAB PO SCH (08:12)
[2018-03-14] MEDS: Carvedilol 6.25 MG TAB PO SCH ×2 (08:13→17:27)
[2018-03-14] MEDS: Folic Acid 1 MG TAB PO SCH (08:33)
[2018-03-14] MEDS: Cyanocobalamin (Vitamin B-12) 1,000 MCG TAB PO SCH (08:33)
[2018-03-14] MEDS: Multivitamin W/ Minerals 1 TAB PO SCH (08:33)
[2018-03-14] MEDS: Famotidine 20 MG TAB PO SCH ×2 (08:33→21:40)
[2018-03-14] MEDS: Lorazepam 2 MG/ML VIAL SLOW IVP PRN ×2 (08:47→22:04)
[2018-03-14 09:54] LABS: INR-International Normal Ratio 1.3; PTT 27.9 SEC (22.9-36.1); Prothrombin Time 16.4 SEC (12.0-14.7)
[2018-03-14] MEDS ORDERED: Sodium Chloride 0.9% 1,000 ML IV SCH (16:51)
[2018-03-14] MEDS ORDERED: Senokot S 8.6-50 MG TAB PO SCH (17:00)
[2018-03-14] MEDS ORDERED: Furosemide 20 MG/2 ML VIAL SLOW IVP SCH (17:00)
--- NOTE | 2018-03-14 18:09 | PRG ---
DATE OF SERVICE: 03/14/2018 SERVICE: Pulmonary Medicine. INTERVAL HISTORY: The patient is doing fine from a respiratory standpoint. Mentation avila, things a re about stable compared to yesterday. She has not had a bowel movement in several days. Otherwise, there were no overnight events. PHYSICAL EXAMINATION: VITAL SIGNS: Afebrile, pulse 75, blood pressure 145/72, respirations 37, saturation 96% on 2 liters nasal cannula. GENERAL: The patient is somnolent. HEENT: Normocephalic. Previous craniotomy and ventriculostomy drain is in place. Sclerae are white , conjunctivae pink. Oral mucosa is moist without lesions. LUNGS: Decent air entry bilaterally. There is a prolonged expiratory phase, but no wheezing present . HEART: Normal rate, regular. ABDOMEN: Soft, nontender, and nondistended. Bowel sounds are positive. MUSCULOSKELETAL: No cyanosis or clubbing. There is no pitting in the bilateral lower extremities. NEUROLOGIC: Grossly nonfocal. LABORATORY DATA: WBC 7.2, hemoglobin 10.2, platelets 63,000 and roughly stable. Chloride is down tr ending to 115, sodium has improved to 142. Basic metabolic profile is otherwise unremarkable. Creat inine 0.64. IMAGING: Chest x-ray from yesterday demonstrates touch of pulmonary edema. Enteric catheter is in g ood position. ASSESSMENT: 1. Intraparenchymal hemorrhage with intraventricular and subarachnoid extension. 2. Acute hypoxic respiratory failure. 3. Thrombocytopenia. 4. Alcohol abuse. 5. Cocaine abuse. 6. Delirium tremens: PLAN: We will wean away the dexmedetomidine as tolerated. I will provide her with a small dose of L asix. Supportive measures will otherwise be continued. We will watch for increasing signs of somnol ence. If we identify these, an airway may need to be secured.
[2018-03-14] MEDS: Metoclopramide HCl 10 MG/2 ML VIAL IVP SCH ×2 (18:34→23:56)
--- NOTE | 2018-03-14 20:04 | PRG ---
DATE OF SERVICE: 03/14/2018 Nii Plummer PA-C dictating for Dr. Parveen Maya. SUBJECTIVE: Ms. Arrieta is now postoperative day #4, having undergone replacement of EVD and removal o f intraventricular hemorrhage. The patient continues to improve neurologically. Her EVD put out 15 mL overnight. We will continue to drain at this time and continue Ancef. I would also like to elida nue her Keppra. Her platelets continue to decrease and we will order six pack of platelets and reche ck her coags. PHYSICAL EXAMINATION: She is at her neurologic baseline. When aroused, she moans in pain. She spontaneously moves the rig ht upper and right lower extremity and will withdrawal slower in the left upper extremity than the le ft lower extremity. She does not follow commands currently. ASSESSMENT AND PLAN: Again, we will continue the drain, but likely removed in the next few days. We will check back on her lab results as well. This is a late dictation and the patient was actually seen at 7:45 this morning.
[2018-03-14] MEDS: Senokot S 8.6-50 MG TAB PO SCH (21:40)
[2018-03-15 04:16] LABS: #Basophils 0.1 thou/uL (0.0-0.2); #Eosinphils 0.1 thou/uL (0.0-0.7); #Lymphocytes 2.8 thou/uL (1.20-3.40); #Monocytes 0.9 thou/uL (0.11-0.59); #Neutrophils 4.4 thou/uL (1.40-6.50); %Eosinophils 1.6 % (0.0-10.0); %Lymphocytes 33.7 % (21.0-51.0); %Neutrophils 52.7 % (42.0-75.0); Hemoglobin 10.5 g/dL (12.0-16.0); Mean Corpuscular HGB CONC 33.9 g/dL (32.0-36.0); Mean Corpuscular Hemoglobin 36.4 pg (27.0-31.0); Mean Platelet Volume 9.5 fL (7.4-10.4); Platelet Count 95 thou/uL (130-400); RBC Distribution Width 12.4 % (11.5-14.5); Red Blood Cell (RBC) Count 2.88 mill/uL (4.20-5.40); White Blood Cell (WBC) Count 8.3 thou/uL (4.8-10.8)
[2018-03-15 04:24] LABS: Anion Gap 10 mmol/L (10-20); BUN (Urea Nitrogen) 17 mg/dL (9.8-20.1); Calc. Creatinine Clearance 113 mL/min (70-130); Calcium 8.4 mg/dL (7.8-10.44); Carbon Dioxide 24 mmol/L (22-29); Chloride 111 mmol/L (98-107); Estimated GFR-MDRD Greater than 90; Glucose 265 mg/dL (70-105); Potassium 3.6 mmol/L (3.5-5.1); Sodium 141 mmol/L (136-145)
--- NOTE | 2018-03-15 06:13 | PDOC.PN ---
- Subjective Encounter Start Date: 03/14/18 Encounter Start Time: 12:00 Subjective: pt asleep on mild sedation - Objective Vital Signs & Weight: Vital Signs (12 hours) Temp Pulse Resp Pulse Ox 03/15/18 05:00 100 F H 03/15/18 04:00 99 F 03/15/18 02:56 76 28 H 97 03/15/18 01:00 98.8 F 03/15/18 00:00 96 03/14/18 23:00 99.4 F 03/14/18 22:29 73 36 H 97 03/14/18 21:00 98.9 F 03/14/18 20:00 98.5 F 73 36 H 100 03/14/18 19:00 98.5 F 03/14/18 18:45 70 34 H 100 Weight Admit Weight 138 lb 10.732 oz Weight 145 lb 11.609 oz Most Recent Monitor Data Heart Rate from ECG 74 NIBP 157/70 NIBP BP-Mean 85 Respiration from ECG 32 SpO2 97 I&O: 03/13/18 03/14/18 03/15/18 06:59 06:59 06:59 Intake Total 2509.5 3534 3586 Output Total 1960 1615 3469 Balance 549.5 1919 117 Result Diagrams: 03/15/18 04:05 03/15/18 04:05 Phys Exam - Physical Examination currently has a drain mild rhonchi Cardiovascular: RRR, no significant murmur, no rub, gallop, irregular Gastrointestinal: soft, positive bowel sounds Musculoskeletal: no edema, pulses present, edema present Dx/Plan - Plan 1) Status post craniotomy (2) Respiratory insufficiency/failure (3) Cerebral edema (4) Intracranial hemorrhage (5) Abnormal LFTs (6) Alcohol abuse (7) Chronic hepatitis C (8) Cocaine abuse 9) thrombocytopenia plan: pt s/p craniotomy for intrapranchymal hemorrhage. pt exubated 03/12 is on dexmedetomidine. pt has a ng tube for tube feeding. s/p platelets transfusion. * . Review of Systems - Review of Systems Other: unable to obtain - Medications/Allergies Allergies/Adverse Reactions: Allergies Allergy/AdvReac Type Severity Reaction Status Date / Time No Known Drug Allergies Allergy Verified 03/09/18 17:54 Medications: Current Medications Acetaminophen (Tylenol) 650 mg MA Q6H PRN PRN Reason: Headache/Fever or Pain Last Admin: 03/10/18 18:18 Dose: 650 mg Acetaminophen (Tylenol) 650 mg PO Q6H PRN PRN Reason: Headache/Fever or Pain Last Admin: 03/10/18 08:40 Dose: 650 mg Albuterol/Ipratropium (Duoneb) 3 ml NEB [id number] [facility] Last Admin: 03/15/18 02:56 Dose: 3 ml Carvedilol (Coreg) 6.25 mg PO BID-WM [facility] Last Admin: 03/14/18 17:27 Dose: 6.25 mg Clonidine (Catapres) 0.1 mg PO Q4H PRN PRN Reason: Systolic BP > 160 Last Admin: 03/12/18 22:13 Dose: 0.1 mg Cyanocobalamin (Vitamin B-12) 1,000 mcg PO DAILY [facility] Last Admin: 03/14/18 08:33 Dose: 1,000 mcg Docusate Sodium (Colace) 100 mg PO BIDPRN PRN PRN Reason: Constipation Last Admin: 03/10/18 08:40 Dose: 100 mg Famotidine (Pepcid) 20 mg PO BID [facility] Last Admin: 03/14/18 21:40 Dose: 20 mg Folic Acid (Folvite) 1 mg PO DAILY [facility] Last Admin: 03/14/18 08:33 Dose: 1 mg Hydralazine HCl (Apresoline) 20 mg SLOW IVP Q15MIN PRN PRN Reason: Sbp Greater Than 140 Last Admin: 03/12/18 19:32 Dose: 20 mg Nicardipine HCl 25 mg/ Sodium (Chloride) 250 mls @ 0 mls/hr IVPB INF PRN; Protocol; Titrate PRN Reason: TO KEEP SBP < 150 mmHg Levetiracetam 500 mg/ Device 100 mls @ 200 mls/hr IVPB BID [facility] Last Admin: 03/14/18 21:58 Dose: 100 mls Dexmedetomidine HCl 200 mcg/ (Sodium Chloride) 50 mls @ 0 mls/hr IVPB INF [facility]; Titrate PRN Reason: Protocol Last Admin: 03/15/18 01:13 Dose: 50 mls Cefazolin Sodium 1 gm/ Syringe (2.5 ml/ Sterile Water) 10 mls @ 120 mls/hr SLOW IVP Q8HR [facility] Last Admin: 03/14/18 21:44 Dose: 10 mls Sodium Chloride (Normal Saline 0.9%) 1,000 mls @ 0 mls/hr IV .Q0M [facility] PRN Reason: KVO Last Admin: 03/14/18 17:24 Dose: 1,000 mls Iron/Minerals/Multivitamins (Theragran M) 1 tab PO DAILY [facility] Last Admin: 03/14/18 08:33 Dose: 1 tab Labetalol HCl (Normodyne) 20 mg SLOW IVP Q15MIN PRN PRN Reason: Sbp Greater Than 140 Last Admin: 03/11/18 02:38 Dose: 20 mg Lactulose (Lactulose) 20 gm PO DAILY [facility] Lorazepam (Ativan) 2 mg SLOW IVP Q2H PRN PRN Reason: Agitation Last Admin: 03/14/18 22:04 Dose: 2 mg Magnesium Hydroxide (Milk Of Magnesium) 30 ml PO DAILYPRN PRN PRN Reason: Constipation Mineral Oil/White Petrolatum (Lacri-Lube Ointment) 0 gm EA EYE PRN PRN PRN Reason: Dry Eyes Ondansetron HCl (Zofran) 4 mg IVP Q6H PRN PRN Reason: Nausea/Vomiting Ondansetron HCl (Zofran Odt) 4 mg SL Q6H PRN PRN Reason: Nausea/Vomiting Last Admin: 03/09/18 20:33 Dose: 4 mg Prednisone (Prednisone) 40 mg PO QA-[facility] Stop: 03/15/18 08:01 Last Admin: 03/14/18 08:12 Dose: 40 mg Senna/Docusate Sodium (Senokot S) 1 tab PO BID [facility] Last Admin: 03/14/18 21:40 Dose: 1 tab Sodium Chloride (Flush - Normal Saline) 10 ml IVF PRN PRN PRN Reason: Saline Flush Last Admin: 03/13/18 14:47 Dose: 10 ml Thiamine HCl (Thiamine) 100 mg PO DAILY [facility] Last Admin: 03/14/18 08:33 Dose: 100 mg
[2018-03-15] MEDS: CEFAZOLIN 1 GM, Syringe 2.5 ML in Sterile Water 7.5 ML SLOW IVP SCH ×4 (06:47→22:25)
[2018-03-15] MEDS: Acetaminophen 650 MG Suppository PR PRN (06:50)
[2018-03-15] MEDS: Folic Acid 1 MG TAB PO SCH (09:11)
[2018-03-15] MEDS: predniSONE 20 MG TAB PO SCH (09:11)
[2018-03-15] MEDS: Famotidine 20 MG TAB PO SCH ×2 (09:11→20:43)
[2018-03-15] MEDS: Senokot S 8.6-50 MG TAB PO SCH ×2 (09:11→19:39)
[2018-03-15] MEDS: Carvedilol 6.25 MG TAB PO SCH ×2 (09:11→17:37)
[2018-03-15] MEDS: Cyanocobalamin (Vitamin B-12) 1,000 MCG TAB PO SCH (09:11)
[2018-03-15] MEDS: Piperacillin/Tazobactam 3.375 GM in Sodium Chloride 0.9% 100 ML IVPB SCH ×3 (09:12→20:44)
[2018-03-15] MEDS: Multivitamin W/ Minerals 1 TAB PO SCH (09:12)
[2018-03-15] MEDS: Acetaminophen 650 MG/20.3 ML UDCUP PO SCH ×3 (09:12→20:43)
[2018-03-15] MEDS ORDERED: Insulin Detemir 100 UNITS/ML 5 UNITS in Pre-Filled Syringe 1 EACH SC SCH (09:45)
[2018-03-15] MEDS ORDERED: Dextrose 5% in Water 1,000 ML IV PRN (09:45)
[2018-03-15] MEDS ORDERED: Dextrose 50% Abboject 50 ML SYRINGE SLOW IVP PRN (09:45)
--- NOTE | 2018-03-15 09:57 | PRG ---
DATE OF SERVICE: 03/15/2018 SERVICE: Pulmonary Medicine. INTERVAL HISTORY: Patient spiked some fevers overnight. Her blood pressure has been elevated. She does say ouch very clearly whenever there is a noxious stimuli that is presented to her in all 4 extr emities. Otherwise, she is making incomprehensible sounds. We will continue to back off on dexmedet omidine through the day. PHYSICAL EXAMINATION: VITAL SIGNS: T-max 102.6, pulse 67, blood pressure 142/70, respirations 31, saturation 97% on 2 lite rs nasal cannula. GENERAL: The patient is not awake and alert. The patient is encephalopathic. HEENT: Normocephalic, atraumatic. Sclerae are white, conjunctivae pink. Oral mucosa is moist witho ut lesions. LUNGS: Decent air entry. There is a prolonged expiratory phase. There is wheezing. No rhonchi or crackles are appreciated. HEART: Normal rate, regular. ABDOMEN: Soft, nontender, nondistended. Bowel sounds are positive. MUSCULOSKELETAL: No cyanosis or clubbing. There is trace 1+ pitting throughout. GENITOURINARY: There is a Corbin in place. NEUROLOGIC: She localizes discomfort in all 4 extremities, but remains a little encephalopathic. Rc antonio does not open her eyes or attend at this point. With noxious stimuli, she very clearly withdraws a nd says ouch. Otherwise, she is not following any commands. LABORATORY DATA: WBC 8.3, hemoglobin 10.5, platelets 95,000 and improving. INR 1.3. Basic metaboli c profile is essentially unremarkable this morning with improving chloride to 111. Potassium 3.6. B lood sugars ranged from 187-292 over the last several days. IMAGING: Chest x-ray demonstrates right perihilar infiltrate. Enteric catheter courses well below t he level of the diaphragm. Cardiac silhouette is otherwise essentially unremarkable. The perihilar infiltrate is much more pronounced on today's evaluation. ASSESSMENT: 1. Acute hypoxic respiratory failure. 2. Healthcare-associated pneumonia. 3. Intraparenchymal hemorrhage with intraventricular and subarachnoid extension. 4. Thrombocytopenia, improving. 5. Alcohol abuse. 6. Cocaine abuse. 7. Delirium tremens, improving. PLAN: We will sanon culture the patient, initiate empiric antibiotics to cover aspiration related orga nisms. Potassium of 3.6 will be replaced. We will initiate a little bit of insulin. Pulmonary or C ritical Care will continue to follow for the time being. At this point, she does not require intubat ion. We will wean away the Precedex as tolerated.
--- NOTE | 2018-03-15 10:41 | RAD ---
RADIOGRAPH CHEST 1 VIEW: Date: 03/15/18 Time: 0838 HOURS HISTORY: 57-year-old female with fever. COMPARISON: 03/13/18. FINDINGS: Dobbhoff feeding tube. Diffuse mild pulmonary interstitial densities, with central dominance. The bi lateral perihilar air space densities appear slightly worse on the current study compared to prior, w ith a mass-like appearance on the right. Bilateral pleural effusions, small to moderate, have increas ed. No pneumothorax. IMPRESSION: 1. Mild interval worsening of pulmonary interstitial edema. 2. Mild interval worsening of bilateral pleural effusions. 3. This could be fluid volume overload or congestive heart failure. BRYANT [] POS: ASA
[2018-03-15 10:48] LABS: Bilirubin Negative (Negative); Blood, Urine Moderate (Negative); Clarity CLEAR (Clear); Glucose, Urine (Dipstick) 500 mg/dL (Negative); Leukocyte Negative (Negative); Nitrite Negative (Negative); Protein, Urine (Dipstick) Trace mg/dL (Neg-Trace); Specific Gravity, Urine 1.029 (1.002-1.036)
[2018-03-15 10:51] LABS: Bacteria/HPF None Seen HPF (None Seen); Hyaline Casts/LPF 0-3 HYALINE CAST LPF (0-3 Hyaline); RBC/HPF 21-50 HPF (0-3); Squamous Epithelial 0-3 HPF (0-3); WBC/HPF 0-3 HPF (0-3)
--- NOTE | 2018-03-15 12:29 | HP ---
Ms. Arrieta continues to demonstrate neurologic stability. Her EVD has only put out 5 mL without movem ent. Her platelet count is now 95 after one 6-pack of platelets yesterday. Her white blood cell cou nt is 8.3. She did have a fever of 101 degrees Fahrenheit and cultures were obtained. We have done an ultrasound, which was negative. I should note her INR is 1.3 and while a prognosis remains guarde d she has demonstrated some evidence of improvement, although we will continue to keep a close eye on her at this point.
[2018-03-15] MEDS: Insulin Regular 300 UNITS/3 ML VIAL SC PRN ×4 (12:30→23:15)
--- NOTE | 2018-03-15 14:34 | PDOC.PN ---
- Subjective Encounter Start Date: 03/15/18 Encounter Start Time: 09:45 Subjective: pt asleep, off sedation not arousable, - Objective Vital Signs & Weight: Vital Signs (12 hours) Temp Pulse Pulse Pulse Resp BP BP 03/15/18 14:23 79 29 H 03/15/18 11:00 99 F 03/15/18 10:28 66 31 H 03/15/18 10:00 101 F H 03/15/18 09:11 142/70 H 03/15/18 09:07 88 66 177/89 H 03/15/18 08:00 101 F H 76 28 H 03/15/18 06:22 03/15/18 06:20 74 35 H 03/15/18 06:00 101.6 F H 03/15/18 05:00 100 F H 03/15/18 04:00 99 F 03/15/18 02:56 76 28 H BP Pulse Ox Pulse Ox Pulse Ox 03/15/18 14:23 98 03/15/18 11:00 03/15/18 10:28 96 03/15/18 10:00 03/15/18 09:11 03/15/18 09:07 142/70 H 93 L 97 03/15/18 08:00 96 03/15/18 06:22 96 03/15/18 06:20 96 03/15/18 06:00 03/15/18 05:00 03/15/18 04:00 03/15/18 02:56 97 Weight Admit Weight 138 lb 10.732 oz Weight 145 lb 11.609 oz Most Recent Monitor Data Heart Rate from ECG 77 NIBP 164/79 NIBP BP-Mean 106 Respiration from ECG 33 SpO2 97 I&O: 03/14/18 03/15/18 03/16/18 06:59 06:59 06:59 Intake Total 3534 3586 100 Output Total 1615 3560 995 Balance 1919 26 -895 Result Diagrams: 03/15/18 04:05 03/15/18 04:05 Additional Labs: Accuchecks 03/15/18 12:28 POC Glucose 373 H Phys Exam - Physical Examination pt has ng tube, dressing intact Neck: no nodes, no JVD, supple, full ROM Respiratory: no wheezing, no rales, no rhonchi, wheezing present, clear to auscultation bilateral Cardiovascular: RRR, no significant murmur, no rub, gallop, irregular Musculoskeletal: no edema, pulses present, edema present Dx/Plan - Plan 1) Status post craniotomy (2) Respiratory insufficiency/failure (3) health care pneumonia (4) Intracranial hemorrhage (5) Abnormal LFTs (6) Alcohol abuse (7) Chronic hepatitis C (8) Cocaine abuse 9) thrombocytopenia plan: pt s/p craniotomy for intrapranchymal hemorrhage. pt exubated 03/12 is on dexmedetomidine. pt has a ng tube for tube feeding. platelets are stable today. Was suppose to meet daughter today but she cancelled. pt had fever blood cx and urine done and started on abx. * . Review of Systems - Review of Systems Other: unable to obtain - Medications/Allergies Allergies/Adverse Reactions: Allergies Allergy/AdvReac Type Severity Reaction Status Date / Time No Known Drug Allergies Allergy Verified 03/09/18 17:54 Medications: Current Medications Acetaminophen (Tylenol Elixir) 650 mg PO 0300,0900,1500,2100 [facility] Last Admin: 03/15/18 09:12 Dose: 650 mg Albuterol/Ipratropium (Duoneb) 3 ml NEB [id number] [facility] Last Admin: 03/15/18 14:23 Dose: 3 ml Carvedilol (Coreg) 6.25 mg PO BID-WM [facility] Last Admin: 03/15/18 09:11 Dose: 6.25 mg Clonidine (Catapres) 0.1 mg PO Q4H PRN PRN Reason: Systolic BP > 160 Last Admin: 03/12/18 22:13 Dose: 0.1 mg Cyanocobalamin (Vitamin B-12) 1,000 mcg PO DAILY [facility] Last Admin: 03/15/18 09:11 Dose: 1,000 mcg Dextrose/Water (Dextrose 50%) 25 gm SLOW IVP PRN PRN PRN Reason: Hypoglycemia Docusate Sodium (Colace) 100 mg PO BIDPRN PRN PRN Reason: Constipation Last Admin: 03/10/18 08:40 Dose: 100 mg Famotidine (Pepcid) 20 mg PO BID [facility] Last Admin: 03/15/18 09:11 Dose: 20 mg Folic Acid (Folvite) 1 mg PO DAILY [facility] Last Admin: 03/15/18 09:11 Dose: 1 mg Glucagon (Glucagon) 1 mg IM PRN PRN PRN Reason: Hypoglycemia Hydralazine HCl (Apresoline) 20 mg SLOW IVP Q15MIN PRN PRN Reason: Sbp Greater Than 140 Last Admin: 03/12/18 19:32 Dose: 20 mg Nicardipine HCl 25 mg/ Sodium (Chloride) 250 mls @ 0 mls/hr IVPB INF PRN; Protocol; Titrate PRN Reason: TO KEEP SBP < 150 mmHg Levetiracetam 500 mg/ Device 100 mls @ 200 mls/hr IVPB BID [facility] Last Admin: 03/15/18 09:50 Dose: 100 mls Dexmedetomidine HCl 200 mcg/ (Sodium Chloride) 50 mls @ 0 mls/hr IVPB INF [facility]; Titrate PRN Reason: Protocol Last Admin: 03/15/18 09:12 Dose: 50 mls Sodium Chloride (Normal Saline 0.9%) 1,000 mls @ 0 mls/hr IV .Q0M [facility] PRN Reason: KVO Last Admin: 03/14/18 17:24 Dose: 1,000 mls Cefazolin Sodium 1 gm/ Syringe (2.5 ml/ Sterile Water) 10 mls @ 120 mls/hr SLOW IVP Q8HR [facility] Last Admin: 03/15/18 14:15 Dose: 10 mls Piperacillin Sod/Tazobactam (Sod 3.375 gm/ Sodium Chloride) 100 mls @ 200 mls/ hr IVPB 0300,0900,1500,2100 [facility] Stop: 03/22/18 09:01 Last Admin: 03/15/18 09:12 Dose: 100 mls Dextrose/Water (D5w) 1,000 mls @ 0 mls/hr IV .Q0M PRN; As Directed PRN Reason: Hypoglycemia Insulin Detemir 5 units/ (Miscellaneous Medication) 0.05 mls @ 0 mls/hr SC BID [facility] Insulin Human Regular (Humulin R) 0 units SC .MODERATE SLIDING SC PRN PRN Reason: Moderate Correctional Scale Last Admin: 03/15/18 12:30 Dose: 10 unit Iron/Minerals/Multivitamins (Theragran M) 1 tab PO DAILY [facility] Last Admin: 03/15/18 09:12 Dose: 1 tab Labetalol HCl (Normodyne) 20 mg SLOW IVP Q15MIN PRN PRN Reason: Sbp Greater Than 140 Last Admin: 03/11/18 02:38 Dose: 20 mg Lactulose (Lactulose) 20 gm PO DAILY [facility] Last Admin: 03/15/18 09:12 Dose: 20 gm Magnesium Hydroxide (Milk Of Magnesium) 30 ml PO DAILYPRN PRN PRN Reason: Constipation Mineral Oil/White Petrolatum (Lacri-Lube Ointment) 0 gm EA EYE PRN PRN PRN Reason: Dry Eyes Ondansetron HCl (Zofran) 4 mg IVP Q6H PRN PRN Reason: Nausea/Vomiting Ondansetron HCl (Zofran Odt) 4 mg SL Q6H PRN PRN Reason: Nausea/Vomiting Last Admin: 03/09/18 20:33 Dose: 4 mg Senna/Docusate Sodium (Senokot S) 1 tab PO BID [facility] Last Admin: 03/15/18 09:11 Dose: 1 tab Sodium Chloride (Flush - Normal Saline) 10 ml IVF PRN PRN PRN Reason: Saline Flush Last Admin: 03/13/18 14:47 Dose: 10 ml Thiamine HCl (Thiamine) 100 mg PO DAILY [facility] Last Admin: 03/15/18 09:11 Dose: 100 mg
[2018-03-15] MEDS: Insulin Detemir 100 UNITS/ML 5 UNITS in Pre-Filled Syringe 1 EACH SC SCH (20:43)
[2018-03-16] MEDS: hydrALAZINE 20 MG/ML VIAL SLOW IVP PRN ×2 (01:22→17:40)
[2018-03-16] MEDS: Piperacillin/Tazobactam 3.375 GM in Sodium Chloride 0.9% 100 ML IVPB SCH ×4 (02:13→21:35)
[2018-03-16] MEDS: Acetaminophen 650 MG/20.3 ML UDCUP PO SCH ×4 (02:13→21:35)
[2018-03-16] MEDS: CEFAZOLIN 1 GM, Syringe 2.5 ML in Sterile Water 7.5 ML SLOW IVP SCH ×3 (05:36→21:36)
[2018-03-16 05:44] LABS: #Eosinphils 0.2 thou/uL (0.0-0.7); #Lymphocytes 2.8 thou/uL (1.20-3.40); #Monocytes 0.6 thou/uL (0.11-0.59); #Neutrophils 2.5 thou/uL (1.40-6.50); %Basophils 0.1 % (0.0-1.0); %Eosinophils 3.2 % (0.0-10.0); %Lymphocytes 46.1 % (21.0-51.0); %Monocytes 10.1 % (0.0-10.0); %Neutrophils 40.5 % (42.0-75.0); Hemoglobin 9.7 g/dL (12.0-16.0); Mean Corpuscular HGB CONC 33.8 g/dL (32.0-36.0); Mean Corpuscular Hemoglobin 36.2 pg (27.0-31.0); Mean Platelet Volume 9.6 fL (7.4-10.4); Platelet Count 73 thou/uL (130-400); RBC Distribution Width 12.3 % (11.5-14.5); Red Blood Cell (RBC) Count 2.68 mill/uL (4.20-5.40); White Blood Cell (WBC) Count 6.1 thou/uL (4.8-10.8)
[2018-03-16 05:58] LABS: Anion Gap 8 mmol/L (10-20); BUN (Urea Nitrogen) 21 mg/dL (9.8-20.1); Calc. Creatinine Clearance 113 mL/min (70-130); Calcium 8.4 mg/dL (7.8-10.44); Carbon Dioxide 25 mmol/L (22-29); Chloride 114 mmol/L (98-107); Estimated GFR-MDRD Greater than 90; Glucose 194 mg/dL (70-105); Potassium 3.5 mmol/L (3.5-5.1); Sodium 143 mmol/L (136-145)
[2018-03-16] MEDS: Insulin Regular 300 UNITS/3 ML VIAL SC PRN ×3 (06:08→17:40)
[2018-03-16] MEDS: Carvedilol 6.25 MG TAB PO SCH ×2 (09:13→16:58)
[2018-03-16] MEDS: Famotidine 20 MG TAB PO SCH ×2 (09:25→21:34)
[2018-03-16] MEDS: Cyanocobalamin (Vitamin B-12) 1,000 MCG TAB PO SCH (09:25)
[2018-03-16] MEDS: Multivitamin W/ Minerals 1 TAB PO SCH (09:25)
[2018-03-16] MEDS: Senokot S 8.6-50 MG TAB PO SCH ×2 (09:25→21:35)
[2018-03-16] MEDS: Folic Acid 1 MG TAB PO SCH (09:25)
[2018-03-16] MEDS: Insulin Detemir 100 UNITS/ML 5 UNITS in Pre-Filled Syringe 1 EACH SC SCH ×2 (09:27→21:36)
--- NOTE | 2018-03-16 13:27 | PRG ---
DATE OF SERVICE: 03/16/2018 SERVICE: Pulmonary Medicine INTERVAL HISTORY: The patient is doing fine from a respiratory standpoint. She is breathing comfort ably. Today, she is much more we awake. She is talking in sentences and requesting some food. That being said, she will not open her eyes or attend. She is following commands and moving the right up per and lower extremity. She is not able to move the left upper and lower extremity on command, but she does withdraw from noxious stimuli. PHYSICAL EXAMINATION: VITAL SIGNS: Afebrile currently. T-max yesterday was 102.6 in the morning. Pulse 70, blood pressur e 128/58, respirations 23, saturation 99% on 2 liters nasal cannula. GENERAL: The patient is awake, alert, no apparent distress. LUNGS: Decent air entry. There is no prolonged expiratory phase or wheezing. HEART: Normal rate, regular. ABDOMEN: Soft, nontender, nondistended. Bowel sounds are positive. MUSCULOSKELETAL: No cyanosis or clubbing. There is no pitting in the bilateral lower extremities. LABORATORY: WBC 6.1, hemoglobin 9.7, platelets 73,000. INR 1.3. Creatinine 0.59, BUN 21, anion gap 8, chloride 114 and up trending. Sodium 143 is also up trending. Blood sugar is ranging from 208 t o 373. Blood cultures x2 and urine culture are negative. ASSESSMENT: 1. Acute hypoxic respiratory failure. 2. Healthcare-associated pneumonia, improving. 3. Intraparenchymal hemorrhage with intraventricular extension and subarachnoid extension. 4. Thrombocytopenia. 5. Alcohol abuse. 6. Cocaine abuse. 7. Delirium tremens, resolving. PLAN: We will continue to titrate the Precedex away as tolerated. We will continue her antibiotics. Heller cultures currently pending. We will gently increase her insulin through time. She will need t o remain in the ICU until she more clearly turns the corner from a mentation standpoint.
--- NOTE | 2018-03-16 15:14 | PDOC.PN ---
- Subjective Encounter Start Date: 03/16/18 Encounter Start Time: 13:00 Subjective: pt asleep in bed -: Nurse stated that pt was oriented to self today - Objective Vital Signs & Weight: Vital Signs (12 hours) Temp Pulse Pulse Pulse Resp BP BP 03/16/18 14:38 56 L 19 03/16/18 12:00 99.0 F 03/16/18 11:29 52 L 21 H 03/16/18 09:13 129/55 L 03/16/18 08:44 70 57 L 133/50 L 03/16/18 08:07 03/16/18 08:05 52 L 20 03/16/18 08:00 99.4 F 52 L 20 03/16/18 07:00 99.4 F BP Pulse Ox Pulse Ox Pulse Ox 03/16/18 14:38 94 L 03/16/18 12:00 03/16/18 11:29 99 03/16/18 09:13 03/16/18 08:44 113/48 L 96 95 03/16/18 08:07 98 03/16/18 08:05 98 03/16/18 08:00 97 03/16/18 07:00 Weight Admit Weight 138 lb 10.732 oz Weight 147 lb 0.773 oz Most Recent Monitor Data Heart Rate from ECG 51 NIBP 122/62 NIBP BP-Mean 95 Respiration from ECG 22 SpO2 94 I&O: 03/15/18 03/16/18 03/17/18 06:59 06:59 06:59 Intake Total 3586 2517 Output Total 3560 2465 470 Balance 26 52 -470 Result Diagrams: 03/16/18 05:22 03/16/18 05:22 Additional Labs: Accuchecks 03/16/18 03/15/18 03/15/18 10:10 23:15 20:35 POC Glucose 287 H 208 H 261 H 03/15/18 18:27 POC Glucose 247 H Phys Exam - Physical Examination incision to right cranium intact Neck: no nodes, no JVD, supple, full ROM mild rhonchi Cardiovascular: RRR, no significant murmur, no rub, gallop, irregular Gastrointestinal: soft, positive bowel sounds Musculoskeletal: no edema, pulses present, edema present Dx/Plan - Plan * 1) Status post craniotomy (2) Respiratory insufficiency/failure (3) health care pneumonia (4) Intracranial hemorrhage (5) Abnormal LFTs (6) Alcohol abuse (7) Chronic hepatitis C (8) Cocaine abuse 9) thrombocytopenia plan: pt s/p craniotomy for intrapranchymal hemorrhage. pt exubated 03/12 is on dexmedetomidine. pt has a ng tube for tube feeding. platelets are stable today. Was suppose to meet daughter today but she cancelled. pt had fever blood cx and urine done and started on abx. 03/16 per nurse pt more awake today. continue tube feeding. Speech to evaluate pt. she is still on mild sedation. continue abx. so far cx negative Review of Systems - Review of Systems Other: unable to obtain - Medications/Allergies Allergies/Adverse Reactions: Allergies Allergy/AdvReac Type Severity Reaction Status Date / Time No Known Drug Allergies Allergy Verified 03/09/18 17:54 Medications: Current Medications Acetaminophen (Tylenol Elixir) 650 mg PO 0300,0900,1500,2100 [facility] Last Admin: 03/16/18 09:24 Dose: 650 mg Albuterol/Ipratropium (Duoneb) 3 ml NEB [id number] [facility] Last Admin: 03/16/18 14:38 Dose: 3 ml Carvedilol (Coreg) 6.25 mg PO BID-WM [facility] Last Admin: 03/16/18 09:13 Dose: Not Given Clonidine (Catapres) 0.1 mg PO Q4H PRN PRN Reason: Systolic BP > 160 Last Admin: 03/12/18 22:13 Dose: 0.1 mg Cyanocobalamin (Vitamin B-12) 1,000 mcg PO DAILY [facility] Last Admin: 03/16/18 09:25 Dose: 1,000 mcg Dextrose/Water (Dextrose 50%) 25 gm SLOW IVP PRN PRN PRN Reason: Hypoglycemia Docusate Sodium (Colace) 100 mg PO BIDPRN PRN PRN Reason: Constipation Last Admin: 03/10/18 08:40 Dose: 100 mg Famotidine (Pepcid) 20 mg PO BID [facility] Last Admin: 03/16/18 09:25 Dose: 20 mg Folic Acid (Folvite) 1 mg PO DAILY [facility] Last Admin: 03/16/18 09:25 Dose: 1 mg Glucagon (Glucagon) 1 mg IM PRN PRN PRN Reason: Hypoglycemia Hydralazine HCl (Apresoline) 20 mg SLOW IVP Q15MIN PRN PRN Reason: Sbp Greater Than 140 Last Admin: 03/16/18 01:22 Dose: 20 mg Nicardipine HCl 25 mg/ Sodium (Chloride) 250 mls @ 0 mls/hr IVPB INF PRN; Protocol; Titrate PRN Reason: TO KEEP SBP < 150 mmHg Levetiracetam 500 mg/ Device 100 mls @ 200 mls/hr IVPB BID [facility] Last Admin: 03/16/18 09:25 Dose: 100 mls Dexmedetomidine HCl 200 mcg/ (Sodium Chloride) 50 mls @ 0 mls/hr IVPB INF [facility]; Titrate PRN Reason: Protocol Last Admin: 03/16/18 05:01 Dose: 50 mls Sodium Chloride (Normal Saline 0.9%) 1,000 mls @ 0 mls/hr IV .Q0M [facility] PRN Reason: KVO Last Admin: 03/14/18 17:24 Dose: 1,000 mls Cefazolin Sodium 1 gm/ Syringe (2.5 ml/ Sterile Water) 10 mls @ 120 mls/hr SLOW IVP Q8HR [facility] Last Admin: 03/16/18 05:36 Dose: 10 mls Piperacillin Sod/Tazobactam (Sod 3.375 gm/ Sodium Chloride) 100 mls @ 200 mls/ hr IVPB 0300,0900,1500,2100 [facility] Stop: 03/22/18 09:01 Last Admin: 03/16/18 09:24 Dose: 100 mls Dextrose/Water (D5w) 1,000 mls @ 0 mls/hr IV .Q0M PRN; As Directed PRN Reason: Hypoglycemia Insulin Detemir 5 units/ (Miscellaneous Medication) 0.05 mls @ 0 mls/hr SC BID [facility] Last Admin: 03/16/18 09:27 Dose: 0.05 mls Insulin Human Regular (Humulin R) 0 units SC .MODERATE SLIDING SC PRN PRN Reason: Moderate Correctional Scale Last Admin: 03/16/18 13:23 Dose: 6 unit Iron/Minerals/Multivitamins (Theragran M) 1 tab PO DAILY [facility] Last Admin: 03/16/18 09:25 Dose: 1 tab Labetalol HCl (Normodyne) 20 mg SLOW IVP Q15MIN PRN PRN Reason: Sbp Greater Than 140 Last Admin: 03/11/18 02:38 Dose: 20 mg Lactulose (Lactulose) 20 gm PO DAILY [facility] Last Admin: 03/16/18 09:24 Dose: 20 gm Magnesium Hydroxide (Milk Of Magnesium) 30 ml PO DAILYPRN PRN PRN Reason: Constipation Mineral Oil/White Petrolatum (Lacri-Lube Ointment) 0 gm EA EYE PRN PRN PRN Reason: Dry Eyes Ondansetron HCl (Zofran) 4 mg IVP Q6H PRN PRN Reason: Nausea/Vomiting Ondansetron HCl (Zofran Odt) 4 mg SL Q6H PRN PRN Reason: Nausea/Vomiting Last Admin: 03/09/18 20:33 Dose: 4 mg Senna/Docusate Sodium (Senokot S) 1 tab PO BID [facility] Last Admin: 03/16/18 09:25 Dose: 1 tab Sodium Chloride (Flush - Normal Saline) 10 ml IVF PRN PRN PRN Reason: Saline Flush Last Admin: 03/13/18 14:47 Dose: 10 ml Thiamine HCl (Thiamine) 100 mg PO DAILY [facility] Last Admin: 03/16/18 09:25 Dose: 100 mg
--- NOTE | 2018-03-16 16:32 | PRG ---
DATE OF SERVICE: 03/16/2018 This is Nii Plummer PA-C, dictating for Dr. Parveen Maya. SUBJECTIVE: This is an inpatient progress note. Ms. Arrieta is now postoperative day number 6, having undergone a right parietal craniotomy for evacuation of intracranial hemorrhage and EVD placement. Her EVD was removed yesterday and the patient tolerated this well. Today, she is improving neurologi marquita. She opens her eyes to command. She wiggles her fingers and toes to command on the right. Sh e will withdrawal into the left upper and lower extremities. I am very pleased with her progress misa rologically. Her sodium currently is 143, improved from 141 yesterday and her platelets are decrease d from 95,000 to 73,000 today. She has remained afebrile for the last several hours, although she nuñez s been started on antibiotics by the hospitalist. Please continue with the Keppra. We will continue to monitor the patient's neurologic status, although it is certainly encouraging that she is now fol lowing commands. Please call with questions.
[2018-03-17] MEDS: Piperacillin/Tazobactam 3.375 GM in Sodium Chloride 0.9% 100 ML IVPB SCH ×4 (03:00→21:53)
[2018-03-17] MEDS: Acetaminophen 650 MG/20.3 ML UDCUP PO SCH ×3 (03:00→14:57)
[2018-03-17 04:55] LABS: #Eosinphils 0.1 thou/uL (0.0-0.7); #Lymphocytes 2.9 thou/uL (1.20-3.40); #Monocytes 0.8 thou/uL (0.11-0.59); #Neutrophils 2.9 thou/uL (1.40-6.50); %Basophils 0.6 % (0.0-1.0); %Eosinophils 2.1 % (0.0-10.0); %Lymphocytes 42.3 % (21.0-51.0); %Monocytes 11.5 % (0.0-10.0); %Neutrophils 43.4 % (42.0-75.0); Hemoglobin 10.7 g/dL (12.0-16.0); Mean Corpuscular HGB CONC 33.2 g/dL (32.0-36.0); Mean Corpuscular Hemoglobin 35.5 pg (27.0-31.0); Platelet Count 79 thou/uL (130-400); RBC Distribution Width 12.4 % (11.5-14.5); Red Blood Cell (RBC) Count 3.02 mill/uL (4.20-5.40); White Blood Cell (WBC) Count 6.8 thou/uL (4.8-10.8)
[2018-03-17 05:03] LABS: Anion Gap 10 mmol/L (10-20); BUN (Urea Nitrogen) 17 mg/dL (9.8-20.1); Calc. Creatinine Clearance 122 mL/min (70-130); Calcium 8.4 mg/dL (7.8-10.44); Carbon Dioxide 22 mmol/L (22-29); Chloride 111 mmol/L (98-107); Estimated GFR-MDRD Greater than 90; Glucose 102 mg/dL (70-105); Potassium 3.6 mmol/L (3.5-5.1); Sodium 139 mmol/L (136-145)
[2018-03-17] MEDS: CEFAZOLIN 1 GM, Syringe 2.5 ML in Sterile Water 7.5 ML SLOW IVP SCH ×3 (06:00→21:53)
--- NOTE | 2018-03-17 08:47 | PRG ---
DATE OF SERVICE: 03/17/2018 SUBJECTIVE: This morning, remains encephalopathic in the ICU. OBJECTIVE: VITAL SIGNS: Sats are 95% on room air, respiration is 22, pulse 56, blood pressure 167/73. GENERAL: Neurologically, she is awake and responsive. LUNGS: Extensive rhonchi bilaterally. CARDIAC: Normal S1, S2, no gallops. ABDOMEN: Soft. NEUROLOGIC: Unable to move her left side. LABORATORY DATA: White count 10,000, H&H is 10 and 32, platelet count is low at 79. Electrolytes ar e normal. IMPRESSION: 1. Status post right parietal craniotomy, evacuation of intracranial hemorrhage. 2. Encephalopathy. 3. Left-sided paralysis. 4. Thrombocytopenia. 5. Probably aspiration pneumonia. PLAN: Continue PT, antibiotics, nebulizer treatments, and supportive care. Eventually placement. We will follow.
[2018-03-17] MEDS: Multivitamin W/ Minerals 1 TAB PO SCH (08:54)
[2018-03-17] MEDS: Folic Acid 1 MG TAB PO SCH (08:54)
[2018-03-17] MEDS: Carvedilol 6.25 MG TAB PO SCH ×2 (08:54→15:47)
[2018-03-17] MEDS: Famotidine 20 MG TAB PO SCH ×2 (08:55→21:57)
[2018-03-17] MEDS: Cyanocobalamin (Vitamin B-12) 1,000 MCG TAB PO SCH (08:55)
[2018-03-17] MEDS: Senokot S 8.6-50 MG TAB PO SCH ×2 (08:55→21:55)
[2018-03-17] MEDS: Insulin Detemir 100 UNITS/ML 5 UNITS in Pre-Filled Syringe 1 EACH SC SCH ×2 (09:00→22:06)
[2018-03-17] MEDS: hydrALAZINE 20 MG/ML VIAL SLOW IVP PRN ×2 (10:37→15:29)
--- NOTE | 2018-03-17 14:19 | PDOC.PN ---
- Subjective Encounter Start Date: 03/17/18 Encounter Start Time: 11:00 Subjective: pt up in bed oriented to person only - Objective Vital Signs & Weight: Vital Signs (12 hours) Temp Pulse Pulse Pulse Resp BP BP 03/17/18 12:52 75 20 03/17/18 11:00 98.7 F 03/17/18 10:37 167/83 H 03/17/18 08:54 115/63 03/17/18 08:50 98 90 160/73 H 03/17/18 08:00 98.7 F 03/17/18 07:24 03/17/18 07:22 56 L 22 H 03/17/18 02:51 54 L 18 BP Pulse Ox 03/17/18 12:52 98 03/17/18 11:00 03/17/18 10:37 03/17/18 08:54 03/17/18 08:50 166/72 H 03/17/18 08:00 03/17/18 07:24 99 03/17/18 07:22 99 03/17/18 02:51 96 Weight Admit Weight 138 lb 10.732 oz Weight 147 lb 0.773 oz Most Recent Monitor Data Heart Rate from ECG 74 NIBP 158/63 NIBP BP-Mean 117 Respiration from ECG 24 SpO2 95 I&O: 03/16/18 03/17/18 03/18/18 06:59 06:59 06:59 Intake Total 2517 2233.7 Output Total 2465 1885 605 Balance 52 348.7 -605 Result Diagrams: 03/17/18 04:41 03/17/18 04:41 Additional Labs: Accuchecks 03/17/18 03/17/18 03/16/18 11:45 00:53 17:40 POC Glucose 124 H 117 H 206 H Phys Exam - Physical Examination right cranium kam intact Neck: no nodes, no JVD, supple, full ROM Respiratory: no wheezing, no rales, no rhonchi, wheezing present, clear to auscultation bilateral Cardiovascular: RRR, no significant murmur, no rub, gallop, irregular Gastrointestinal: soft, non-tender, no distention, positive bowel sounds Musculoskeletal: no edema, pulses present, edema present pt has left side neglect Dx/Plan - Plan 1) Status post craniotomy (2) Respiratory insufficiency/failure (3) health care pneumonia (4) Intracranial hemorrhage (5) Abnormal LFTs (6) Alcohol abuse (7) Chronic hepatitis C (8) Cocaine abuse 9) thrombocytopenia plan: pt s/p craniotomy for intrapranchymal hemorrhage. pt exubated 03/12 is on dexmedetomidine. pt has a ng tube for tube feeding. platelets are stable today. Was suppose to meet daughter today but she cancelled. pt had fever blood cx and urine done and started on abx. 03/16 per nurse pt more awake today. continue tube feeding. Speech to evaluate pt. she is still on mild sedation. continue abx. so far cx negative. 03/17 pt off sedation, she is eating. continue abx ( zosyn) for now. pt will need inpatient rehab. PT consulted. * . Review of Systems - Review of Systems Other: unable to obtain - Medications/Allergies Allergies/Adverse Reactions: Allergies Allergy/AdvReac Type Severity Reaction Status Date / Time No Known Drug Allergies Allergy Verified 03/09/18 17:54 Medications: Current Medications Acetaminophen (Tylenol Elixir) 650 mg PO 0300,0900,1500,2100 [facility] Last Admin: 03/17/18 08:55 Dose: 650 mg Albuterol/Ipratropium (Duoneb) 3 ml NEB [id number] [facility] Last Admin: 03/17/18 12:52 Dose: 3 ml Carvedilol (Coreg) 6.25 mg PO BID-WM [facility] Last Admin: 03/17/18 08:54 Dose: 6.25 mg Clonidine (Catapres) 0.1 mg PO Q4H PRN PRN Reason: Systolic BP > 160 Last Admin: 03/12/18 22:13 Dose: 0.1 mg Cyanocobalamin (Vitamin B-12) 1,000 mcg PO DAILY [facility] Last Admin: 03/17/18 08:55 Dose: 1,000 mcg Dextrose/Water (Dextrose 50%) 25 gm SLOW IVP PRN PRN PRN Reason: Hypoglycemia Docusate Sodium (Colace) 100 mg PO BIDPRN PRN PRN Reason: Constipation Last Admin: 03/10/18 08:40 Dose: 100 mg Famotidine (Pepcid) 20 mg PO BID [facility] Last Admin: 03/17/18 08:55 Dose: 20 mg Folic Acid (Folvite) 1 mg PO DAILY [facility] Last Admin: 03/17/18 08:54 Dose: 1 mg Glucagon (Glucagon) 1 mg IM PRN PRN PRN Reason: Hypoglycemia Hydralazine HCl (Apresoline) 20 mg SLOW IVP Q15MIN PRN PRN Reason: Sbp Greater Than 140 Last Admin: 03/17/18 10:37 Dose: 20 mg Nicardipine HCl 25 mg/ Sodium (Chloride) 250 mls @ 0 mls/hr IVPB INF PRN; Protocol; Titrate PRN Reason: TO KEEP SBP < 150 mmHg Levetiracetam 500 mg/ Device 100 mls @ 200 mls/hr IVPB BID [facility] Last Admin: 03/17/18 08:55 Dose: 100 mls Dexmedetomidine HCl 200 mcg/ (Sodium Chloride) 50 mls @ 0 mls/hr IVPB INF [facility]; Titrate PRN Reason: Protocol Last Admin: 03/17/18 03:10 Dose: 50 mls Sodium Chloride (Normal Saline 0.9%) 1,000 mls @ 0 mls/hr IV .Q0M [facility] PRN Reason: KVO Last Admin: 03/14/18 17:24 Dose: 1,000 mls Cefazolin Sodium 1 gm/ Syringe (2.5 ml/ Sterile Water) 10 mls @ 120 mls/hr SLOW IVP Q8HR [facility] Last Admin: 03/17/18 06:00 Dose: 10 mls Piperacillin Sod/Tazobactam (Sod 3.375 gm/ Sodium Chloride) 100 mls @ 200 mls/ hr IVPB 0300,0900,1500,2100 [facility] Stop: 03/22/18 09:01 Last Admin: 03/17/18 08:55 Dose: 100 mls Dextrose/Water (D5w) 1,000 mls @ 0 mls/hr IV .Q0M PRN; As Directed PRN Reason: Hypoglycemia Insulin Detemir 5 units/ (Miscellaneous Medication) 0.05 mls @ 0 mls/hr SC BID [facility] Last Admin: 03/17/18 09:00 Dose: 0.05 mls Insulin Human Regular (Humulin R) 0 units SC .MODERATE SLIDING SC PRN PRN Reason: Moderate Correctional Scale Last Admin: 03/16/18 17:40 Dose: 4 unit Iron/Minerals/Multivitamins (Theragran M) 1 tab PO DAILY [facility] Last Admin: 03/17/18 08:54 Dose: 1 tab Labetalol HCl (Normodyne) 20 mg SLOW IVP Q15MIN PRN PRN Reason: Sbp Greater Than 140 Last Admin: 03/11/18 02:38 Dose: 20 mg Lactulose (Lactulose) 20 gm PO DAILY [facility] Last Admin: 03/17/18 08:56 Dose: Not Given Magnesium Hydroxide (Milk Of Magnesium) 30 ml PO DAILYPRN PRN PRN Reason: Constipation Mineral Oil/White Petrolatum (Lacri-Lube Ointment) 0 gm EA EYE PRN PRN PRN Reason: Dry Eyes Ondansetron HCl (Zofran) 4 mg IVP Q6H PRN PRN Reason: Nausea/Vomiting Ondansetron HCl (Zofran Odt) 4 mg SL Q6H PRN PRN Reason: Nausea/Vomiting Last Admin: 03/09/18 20:33 Dose: 4 mg Senna/Docusate Sodium (Senokot S) 1 tab PO BID [facility] Last Admin: 03/17/18 08:55 Dose: 1 tab Sodium Chloride (Flush - Normal Saline) 10 ml IVF PRN PRN PRN Reason: Saline Flush Last Admin: 03/13/18 14:47 Dose: 10 ml Thiamine HCl (Thiamine) 100 mg PO DAILY [facility] Last Admin: 03/17/18 08:55 Dose: 100 mg
--- NOTE | 2018-03-17 14:26 | ULT ---
BILATERAL LOWER EXTREMITY VENOUS DUPLEX EXAM: Date: 03/17/18 Deep veins of both lower extremities evaluated with ultrasound, color Doppler, spectral analysis, and compression. INDICATION: Impaired mobility. Lower extremity pain and edema. FINDINGS: Deep veins of both lower extremities show normal blood flow and compression. No evidence of deep veno us thrombosis. IMPRESSION: No evidence of lower extremity deep venous thrombosis. POS: JOCELYN
--- NOTE | 2018-03-17 14:45 | PRG ---
DATE OF SERVICE: 03/17/2018 Ms. Arrieta is hospital day #9 following large right-sided frontoparietal hemorrhage with intraventricu lar extension. She is alert and somewhat disinhibited. She has left-sided neglect, but does follow commands on the right side. She is quite weak on the left.
[2018-03-17] MEDS: cloNIDine 0.1 MG TAB PO PRN (14:57)
[2018-03-17 15:05] LABS: ALT (SGPT) 53 U/L (8-55); AST (SGOT) 52 U/L (5-34); Albumin 2.8 g/dL (3.5-5.0); Alkaline Phosphatase 109 U/L (40-150); Bilirubin, Total 1.8 mg/dL (0.2-1.2); Protein, Total 7.2 g/dL (6.0-8.3)
[2018-03-17] MEDS ORDERED: Ibuprofen 200 MG TAB PO PRN (15:36)
[2018-03-17] MEDS: traMADol HCl 50 MG TAB PO PRN ×2 (15:47→21:55)
[2018-03-17] MEDS: Labetalol HCl 100 MG/20 ML VIAL SLOW IVP PRN ×2 (16:23→22:33)
[2018-03-17] MEDS: Ondansetron ODT 4 MG TAB SL PRN (21:56)
[2018-03-17] MEDS: Insulin Regular 300 UNITS/3 ML VIAL SC PRN (22:08)
[2018-03-18] MEDS ORDERED: Melatonin 3 MG TAB PO SCH ×2 (00:15→21:00)
[2018-03-18] MEDS: Acetaminophen 325 MG TAB PO PRN (00:22)
[2018-03-18] MEDS: Labetalol HCl 100 MG/20 ML VIAL SLOW IVP PRN ×2 (00:38→01:06)
[2018-03-18] MEDS ORDERED: Lorazepam 2 MG/ML VIAL SLOW IVP SCH (01:45)
[2018-03-18] MEDS: cloNIDine 0.1 MG TAB PO PRN (02:05)
[2018-03-18] MEDS: Piperacillin/Tazobactam 3.375 GM in Sodium Chloride 0.9% 100 ML IVPB SCH ×4 (03:54→22:32)
[2018-03-18 06:00] LABS: #Basophils 0.1 thou/uL (0.0-0.2); #Eosinphils 0.1 thou/uL (0.0-0.7); #Lymphocytes 3.7 thou/uL (1.20-3.40); #Monocytes 1.2 thou/uL (0.11-0.59); #Neutrophils 6.2 thou/uL (1.40-6.50); %Basophils 0.6 % (0.0-1.0); %Eosinophils 0.7 % (0.0-10.0); %Lymphocytes 32.7 % (21.0-51.0); %Monocytes 10.7 % (0.0-10.0); %Neutrophils 55.4 % (42.0-75.0); Hemoglobin 11.5 g/dL (12.0-16.0); Mean Corpuscular HGB CONC 33.9 g/dL (32.0-36.0); Mean Corpuscular Hemoglobin 36.1 pg (27.0-31.0); Mean Platelet Volume 9.5 fL (7.4-10.4); Platelet Count 90 thou/uL (130-400); RBC Distribution Width 12.3 % (11.5-14.5); Red Blood Cell (RBC) Count 3.19 mill/uL (4.20-5.40); White Blood Cell (WBC) Count 11.2 thou/uL (4.8-10.8)
[2018-03-18 06:08] LABS: Anion Gap 10 mmol/L (10-20); BUN (Urea Nitrogen) 17 mg/dL (9.8-20.1); Calc. Creatinine Clearance 122 mL/min (70-130); Calcium 8.4 mg/dL (7.8-10.44); Carbon Dioxide 21 mmol/L (22-29); Chloride 108 mmol/L (98-107); Estimated GFR-MDRD Greater than 90; Glucose 121 mg/dL (70-105); Potassium 3.5 mmol/L (3.5-5.1); Sodium 135 mmol/L (136-145)
[2018-03-18] MEDS: CEFAZOLIN 1 GM, Syringe 2.5 ML in Sterile Water 7.5 ML SLOW IVP SCH ×3 (06:34→22:34)
[2018-03-18] MEDS: Carvedilol 6.25 MG TAB PO SCH ×2 (09:14→14:58)
[2018-03-18] MEDS: Cyanocobalamin (Vitamin B-12) 1,000 MCG TAB PO SCH (09:14)
[2018-03-18] MEDS: Famotidine 20 MG TAB PO SCH ×2 (09:14→22:33)
[2018-03-18] MEDS: Folic Acid 1 MG TAB PO SCH (09:15)
[2018-03-18] MEDS: Multivitamin W/ Minerals 1 TAB PO SCH (09:16)
[2018-03-18] MEDS: Senokot S 8.6-50 MG TAB PO SCH ×2 (09:17→22:34)
[2018-03-18] MEDS: Insulin Detemir 100 UNITS/ML 5 UNITS in Pre-Filled Syringe 1 EACH SC SCH ×2 (09:19→22:34)
--- NOTE | 2018-03-18 11:23 | PRG ---
DATE OF SERVICE: 03/18/2018 SUBJECTIVE: Ms. Arrieta is hospital day #10 for right frontoparietal hemorrhage with neurological decl ine. She continues to demonstrate slow neurological improvement. She even followed commands weakly in the left arm and it is worse yesterday, but she has profound left-sided neglect, although she does wiggle her left toes. She follows commands on the right side as well. Her wound is healing satisfa ctorily. The biggest issue now is preparation toward rehab.
--- NOTE | 2018-03-18 13:12 | PDOC.PN ---
- Subjective Encounter Start Date: 03/18/18 Encounter Start Time: 13:10 Subjective: remains somnolent this morning after receiving Ativan last night -: able to follow simple commands when woken up -: oriented to self only - Objective MAR Reviewed: Yes Vital Signs & Weight: Vital Signs (12 hours) Temp Pulse Resp BP BP Pulse Ox 03/18/18 13:00 127/67 03/18/18 11:41 98.2 F 54 L 16 127/67 91 L 03/18/18 09:14 113/63 03/18/18 09:00 113/63 03/18/18 08:55 68 16 92 L 03/18/18 08:06 98.4 F 53 L 16 113/63 91 L 03/18/18 08:00 98.4 F 68 16 91 L 03/18/18 03:55 98.2 F 58 L 14 134/62 93 L 03/18/18 02:05 181/90 H Weight Admit Weight 138 lb 10.732 oz Weight 147 lb 1.6 oz Most Recent Monitor Data Heart Rate from ECG 72 NIBP 138/59 NIBP BP-Mean 89 Respiration from ECG 21 SpO2 95 I&O: 03/17/18 03/18/18 03/19/18 06:59 06:59 06:59 Intake Total 2233.7 1272 Output Total 1885 2805 Balance 348.7 -1533 Result Diagrams: 03/18/18 05:37 03/18/18 05:37 Additional Labs: Accuchecks 03/18/18 03/18/18 03/17/18 10:38 06:39 22:05 POC Glucose 107 106 171 H 03/17/18 03/17/18 17:23 15:16 POC Glucose 170 H 146 H Microbiology 03/15/18 09:53 Urine powell catheter Urine Culture - Final NO GROWTH AT 48 HOURS 03/15/18 08:44 Venous blood - Right Hand Blood Culture - Preliminary NO GROWTH AT 48 HOURS 03/15/18 08:39 Venous blood - Left Hand Blood Culture - Preliminary NO GROWTH AT 48 HOURS Laboratory Tests 03/09/18 03/09/18 03/10/18 09:58 13:55 03:24 Total Bilirubin 1.5 H AST 62 H ALT 77 H Alkaline Phosphatase 166 H HCV RNA (PCR) log10 5.738 HCV RNA Ultraquant [id number] HIV 1&2 Antigen & Ab Non-Reactive 03/11/18 03/17/18 05:15 14:36 Total Bilirubin 1.1 1.8 H AST 43 H 52 H ALT 56 H 53 Alkaline Phosphatase 121 109 HCV RNA (PCR) log10 HCV RNA Ultraquant HIV 1&2 Antigen & Ab Phys Exam - Physical Examination Constitutional: NAD HEENT: PERRLA, moist MMs, sclera anicteric, oral pharynx no lesions Neck: no JVD Respiratory: no wheezing, no rales, no rhonchi, clear to auscultation bilateral Cardiovascular: RRR, no significant murmur Gastrointestinal: soft, non-tender, no distention, positive bowel sounds Musculoskeletal: no edema, pulses present left sided neglect and left paresis. Psychiatric: normal affect Skin: no rash Dx/Plan (1) Intracranial hemorrhage Code(s): I62.9 - NONTRAUMATIC INTRACRANIAL HEMORRHAGE, UNSPECIFIED Status: Acute (2) Cerebral edema Code(s): G93.6 - CEREBRAL EDEMA Status: Acute (3) Midline shift of brain due to hematoma Code(s): G93.9 - DISORDER OF BRAIN, UNSPECIFIED Status: Acute (4) Status post craniotomy Status: Acute (5) Abnormal LFTs Code(s): R94.5 - ABNORMAL RESULTS OF LIVER FUNCTION STUDIES Status: Chronic Comment: trending down.monitor. mervin due to Chr Hep C and ETOH liver disease (6) Alcohol abuse Code(s): F10.10 - ALCOHOL ABUSE, UNCOMPLICATED Status: Chronic (7) Chronic hepatitis C Code(s): B18.2 - CHRONIC VIRAL HEPATITIS C Status: Chronic (8) Cocaine abuse Code(s): F14.10 - COCAINE ABUSE, UNCOMPLICATED Status: Chronic (9) Macrocytosis Code(s): D75.89 - OTHER SPECIFIED DISEASES OF BLOOD AND BLOOD-FORMING ORGANS Status: Chronic (10) Thrombocytopenia Code(s): D69.6 - THROMBOCYTOPENIA, UNSPECIFIED Status: Chronic Comment: Improved after transfusion recently.Dut to Chronic liver disease mervin.Monitro (11) Respiratory insufficiency/failure Code(s): R06.89 - OTHER ABNORMALITIES OF BREATHING Status: Resolved (12) Dysphagia as late effect of cerebrovascular accident (CVA) Code(s): I69.391 - DYSPHAGIA FOLLOWING CEREBRAL INFARCTION Status: Acute (13) Aspiration pneumonia Code(s): J69.0 - PNEUMONITIS DUE TO INHALATION OF FOOD AND VOMIT Status: Suspected Qualifiers: Aspiration pneumonia type: due to gastric secretions - Plan PT/OT, speech therapy, DVT proph w/SCDs pt very somnolent.discussed w Speech-will make NPO for now.Start IVF -: cont supportive care.Out of the ICU yetserday & stable -: cont empiric ABx for possible asp PNA.following Cx results-ve so far -: BP controlled w Coreg.monitor.check am labs -: IV keppra for seizure prophylaxis from hemorrhagic stroke * . Review of Systems - Review of Systems Other: can not be obtained due to ICH realted encephalopathy and somnolence from meds - Medications/Allergies Allergies/Adverse Reactions: Allergies Allergy/AdvReac Type Severity Reaction Status Date / Time No Known Drug Allergies Allergy Verified 03/09/18 17:54 Medications: Current Medications Acetaminophen (Tylenol) 650 mg PO Q6H PRN PRN Reason: Pain Last Admin: 03/18/18 00:22 Dose: 650 mg Albuterol/Ipratropium (Duoneb) 3 ml NEB [id number] [facility] Last Admin: 03/18/18 12:16 Dose: Not Given Carvedilol (Coreg) 6.25 mg PO BID-WM [facility] Last Admin: 03/18/18 09:14 Dose: 6.25 mg Clonidine (Catapres) 0.1 mg PO Q4H PRN PRN Reason: Systolic BP > 160 Last Admin: 03/18/18 02:05 Dose: 0.1 mg Cyanocobalamin (Vitamin B-12) 1,000 mcg PO DAILY [facility] Last Admin: 03/18/18 09:14 Dose: 1,000 mcg Dextrose/Water (Dextrose 50%) 25 gm SLOW IVP PRN PRN PRN Reason: Hypoglycemia Docusate Sodium (Colace) 100 mg PO BIDPRN PRN PRN Reason: Constipation Last Admin: 03/10/18 08:40 Dose: 100 mg Famotidine (Pepcid) 20 mg PO BID [facility] Last Admin: 03/18/18 09:14 Dose: 20 mg Folic Acid (Folvite) 1 mg PO DAILY [facility] Last Admin: 03/18/18 09:15 Dose: 1 mg Glucagon (Glucagon) 1 mg IM PRN PRN PRN Reason: Hypoglycemia Hydralazine HCl (Apresoline) 20 mg SLOW IVP Q15MIN PRN PRN Reason: Sbp Greater Than 140 Last Admin: 03/17/18 15:29 Dose: 20 mg Nicardipine HCl 25 mg/ Sodium (Chloride) 250 mls @ 0 mls/hr IVPB INF PRN; Protocol; Titrate PRN Reason: TO KEEP SBP < 150 mmHg Levetiracetam 500 mg/ Device 100 mls @ 200 mls/hr IVPB BID [facility] Last Admin: 03/18/18 09:16 Dose: 100 mls Dexmedetomidine HCl 200 mcg/ (Sodium Chloride) 50 mls @ 0 mls/hr IVPB INF [facility]; Titrate PRN Reason: Protocol Last Admin: 03/17/18 03:10 Dose: 50 mls Sodium Chloride (Normal Saline 0.9%) 1,000 mls @ 0 mls/hr IV .Q0M [facility] PRN Reason: KVO Last Admin: 03/14/18 17:24 Dose: 1,000 mls Cefazolin Sodium 1 gm/ Syringe (2.5 ml/ Sterile Water) 10 mls @ 120 mls/hr SLOW IVP Q8HR [facility] Last Admin: 03/18/18 06:34 Dose: 10 mls Piperacillin Sod/Tazobactam (Sod 3.375 gm/ Sodium Chloride) 100 mls @ 200 mls/ hr IVPB 0300,0900,1500,2100 [facility] Stop: 03/22/18 09:01 Last Admin: 03/18/18 09:17 Dose: 100 mls Dextrose/Water (D5w) 1,000 mls @ 0 mls/hr IV .Q0M PRN; As Directed PRN Reason: Hypoglycemia Insulin Detemir 5 units/ (Miscellaneous Medication) 0.05 mls @ 0 mls/hr SC BID [facility] Last Admin: 03/18/18 09:19 Dose: 0.05 mls Sodium Chloride (Normal Saline 0.9%) 1,000 mls @ 75 mls/hr IV .[id number] [facility] Ibuprofen (Motrin) 400 mg PO Q8H PRN PRN Reason: Pain Last Admin: 03/17/18 17:55 Dose: 400 mg Insulin Human Regular (Humulin R) 0 units SC .MODERATE SLIDING SC PRN PRN Reason: Moderate Correctional Scale Last Admin: 03/17/18 22:08 Dose: 2 unit Iron/Minerals/Multivitamins (Theragran M) 1 tab PO DAILY [facility] Last Admin: 03/18/18 09:16 Dose: 1 tab Labetalol HCl (Normodyne) 20 mg SLOW IVP Q15MIN PRN PRN Reason: Sbp Greater Than 140 Last Admin: 03/18/18 01:06 Dose: 20 mg Lactulose (Lactulose) 20 gm PO DAILY [facility] Last Admin: 03/18/18 09:16 Dose: 20 gm Magnesium Hydroxide (Milk Of Magnesium) 30 ml PO DAILYPRN PRN PRN Reason: Constipation Melatonin (Melatonin) 3 mg PO [facility] Mineral Oil/White Petrolatum (Lacri-Lube Ointment) 0 gm EA EYE PRN PRN PRN Reason: Dry Eyes Ondansetron HCl (Zofran) 4 mg IVP Q6H PRN PRN Reason: Nausea/Vomiting Ondansetron HCl (Zofran Odt) 4 mg SL Q6H PRN PRN Reason: Nausea/Vomiting Last Admin: 03/17/18 21:56 Dose: 4 mg Senna/Docusate Sodium (Senokot S) 1 tab PO BID [facility] Last Admin: 03/18/18 09:17 Dose: 1 tab Sodium Chloride (Flush - Normal Saline) 10 ml IVF PRN PRN PRN Reason: Saline Flush Last Admin: 03/18/18 01:43 Dose: 10 ml Thiamine HCl (Thiamine) 100 mg PO DAILY [facility] Last Admin: 03/18/18 09:17 Dose: 100 mg Tramadol HCl (Ultram) 50 mg PO Q6H PRN PRN Reason: Pain Last Admin: 03/17/18 21:55 Dose: 50 mg
[2018-03-18] MEDS: Sodium Chloride 0.9% 1,000 ML IV SCH (13:37)
--- NOTE | 2018-03-18 15:06 | PRG ---
DATE OF SERVICE: 03/18/2018 SUBJECTIVE: This morning, she is awake, alert, responsive. OBJECTIVE: VITAL SIGNS: Sats are 91 on room air, blood pressure 120/76, and temperature 98. She is less enceph alopathic. CHEST: Decreased breath sounds, no wheezing. CARDIAC: Normal S1 and S2. No gallops or mass. LABORATORY DATA: White count is 11,000. Otherwise, electrolytes are normal. IMPRESSION: 1. Status post intracerebral hemorrhage, secondary to drug abuse, cocaine. 2. Encephalopathy, respiratory failure. PLAN: Continue PT and supportive care.
[2018-03-18] MEDS: hydrALAZINE 20 MG/ML VIAL SLOW IVP PRN (17:14)
[2018-03-19] MEDS: Piperacillin/Tazobactam 3.375 GM in Sodium Chloride 0.9% 100 ML IVPB SCH ×4 (03:35→22:07)
[2018-03-19] MEDS: Sodium Chloride 0.9% 1,000 ML IV SCH ×2 (03:36→15:20)
[2018-03-19] MEDS: CEFAZOLIN 1 GM, Syringe 2.5 ML in Sterile Water 7.5 ML SLOW IVP SCH ×3 (05:40→23:22)
[2018-03-19 06:07] LABS: #Basophils 0.1 thou/uL (0.0-0.2); #Eosinphils 0.1 thou/uL (0.0-0.7); #Lymphocytes 4.9 thou/uL (1.20-3.40); #Monocytes 1.3 thou/uL (0.11-0.59); #Neutrophils 6.1 thou/uL (1.40-6.50); %Basophils 0.4 % (0.0-1.0); %Eosinophils 0.9 % (0.0-10.0); %Lymphocytes 39.3 % (21.0-51.0); %Monocytes 10.6 % (0.0-10.0); %Neutrophils 48.7 % (42.0-75.0); Hemoglobin 11.3 g/dL (12.0-16.0); Mean Platelet Volume 9.7 fL (7.4-10.4); Platelet Count 98 thou/uL (130-400); RBC Distribution Width 12.6 % (11.5-14.5); Red Blood Cell (RBC) Count 3.22 mill/uL (4.20-5.40); White Blood Cell (WBC) Count 12.4 thou/uL (4.8-10.8)
[2018-03-19 06:10] LABS: Anion Gap 12 mmol/L (10-20); BUN (Urea Nitrogen) 14 mg/dL (9.8-20.1); Calc. Creatinine Clearance 124 mL/min (70-130); Carbon Dioxide 21 mmol/L (22-29); Chloride 106 mmol/L (98-107); Estimated GFR-MDRD Greater than 90; Glucose 78 mg/dL (70-105); Potassium 3.5 mmol/L (3.5-5.1); Sodium 135 mmol/L (136-145)
[2018-03-19] MEDS: hydrALAZINE 20 MG/ML VIAL SLOW IVP PRN ×2 (06:30→23:53)
--- NOTE | 2018-03-19 08:13 | PDOC.PN ---
- Subjective Encounter Start Date: 03/19/18 Encounter Start Time: 08:12 Subjective: agitation last night.says that she is tired today -: cleared by [employer] for regular diet -: good urine output overnight - Objective MAR Reviewed: Yes Vital Signs & Weight: Vital Signs (12 hours) Temp Pulse Resp BP BP Pulse Ox 03/19/18 06:46 95 03/19/18 06:41 74 12 03/19/18 06:30 73 174/76 H 03/19/18 04:00 99.3 F 73 18 174/76 H 93 L 03/19/18 02:40 83 20 96 03/19/18 00:28 98.4 F 80 18 189/95 H 93 L 03/18/18 23:01 78 16 94 L Weight Admit Weight 138 lb 10.732 oz Weight 148 lb Most Recent Monitor Data Heart Rate from ECG 72 NIBP 138/59 NIBP BP-Mean 89 Respiration from ECG 21 SpO2 95 I&O: 03/18/18 03/19/18 03/20/18 06:59 06:59 06:59 Intake Total 1272 957 Output Total 2805 Balance -1533 957 Result Diagrams: 03/19/18 05:30 03/19/18 05:30 Additional Labs: Accuchecks 03/19/18 03/18/18 03/18/18 05:22 21:19 16:38 POC Glucose 92 111 H 105 03/18/18 10:38 POC Glucose 107 Microbiology 03/15/18 09:53 Urine powell catheter Urine Culture - Final NO GROWTH AT 48 HOURS 03/15/18 08:44 Venous blood - Right Hand Blood Culture - Preliminary NO GROWTH AT 48 HOURS 03/15/18 08:39 Venous blood - Left Hand Blood Culture - Preliminary NO GROWTH AT 48 HOURS Phys Exam - Physical Examination Constitutional: NAD HEENT: PERRLA, moist MMs, sclera anicteric, oral pharynx no lesions Neck: no nodes, no JVD, supple, full ROM Respiratory: no wheezing, no rales, no rhonchi, clear to auscultation bilateral Cardiovascular: RRR, no significant murmur, no rub, gallop Gastrointestinal: soft, non-tender, no distention, positive bowel sounds Musculoskeletal: no edema, pulses present left sided neglect and weakness Psychiatric: normal affect Deviation from normal: oriented to self only Dx/Plan (1) Intracranial hemorrhage Code(s): I62.9 - NONTRAUMATIC INTRACRANIAL HEMORRHAGE, UNSPECIFIED Status: Acute Comment: Frequent neuro checks.Stable (2) Cerebral edema Code(s): G93.6 - CEREBRAL EDEMA Status: Acute (3) Midline shift of brain due to hematoma Code(s): G93.9 - DISORDER OF BRAIN, UNSPECIFIED Status: Acute Comment: s/p Craniotomy and evacuation and EVD (4) Status post craniotomy Status: Acute (5) Abnormal LFTs Code(s): R94.5 - ABNORMAL RESULTS OF LIVER FUNCTION STUDIES Status: Chronic Comment: trending down.monitor. mervin due to Chr Hep C and ETOH liver disease (6) Alcohol abuse Code(s): F10.10 - ALCOHOL ABUSE, UNCOMPLICATED Status: Chronic (7) Chronic hepatitis C Code(s): B18.2 - CHRONIC VIRAL HEPATITIS C Status: Chronic (8) Cocaine abuse Code(s): F14.10 - COCAINE ABUSE, UNCOMPLICATED Status: Chronic (9) Macrocytosis Code(s): D75.89 - OTHER SPECIFIED DISEASES OF BLOOD AND BLOOD-FORMING ORGANS Status: Chronic (10) Thrombocytopenia Code(s): D69.6 - THROMBOCYTOPENIA, UNSPECIFIED Status: Chronic Comment: Improved after transfusion recently.Dut to Chronic liver disease mervin.Monitor (11) Respiratory insufficiency/failure Code(s): R06.89 - OTHER ABNORMALITIES OF BREATHING Status: Resolved (12) Dysphagia as late effect of cerebrovascular accident (CVA) Code(s): I69.391 - DYSPHAGIA FOLLOWING CEREBRAL INFARCTION Status: Acute Comment: improved with improved cognition.approved fro regular diet by [employer] (13) Aspiration pneumonia Code(s): J69.0 - PNEUMONITIS DUE TO INHALATION OF FOOD AND VOMIT Status: Suspected Qualifiers: Aspiration pneumonia type: due to gastric secretions Comment: on Zosyn - Plan continue antibiotics, PT/OT, out of bed/ambulate, DVT proph w/SCDs cont supportive care. 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 -: start diet w close monitoring.HD stable. -: all labs reviewed.monitor * . Review of Systems - Review of Systems Constitutional: negative: fever, chills, sweats, weakness, malaise, other Respiratory: negative: Cough, Dry, Shortness of Breath, Hemoptysis, SOB with Excertion, Pleuritic Pain, Sputum, Wheezing Cardiovascular: negative: chest pain, palpitations, orthopnea, paroxysmal nocturnal dyspnea, edema, light headedness, other Gastrointestinal: negative: Nausea, Vomiting, Abdominal Pain, Diarrhea, Constipation, Melena, Hematochezia, Other Musculoskeletal: negative: Neck Pain, Shoulder Pain, Arm Pain, Back Pain, Hand Pain, Leg Pain, Foot Pain, Other Other: limited due to somnolence and stroke affecting cognition - Medications/Allergies Allergies/Adverse Reactions: Allergies Allergy/AdvReac Type Severity Reaction Status Date / Time No Known Drug Allergies Allergy Verified 03/09/18 17:54 Medications: Current Medications Acetaminophen (Tylenol) 650 mg PO Q6H PRN PRN Reason: Pain Last Admin: 03/18/18 00:22 Dose: 650 mg Albuterol/Ipratropium (Duoneb) 3 ml NEB [id number] [facility] Last Admin: 03/19/18 06:41 Dose: 3 ml Carvedilol (Coreg) 6.25 mg PO BID-WM [facility] Last Admin: 03/18/18 14:58 Dose: Not Given Clonidine (Catapres) 0.1 mg PO Q4H PRN PRN Reason: Systolic BP > 160 Last Admin: 03/18/18 02:05 Dose: 0.1 mg Cyanocobalamin (Vitamin B-12) 1,000 mcg PO DAILY [facility] Last Admin: 03/18/18 09:14 Dose: 1,000 mcg Dextrose/Water (Dextrose 50%) 25 gm SLOW IVP PRN PRN PRN Reason: Hypoglycemia Docusate Sodium (Colace) 100 mg PO BIDPRN PRN PRN Reason: Constipation Last Admin: 03/10/18 08:40 Dose: 100 mg Famotidine (Pepcid) 20 mg PO BID [facility] Last Admin: 03/18/18 22:33 Dose: Not Given Folic Acid (Folvite) 1 mg PO DAILY [facility] Last Admin: 03/18/18 09:15 Dose: 1 mg Glucagon (Glucagon) 1 mg IM PRN PRN PRN Reason: Hypoglycemia Hydralazine HCl (Apresoline) 20 mg SLOW IVP Q15MIN PRN PRN Reason: Sbp Greater Than 140 Last Admin: 03/19/18 06:30 Dose: 20 mg Levetiracetam 500 mg/ Device 100 mls @ 200 mls/hr IVPB BID [facility] Last Admin: 03/18/18 22:32 Dose: 100 mls Sodium Chloride (Normal Saline 0.9%) 1,000 mls @ 0 mls/hr IV .Q0M [facility] PRN Reason: KVO Last Admin: 03/14/18 17:24 Dose: 1,000 mls Cefazolin Sodium 1 gm/ Syringe (2.5 ml/ Sterile Water) 10 mls @ 120 mls/hr SLOW IVP Q8HR [facility] Last Admin: 03/19/18 05:40 Dose: 10 mls Piperacillin Sod/Tazobactam (Sod 3.375 gm/ Sodium Chloride) 100 mls @ 200 mls/ hr IVPB 0300,0900,1500,2100 [facility] Stop: 03/22/18 09:01 Last Admin: 03/19/18 03:35 Dose: 100 mls Dextrose/Water (D5w) 1,000 mls @ 0 mls/hr IV .Q0M PRN; As Directed PRN Reason: Hypoglycemia Insulin Detemir 5 units/ (Miscellaneous Medication) 0.05 mls @ 0 mls/hr SC BID [facility] Last Admin: 03/18/18 22:34 Dose: 0.05 mls Sodium Chloride (Normal Saline 0.9%) 1,000 mls @ 75 mls/hr IV .[id number] [facility] Last Admin: 03/19/18 03:36 Dose: Not Given Ibuprofen (Motrin) 400 mg PO Q8H PRN PRN Reason: Pain Last Admin: 03/17/18 17:55 Dose: 400 mg Insulin Human Regular (Humulin R) 0 units SC .MODERATE SLIDING SC PRN PRN Reason: Moderate Correctional Scale Last Admin: 03/17/18 22:08 Dose: 2 unit Iron/Minerals/Multivitamins (Theragran M) 1 tab PO DAILY [facility] Last Admin: 03/18/18 09:16 Dose: 1 tab Labetalol HCl (Normodyne) 20 mg SLOW IVP Q15MIN PRN PRN Reason: Sbp Greater Than 140 Last Admin: 03/18/18 01:06 Dose: 20 mg Lactulose (Lactulose) 20 gm PO DAILY [facility] Last Admin: 03/18/18 09:16 Dose: 20 gm Magnesium Hydroxide (Milk Of Magnesium) 30 ml PO DAILYPRN PRN PRN Reason: Constipation Melatonin (Melatonin) 3 mg PO HS PRN PRN Reason: Insomnia Mineral Oil/White Petrolatum (Lacri-Lube Ointment) 0 gm EA EYE PRN PRN PRN Reason: Dry Eyes Ondansetron HCl (Zofran) 4 mg IVP Q6H PRN PRN Reason: Nausea/Vomiting Ondansetron HCl (Zofran Odt) 4 mg SL Q6H PRN PRN Reason: Nausea/Vomiting Last Admin: 03/17/18 21:56 Dose: 4 mg Senna/Docusate Sodium (Senokot S) 1 tab PO BID [facility] Last Admin: 03/18/18 22:34 Dose: Not Given Sodium Chloride (Flush - Normal Saline) 10 ml IVF PRN PRN PRN Reason: Saline Flush Last Admin: 03/18/18 01:43 Dose: 10 ml Thiamine HCl (Thiamine) 100 mg PO DAILY [facility] Last Admin: 03/18/18 09:17 Dose: 100 mg Tramadol HCl (Ultram) 50 mg PO Q6H PRN PRN Reason: Pain Last Admin: 03/17/18 21:55 Dose: 50 mg
[2018-03-19] MEDS ORDERED: Enalaprilat Dihydrate 1.25 MG/ML VIAL SLOW IVP SCH ×2 (08:15→09:00)
[2018-03-19] MEDS: Insulin Detemir 100 UNITS/ML 5 UNITS in Pre-Filled Syringe 1 EACH SC SCH ×2 (08:47→22:06)
[2018-03-19] MEDS: Carvedilol 6.25 MG TAB PO SCH ×2 (10:45→17:30)
[2018-03-19] MEDS: Cyanocobalamin (Vitamin B-12) 1,000 MCG TAB PO SCH (10:56)
[2018-03-19] MEDS: Famotidine 20 MG TAB PO SCH ×2 (10:56→22:05)
[2018-03-19] MEDS: Senokot S 8.6-50 MG TAB PO SCH ×2 (10:57→22:05)
[2018-03-19] MEDS: Folic Acid 1 MG TAB PO SCH (10:57)
[2018-03-19] MEDS: Multivitamin W/ Minerals 1 TAB PO SCH (10:57)
[2018-03-19] MEDS: traMADol HCl 50 MG TAB PO PRN (12:29)
[2018-03-19] MEDS: Lorazepam 2 MG/ML VIAL SLOW IVP PRN (15:15)
--- NOTE | 2018-03-19 17:57 | PRG ---
DATE OF SERVICE: 03/19/2018 SERVICE: Pulmonary Medicine. INTERVAL HISTORY: The patient is doing fine from a cardiovascular and respiratory standpoint. She is on room air. She denies any chest pain, nausea , vomiting. She is not having any fevers or chills. Overnight, events were not present. Otherwise, she seems to be moving in the right direction. Her mentation is much improved. PHYSICAL EXAMINATION: VITAL SIGNS: Afebrile, pulse 74, blood pressure 177/84, respirations 16, saturation 95% on room air. GENERAL: The patient is awake, alert, no apparent distress. LUNGS: Decent air entry without prolonged expiratory phase. There is no wheezing, rhonchi, or crackles present. HEART: Normal rate, regular. ABDOMEN: Soft, nontender, nondistended. Bowel sounds are positive. MUSCULOSKELETAL: No cyanosis or clubbing. There is no pitting in the bilateral lower extremities. LABORATORY DATA: WBC 12.4 and gently up trending. Hemoglobin 11.3, platelets 98,000 and rebounding. Basic metabolic profile is essentially unremarkable. Urinalysis is negative. Blood cultures x2, urine culture remains negative. ASSESSMENT: 1. Acute hypoxic respiratory failure, resolved. 2. Healthcare-associated pneumonia, resolved. 3. Intraparenchymal hemorrhage with intraventricular extension and subarachnoid extension. 4. Thrombocytopenia, resolving. 5. Alcohol abuse. 6. Cocaine abuse. 7. Delirium tremens, resolved. PLAN: The patient is doing fantastic from a respiratory perspective. I will drop her IV fluid rate. She has no further requirements for inpatient Pulmonary or Critical Care opinion. I will sign off. She is at extraordinarily high risk for developing aspiration related events in the future , however. Please call if there is an additional questions moving forward. From a respiratory standpoint, She can currently transition out of the hospital. GAVIN
[2018-03-20] MEDS: Lorazepam 2 MG/ML VIAL SLOW IVP PRN ×2 (01:44→13:50)
[2018-03-20] MEDS: cloNIDine 0.1 MG TAB PO PRN (01:44)
[2018-03-20] MEDS: Sodium Chloride 0.9% 1,000 ML IV SCH ×2 (03:14→23:22)
[2018-03-20] MEDS: Piperacillin/Tazobactam 3.375 GM in Sodium Chloride 0.9% 100 ML IVPB SCH ×4 (03:14→20:31)
[2018-03-20] MEDS: Acetaminophen 325 MG TAB PO PRN ×3 (04:58→23:54)
[2018-03-20] MEDS: CEFAZOLIN 1 GM, Syringe 2.5 ML in Sterile Water 7.5 ML SLOW IVP SCH (05:01)
[2018-03-20 05:58] LABS: Anion Gap 7 mmol/L (10-20); BUN (Urea Nitrogen) 9 mg/dL (9.8-20.1); Calc. Creatinine Clearance 106 mL/min (70-130); Calcium 7.8 mg/dL (7.8-10.44); Carbon Dioxide 21 mmol/L (22-29); Chloride 108 mmol/L (98-107); Estimated GFR-MDRD Greater than 90; Glucose 97 mg/dL (70-105); Potassium 3.1 mmol/L (3.5-5.1); Sodium 133 mmol/L (136-145)
[2018-03-20 06:02] LABS: #Eosinphils 0.2 thou/uL (0.0-0.7); #Lymphocytes 3.8 thou/uL (1.20-3.40); #Monocytes 1.2 thou/uL (0.11-0.59); #Neutrophils 3.8 thou/uL (1.40-6.50); %Basophils 0.4 % (0.0-1.0); %Eosinophils 2.3 % (0.0-10.0); %Lymphocytes 41.9 % (21.0-51.0); %Monocytes 13.3 % (0.0-10.0); %Neutrophils 42.1 % (42.0-75.0); Hemoglobin 11.2 g/dL (12.0-16.0); Mean Corpuscular HGB CONC 33.8 g/dL (32.0-36.0); Mean Corpuscular Hemoglobin 35.8 pg (27.0-31.0); Mean Platelet Volume 9.5 fL (7.4-10.4); Platelet Count 81 thou/uL (130-400); RBC Distribution Width 12.6 % (11.5-14.5); Red Blood Cell (RBC) Count 3.13 mill/uL (4.20-5.40); White Blood Cell (WBC) Count 9.1 thou/uL (4.8-10.8)
[2018-03-20] MEDS: Carvedilol 6.25 MG TAB PO SCH ×2 (10:50→16:08)
[2018-03-20] MEDS: Famotidine 20 MG TAB PO SCH ×2 (10:51→20:32)
[2018-03-20] MEDS: Folic Acid 1 MG TAB PO SCH (10:51)
[2018-03-20] MEDS: Cyanocobalamin (Vitamin B-12) 1,000 MCG TAB PO SCH (10:51)
[2018-03-20] MEDS: Insulin Detemir 100 UNITS/ML 5 UNITS in Pre-Filled Syringe 1 EACH SC SCH (10:52)
[2018-03-20] MEDS: Multivitamin W/ Minerals 1 TAB PO SCH (10:53)
[2018-03-20] MEDS: Lisinopril 5 MG TAB PO SCH ×2 (10:53→20:32)
[2018-03-20] MEDS: levETIRAcetam 500 MG TAB PO SCH ×2 (10:53→20:33)
[2018-03-20] MEDS: Senokot S 8.6-50 MG TAB PO SCH ×2 (10:54→20:33)
[2018-03-20] MEDS: traMADol HCl 50 MG TAB PO PRN (10:54)
[2018-03-20] MEDS: hydrALAZINE 20 MG/ML VIAL SLOW IVP PRN ×2 (11:52→23:49)
--- NOTE | 2018-03-20 13:20 | PDOC.PN ---
- Subjective Encounter Start Date: 03/20/18 Encounter Start Time: 13:16 Subjective: c/o headache and general discomfort -: not oriented and has to be redirected - Objective MAR Reviewed: Yes Vital Signs & Weight: Vital Signs (12 hours) Temp Pulse Resp BP BP BP Pulse Ox 03/20/18 13:00 178/83 H 03/20/18 11:52 73 178/83 H 03/20/18 11:50 209/97 H 03/20/18 11:20 98.3 F 73 16 178/83 H 97 03/20/18 10:53 78 189/88 H 03/20/18 10:50 189/88 H 03/20/18 10:37 78 16 93 L 03/20/18 09:00 189/88 H 03/20/18 08:00 98.3 F 72 16 95 03/20/18 07:33 98.3 F 72 16 189/88 H 95 03/20/18 05:56 99.0 F 03/20/18 05:10 129/60 03/20/18 03:02 100.2 F H 62 16 129/60 92 L 03/20/18 02:33 60 16 94 L 03/20/18 01:44 177/85 H 03/20/18 01:40 177/85 H Weight Admit Weight 138 lb 10.732 oz Weight 144 lb 12.8 oz Most Recent Monitor Data Heart Rate from ECG 72 NIBP 138/59 NIBP BP-Mean 89 Respiration from ECG 21 SpO2 95 I&O: 03/19/18 03/20/18 03/21/18 06:59 06:59 06:59 Intake Total 2237 Balance 2237 Result Diagrams: 03/20/18 05:26 03/20/18 05:26 Additional Labs: Accuchecks 03/20/18 03/20/18 03/19/18 10:51 06:32 20:35 POC Glucose 120 H 97 104 03/19/18 17:05 POC Glucose 95 Microbiology 03/15/18 09:53 Urine powell catheter Urine Culture - Final NO GROWTH AT 48 HOURS 03/15/18 08:44 Venous blood - Right Hand Blood Culture - Final NO GROWTH IN 5 DAYS 03/15/18 08:39 Venous blood - Left Hand Blood Culture - Final NO GROWTH IN 5 DAYS Phys Exam - Physical Examination Constitutional: NAD fidgety in bed HEENT: PERRLA, moist MMs, sclera anicteric, oral pharynx no lesions R scalp kam w/o erythema/discharge Neck: no nodes, no JVD, supple, full ROM Respiratory: no wheezing, no rales, no rhonchi, clear to auscultation bilateral Cardiovascular: RRR, no significant murmur, no rub Gastrointestinal: soft, non-tender, no distention, positive bowel sounds Musculoskeletal: no edema, pulses present moving left leg better today but L arm paresis agitated.oriented to self only Skin: no rash Dx/Plan (1) Intracranial hemorrhage Code(s): I62.9 - NONTRAUMATIC INTRACRANIAL HEMORRHAGE, UNSPECIFIED Status: Acute Comment: Frequent neuro checks.Stable (2) Cerebral edema Code(s): G93.6 - CEREBRAL EDEMA Status: Acute Comment: s/p EVD and them removal (3) Midline shift of brain due to hematoma Code(s): G93.9 - DISORDER OF BRAIN, UNSPECIFIED Status: Acute Comment: s/p Craniotomy and evacuation and EVD (4) Status post craniotomy Status: Acute (5) Abnormal LFTs Code(s): R94.5 - ABNORMAL RESULTS OF LIVER FUNCTION STUDIES Status: Chronic Comment: trending down.monitor. mervin due to Chr Hep C and ETOH liver disease (6) Alcohol abuse Code(s): F10.10 - ALCOHOL ABUSE, UNCOMPLICATED Status: Chronic (7) Chronic hepatitis C Code(s): B18.2 - CHRONIC VIRAL HEPATITIS C Status: Chronic Qualifiers: Hepatic coma status: without hepatic coma Qualified Code(s): B18.2 - Chronic viral hepatitis C (8) Cocaine abuse Code(s): F14.10 - COCAINE ABUSE, UNCOMPLICATED Status: Chronic (9) Macrocytosis Code(s): D75.89 - OTHER SPECIFIED DISEASES OF BLOOD AND BLOOD-FORMING ORGANS Status: Chronic (10) Thrombocytopenia Code(s): D69.6 - THROMBOCYTOPENIA, UNSPECIFIED Status: Chronic Comment: Improved after transfusion recently.Dut to Chronic liver disease mervin.Monitor (11) Respiratory insufficiency/failure Code(s): R06.89 - OTHER ABNORMALITIES OF BREATHING Status: Resolved (12) Dysphagia as late effect of cerebrovascular accident (CVA) Code(s): I69.391 - DYSPHAGIA FOLLOWING CEREBRAL INFARCTION Status: Acute Comment: improved with improved cognition.approved fro regular diet by DISTRICT ENGINEER (13) Aspiration pneumonia Code(s): J69.0 - PNEUMONITIS DUE TO INHALATION OF FOOD AND VOMIT Status: Suspected Qualifiers: Aspiration pneumonia type: due to gastric secretions Comment: on Zosyn - Plan continue antibiotics, PT/OT, case management social worker, respiratory therapy, incentive spirometry, DVT proph w/SCDs cont supportive care.needs placement now but uninsured -: cont.Pt,OT,lion hunter.cleared for regular diet. -: cont zosyn for now.DC if all Cx remian negative. -: BP higher.add Lisinopril.cont coreg -: change Keppra to PO.DC Ancef * .replace and recheck potassium * labs reviewed Review of Systems - Review of Systems Other: Can not be obtained due to encephalopathy from stroke - Medications/Allergies Allergies/Adverse Reactions: Allergies Allergy/AdvReac Type Severity Reaction Status Date / Time No Known Drug Allergies Allergy Verified 03/09/18 17:54 Medications: Current Medications Acetaminophen (Tylenol) 650 mg PO Q6H PRN PRN Reason: Pain Last Admin: 03/20/18 04:58 Dose: 650 mg Albuterol/Ipratropium (Duoneb) 3 ml NEB [id number] [facility] Last Admin: 03/20/18 10:37 Dose: 3 ml Carvedilol (Coreg) 6.25 mg PO BID-WM [facility] Last Admin: 03/20/18 10:50 Dose: 6.25 mg Clonidine (Catapres) 0.1 mg PO Q4H PRN PRN Reason: Systolic BP > 160 Last Admin: 03/20/18 01:44 Dose: 0.1 mg Cyanocobalamin (Vitamin B-12) 1,000 mcg PO DAILY [facility] Last Admin: 03/20/18 10:51 Dose: 1,000 mcg Dextrose/Water (Dextrose 50%) 25 gm SLOW IVP PRN PRN PRN Reason: Hypoglycemia Docusate Sodium (Colace) 100 mg PO BIDPRN PRN PRN Reason: Constipation Last Admin: 03/10/18 08:40 Dose: 100 mg Famotidine (Pepcid) 20 mg PO BID [facility] Last Admin: 03/20/18 10:51 Dose: 20 mg Folic Acid (Folvite) 1 mg PO DAILY [facility] Last Admin: 03/20/18 10:51 Dose: 1 mg Glucagon (Glucagon) 1 mg IM PRN PRN PRN Reason: Hypoglycemia Hydralazine HCl (Apresoline) 10 mg SLOW IVP Q4H PRN PRN Reason: SBP>160 Last Admin: 03/20/18 11:52 Dose: 10 mg Piperacillin Sod/Tazobactam (Sod 3.375 gm/ Sodium Chloride) 100 mls @ 200 mls/ hr IVPB 0300,0900,1500,2100 [facility] Stop: 03/22/18 09:01 Last Admin: 03/20/18 10:53 Dose: 100 mls Dextrose/Water (D5w) 1,000 mls @ 0 mls/hr IV .Q0M PRN; As Directed PRN Reason: Hypoglycemia Insulin Detemir 5 units/ (Miscellaneous Medication) 0.05 mls @ 0 mls/hr SC BID [facility] Last Admin: 03/20/18 10:52 Dose: 0.05 mls Sodium Chloride (Normal Saline 0.9%) 1,000 mls @ 40 mls/hr IV .Q24H [facility] Last Admin: 03/20/18 03:14 Dose: Not Given Potassium Chloride 40 meq/ (Device) 100 mls @ 25 mls/hr IVPB ONE [facility] Ibuprofen (Motrin) 400 mg PO Q8H PRN PRN Reason: Pain Last Admin: 03/17/18 17:55 Dose: 400 mg Insulin Human Regular (Humulin R) 0 units SC .MODERATE SLIDING SC PRN PRN Reason: Moderate Correctional Scale Last Admin: 03/17/18 22:08 Dose: 2 unit Iron/Minerals/Multivitamins (Theragran M) 1 tab PO DAILY [facility] Last Admin: 03/20/18 10:53 Dose: 1 tab Labetalol HCl (Normodyne) 20 mg SLOW IVP Q15MIN PRN PRN Reason: Sbp Greater Than 140 Last Admin: 03/18/18 01:06 Dose: 20 mg Lactulose (Lactulose) 20 gm PO DAILY [facility] Last Admin: 03/20/18 10:52 Dose: 20 gm Levetiracetam (Keppra) 500 mg PO BID [facility] Last Admin: 03/20/18 10:53 Dose: 500 mg Lisinopril (Zestril) 5 mg PO BID [facility] Last Admin: 03/20/18 10:53 Dose: 5 mg Lorazepam (Ativan) 0.5 mg SLOW IVP BID PRN PRN Reason: Agitation Last Admin: 03/20/18 01:44 Dose: 0.5 mg Magnesium Hydroxide (Milk Of Magnesium) 30 ml PO DAILYPRN PRN PRN Reason: Constipation Melatonin (Melatonin) 3 mg PO HS PRN PRN Reason: Insomnia Mineral Oil/White Petrolatum (Lacri-Lube Ointment) 0 gm EA EYE PRN PRN PRN Reason: Dry Eyes Ondansetron HCl (Zofran) 4 mg IVP Q6H PRN PRN Reason: Nausea/Vomiting Ondansetron HCl (Zofran Odt) 4 mg SL Q6H PRN PRN Reason: Nausea/Vomiting Last Admin: 03/17/18 21:56 Dose: 4 mg Senna/Docusate Sodium (Senokot S) 1 tab PO BID SUMA Last Admin: 03/20/18 10:54 Dose: 1 tab Sodium Chloride (Flush - Normal Saline) 10 ml IVF PRN PRN PRN Reason: Saline Flush Last Admin: 03/18/18 01:43 Dose: 10 ml Thiamine HCl (Thiamine) 100 mg PO DAILY SUMA Last Admin: 03/20/18 10:54 Dose: 100 mg Tramadol HCl (Ultram) 50 mg PO Q6H PRN PRN Reason: Pain Last Admin: 03/20/18 10:54 Dose: 50 mg
[2018-03-20] MEDS ORDERED: Potassium Chloride 40 MEQ in Sodium Chloride 0.9% 250 ML 250 ML IVPB SCH (14:30)
--- NOTE | 2018-03-20 14:32 | PRG ---
DATE OF SERVICE: 03/20/2018 Nii Plummer PA-C, dictating for Dr. Parveen Maya. Ms. Arrieta is now postoperative day 10, having undergone right parietal craniotomy for evacuation of i ntraparenchymal hemorrhage. The patient complains of some headache in the right temporal region toda y. She has also noticed some nausea, no vomiting. She denies blurred vision. She continues to impr ove neurologically. She has good strength in the right upper and right lower extremities with overal l improving strength in the left upper and lower extremities. She is minimally conversant but answer s questions appropriately. At this time, Neurosurgery will sign off as the patient is doing well misa rologically. Her kam will be ready to come out on Monday03/26/2018, so now the main issue for h er is disposition, although it should be noted that the patient's blood pressure has been relatively high and we would like this to be systolic blood pressure less than 170. Again, we will transfer [facility] to our hospitalist team and appreciate their medical management of the patient. Please alonso l with any questions or changes in patient's neurologic status.
[2018-03-20] MEDS: Insulin Glargine 5 UNITS in Pre-Filled Syringe 1 EACH SC SCH (20:31)
[2018-03-21] MEDS: Piperacillin/Tazobactam 3.375 GM in Sodium Chloride 0.9% 100 ML IVPB SCH ×4 (03:45→21:03)
[2018-03-21 05:38] LABS: #Basophils 0.1 thou/uL (0.0-0.2); #Eosinphils 0.2 thou/uL (0.0-0.7); #Lymphocytes 3.9 thou/uL (1.20-3.40); #Monocytes 1.2 thou/uL (0.11-0.59); %Basophils 0.7 % (0.0-1.0); %Lymphocytes 41.8 % (21.0-51.0); %Monocytes 12.5 % (0.0-10.0); %Neutrophils 43.1 % (42.0-75.0); Hemoglobin 11.6 g/dL (12.0-16.0); Mean Corpuscular HGB CONC 33.8 g/dL (32.0-36.0); Mean Corpuscular Hemoglobin 35.6 pg (27.0-31.0); Platelet Count 73 thou/uL (130-400); RBC Distribution Width 12.5 % (11.5-14.5); Red Blood Cell (RBC) Count 3.25 mill/uL (4.20-5.40); White Blood Cell (WBC) Count 9.3 thou/uL (4.8-10.8)
[2018-03-21 05:52] LABS: Anion Gap 9 mmol/L (10-20); BUN (Urea Nitrogen) 7 mg/dL (9.8-20.1); Calc. Creatinine Clearance 118 mL/min (70-130); Calcium 8.2 mg/dL (7.8-10.44); Carbon Dioxide 23 mmol/L (22-29); Chloride 106 mmol/L (98-107); Estimated GFR-MDRD Greater than 90; Glucose 108 mg/dL (70-105); Potassium 3.1 mmol/L (3.5-5.1); Sodium 135 mmol/L (136-145)
[2018-03-21] MEDS ORDERED: Lisinopril 5 MG TAB PO SCH (08:07)
[2018-03-21] MEDS ORDERED: Potassium Chloride 40 MEQ in Premix Bag 1 BAG IVPB SCH (08:15)
[2018-03-21] MEDS: Insulin Glargine 5 UNITS in Pre-Filled Syringe 1 EACH SC SCH ×2 (09:14→21:01)
[2018-03-21] MEDS: Carvedilol 6.25 MG TAB PO SCH ×2 (09:15→15:44)
[2018-03-21] MEDS: Lisinopril 10 MG TAB PO SCH ×2 (09:16→21:02)
[2018-03-21] MEDS: Multivitamin W/ Minerals 1 TAB PO SCH (09:16)
[2018-03-21] MEDS: Folic Acid 1 MG TAB PO SCH (09:16)
[2018-03-21] MEDS: Senokot S 8.6-50 MG TAB PO SCH ×2 (09:17→21:02)
[2018-03-21] MEDS: traMADol HCl 50 MG TAB PO PRN ×2 (09:17→15:43)
[2018-03-21] MEDS: levETIRAcetam 500 MG TAB PO SCH ×2 (09:17→21:02)
[2018-03-21] MEDS: Cyanocobalamin (Vitamin B-12) 1,000 MCG TAB PO SCH (09:17)
[2018-03-21] MEDS: Famotidine 20 MG TAB PO SCH ×2 (09:17→21:02)
[2018-03-21] MEDS: Potassium Chloride 20 MEQ in Premix Bag 1 BAG IVPB SCH ×2 (10:14→13:53)
[2018-03-21] MEDS: Labetalol HCl 100 MG/20 ML VIAL SLOW IVP PRN (11:02)
--- NOTE | 2018-03-21 13:12 | PDOC.PN ---
- Subjective Encounter Start Date: 03/21/18 Encounter Start Time: 13:10 Subjective: feels hungry and thirsty.persaud snot reply qs directly,still confused -: worked w Pt & sat at the side of bed -: no overnight events.labs reviewed - Objective MAR Reviewed: Yes Vital Signs & Weight: Vital Signs (12 hours) Temp Pulse Resp BP BP Pulse Ox 03/21/18 11:41 99.4 F 62 16 162/79 H 96 03/21/18 11:02 188/92 H 03/21/18 09:17 162/79 H 03/21/18 09:16 184/82 H 03/21/18 09:15 182/84 H 03/21/18 08:59 99.4 F 62 16 96 03/21/18 08:02 78 16 97 03/21/18 07:33 99.9 F H 74 16 96 03/21/18 04:59 167/77 H 03/21/18 03:52 98.4 F 71 18 167/77 H 97 03/21/18 02:19 68 12 Weight Admit Weight 138 lb 10.732 oz Weight 130 lb 14.4 oz Most Recent Monitor Data Heart Rate from ECG 72 NIBP 138/59 NIBP BP-Mean 89 Respiration from ECG 21 SpO2 95 I&O: 03/20/18 03/21/18 03/22/18 06:59 06:59 06:59 Intake Total 2237 1760 Balance 2237 1760 Result Diagrams: 03/21/18 05:29 03/21/18 05:29 Additional Labs: Accuchecks 03/21/18 03/21/18 03/20/18 10:48 06:04 20:31 POC Glucose 136 H 109 129 H 03/20/18 16:36 POC Glucose 140 H Microbiology 03/15/18 09:53 Urine powell catheter Urine Culture - Final NO GROWTH AT 48 HOURS 03/15/18 08:44 Venous blood - Right Hand Blood Culture - Final NO GROWTH IN 5 DAYS 03/15/18 08:39 Venous blood - Left Hand Blood Culture - Final NO GROWTH IN 5 DAYS Laboratory Tests 03/19/18 03/20/18 03/21/18 05:30 05:26 05:29 Potassium 3.5 3.1 L 3.1 L Phys Exam - Physical Examination Constitutional: NAD awake and alert,does not follow commands HEENT: PERRLA, moist MMs, sclera anicteric, oral pharynx no lesions Neck: no nodes, no JVD, supple, full ROM Respiratory: no wheezing, no rales Cardiovascular: RRR, no significant murmur Gastrointestinal: soft, non-tender, no distention, positive bowel sounds Musculoskeletal: no edema, pulses present not moving left side.left neglect and sensory loss Psychiatric: normal affect Deviation from normal: oriented to self Skin: no rash Dx/Plan (1) Intracranial hemorrhage Code(s): I62.9 - NONTRAUMATIC INTRACRANIAL HEMORRHAGE, UNSPECIFIED Status: Acute Comment: Frequent neuro checks.Stable.s/p EVD and removal.Kirsten to be reomoved by NS 03/26/18 (2) Cerebral edema Code(s): G93.6 - CEREBRAL EDEMA Status: Acute Comment: s/p EVD and them removal (3) Midline shift of brain due to hematoma Code(s): G93.9 - DISORDER OF BRAIN, UNSPECIFIED Status: Acute Comment: s/p Craniotomy and evacuation and EVD (4) Hypokalemia Code(s): E87.6 - HYPOKALEMIA Status: Acute Comment: replace and recheck (5) Status post craniotomy Status: Acute (6) Abnormal LFTs Code(s): R94.5 - ABNORMAL RESULTS OF LIVER FUNCTION STUDIES Status: Chronic Comment: trending down.monitor. mervin due to Chr Hep C and ETOH liver disease (7) Alcohol abuse Code(s): F10.10 - ALCOHOL ABUSE, UNCOMPLICATED Status: Chronic (8) Chronic hepatitis C Code(s): B18.2 - CHRONIC VIRAL HEPATITIS C Status: Chronic Qualifiers: Hepatic coma status: without hepatic coma Qualified Code(s): B18.2 - Chronic viral hepatitis C (9) Cocaine abuse Code(s): F14.10 - COCAINE ABUSE, UNCOMPLICATED Status: Chronic (10) Macrocytosis Code(s): D75.89 - OTHER SPECIFIED DISEASES OF BLOOD AND BLOOD-FORMING ORGANS Status: Chronic (11) Thrombocytopenia Code(s): D69.6 - THROMBOCYTOPENIA, UNSPECIFIED Status: Chronic Comment: Improved after transfusion recently.Dut to Chronic liver disease mervin.Monitor (12) Respiratory insufficiency/failure Code(s): R06.89 - OTHER ABNORMALITIES OF BREATHING Status: Resolved (13) Dysphagia as late effect of cerebrovascular accident (CVA) Code(s): I69.391 - DYSPHAGIA FOLLOWING CEREBRAL INFARCTION Status: Acute Comment: improved with improved cognition.approved fro regular diet by BEARING PRESS MACHINE OPERATOR (14) Aspiration pneumonia Code(s): J69.0 - PNEUMONITIS DUE TO INHALATION OF FOOD AND VOMIT Status: Suspected Qualifiers: Aspiration pneumonia type: due to gastric secretions Comment: on Zosyn - Plan continue antibiotics, PT/OT, speech therapy, respiratory therapy, out of bed/ ambulate, DVT proph w/SCDs BP still high.increase lisinopril which was added yesterday.Monitor -: cont empiric ABx for possb ASP pna.LOW Gd FEVER THIS AM. -: cont neuro checks,OT,PT.tolerating PO -: Keppra for seizure prophylaxis -: need placement,otherwise medically stable * .am labs Review of Systems - Review of Systems Other: can not be obtained fully due to encephalopathy from ICH - Medications/Allergies Allergies/Adverse Reactions: Allergies Allergy/AdvReac Type Severity Reaction Status Date / Time No Known Drug Allergies Allergy Verified 03/09/18 17:54 Medications: Current Medications Acetaminophen (Tylenol) 650 mg PO Q6H PRN PRN Reason: Pain Last Admin: 03/20/18 23:54 Dose: 650 mg Albuterol/Ipratropium (Duoneb) 3 ml NEB Q4H PRN PRN Reason: SOB Carvedilol (Coreg) 6.25 mg PO BID-WM [facility] Last Admin: 03/21/18 09:15 Dose: 6.25 mg Clonidine (Catapres) 0.1 mg PO Q4H PRN PRN Reason: Systolic BP > 160 Last Admin: 03/20/18 01:44 Dose: 0.1 mg Cyanocobalamin (Vitamin B-12) 1,000 mcg PO DAILY [facility] Last Admin: 03/21/18 09:17 Dose: 1,000 mcg Dextrose/Water (Dextrose 50%) 25 gm SLOW IVP PRN PRN PRN Reason: Hypoglycemia Docusate Sodium (Colace) 100 mg PO BIDPRN PRN PRN Reason: Constipation Last Admin: 03/10/18 08:40 Dose: 100 mg Famotidine (Pepcid) 20 mg PO BID [facility] Last Admin: 03/21/18 09:17 Dose: 20 mg Folic Acid (Folvite) 1 mg PO DAILY [facility] Last Admin: 03/21/18 09:16 Dose: 1 mg Glucagon (Glucagon) 1 mg IM PRN PRN PRN Reason: Hypoglycemia Hydralazine HCl (Apresoline) 10 mg SLOW IVP Q4H PRN PRN Reason: SBP>160 Last Admin: 03/20/18 23:49 Dose: 10 mg Piperacillin Sod/Tazobactam (Sod 3.375 gm/ Sodium Chloride) 100 mls @ 200 mls/ hr IVPB 0300,0900,1500,2100 [facility] Stop: 03/22/18 09:01 Last Admin: 03/21/18 09:14 Dose: 100 mls Dextrose/Water (D5w) 1,000 mls @ 0 mls/hr IV .Q0M PRN; As Directed PRN Reason: Hypoglycemia Sodium Chloride (Normal Saline 0.9%) 1,000 mls @ 40 mls/hr IV .Q24H [facility] Last Admin: 03/20/18 23:22 Dose: 1,000 mls Insulin Glargine 5 units/ (Miscellaneous Medication) 0.05 mls @ 0 mls/hr SC BID [facility] Last Admin: 03/21/18 09:14 Dose: 0.05 mls Insulin Human Regular (Humulin R) 0 units SC .MODERATE SLIDING SC PRN PRN Reason: Moderate Correctional Scale Last Admin: 03/17/18 22:08 Dose: 2 unit Iron/Minerals/Multivitamins (Theragran M) 1 tab PO DAILY [facility] Last Admin: 03/21/18 09:16 Dose: 1 tab Labetalol HCl (Normodyne) 20 mg SLOW IVP Q15MIN PRN PRN Reason: Sbp Greater Than 140 Last Admin: 03/21/18 11:02 Dose: 20 mg Lactulose (Lactulose) 20 gm PO DAILY [facility] Last Admin: 03/21/18 09:14 Dose: 20 gm Levetiracetam (Keppra) 500 mg PO BID [facility] Last Admin: 03/21/18 09:17 Dose: 500 mg Lisinopril (Zestril) 10 mg PO BID [facility] Last Admin: 03/21/18 09:16 Dose: 10 mg Lorazepam (Ativan) 0.5 mg SLOW IVP BID PRN PRN Reason: Agitation Last Admin: 03/20/18 13:50 Dose: 0.5 mg Magnesium Hydroxide (Milk Of Magnesium) 30 ml PO DAILYPRN PRN PRN Reason: Constipation Melatonin (Melatonin) 3 mg PO HS PRN PRN Reason: Insomnia Mineral Oil/White Petrolatum (Lacri-Lube Ointment) 0 gm EA EYE PRN PRN PRN Reason: Dry Eyes Ondansetron HCl (Zofran) 4 mg IVP Q6H PRN PRN Reason: Nausea/Vomiting Ondansetron HCl (Zofran Odt) 4 mg SL Q6H PRN PRN Reason: Nausea/Vomiting Last Admin: 03/17/18 21:56 Dose: 4 mg Senna/Docusate Sodium (Senokot S) 1 tab PO BID [facility] Last Admin: 03/21/18 09:17 Dose: 1 tab Sodium Chloride (Flush - Normal Saline) 10 ml IVF PRN PRN PRN Reason: Saline Flush Last Admin: 03/18/18 01:43 Dose: 10 ml Thiamine HCl (Thiamine) 100 mg PO DAILY [facility] Last Admin: 03/21/18 09:18 Dose: 100 mg Tramadol HCl (Ultram) 50 mg PO Q6H PRN PRN Reason: Pain Last Admin: 03/21/18 09:17 Dose: 50 mg
[2018-03-21] MEDS: cloNIDine 0.1 MG TAB PO PRN (15:48)
[2018-03-22] MEDS: Piperacillin/Tazobactam 3.375 GM in Sodium Chloride 0.9% 100 ML IVPB SCH ×2 (03:26→08:02)
[2018-03-22] MEDS: Lorazepam 2 MG/ML VIAL SLOW IVP PRN (03:48)
[2018-03-22 04:39] LABS: #Basophils 0.1 thou/uL (0.0-0.2); #Eosinphils 0.2 thou/uL (0.0-0.7); #Lymphocytes 3.8 thou/uL (1.20-3.40); #Neutrophils 3.9 thou/uL (1.40-6.50); %Basophils 0.7 % (0.0-1.0); %Eosinophils 2.3 % (0.0-10.0); %Lymphocytes 42.6 % (21.0-51.0); %Neutrophils 43.3 % (42.0-75.0); Hemoglobin 11.6 g/dL (12.0-16.0); Mean Corpuscular HGB CONC 34.6 g/dL (32.0-36.0); Mean Corpuscular Hemoglobin 36.5 pg (27.0-31.0); Mean Platelet Volume 9.9 fL (7.4-10.4); Platelet Count 84 thou/uL (130-400); RBC Distribution Width 12.6 % (11.5-14.5); Red Blood Cell (RBC) Count 3.19 mill/uL (4.20-5.40); White Blood Cell (WBC) Count 8.9 thou/uL (4.8-10.8)
[2018-03-22 05:04] LABS: Anion Gap 9 mmol/L (10-20); BUN (Urea Nitrogen) 7 mg/dL (9.8-20.1); Calc. Creatinine Clearance 109 mL/min (70-130); Calcium 8.2 mg/dL (7.8-10.44); Carbon Dioxide 21 mmol/L (22-29); Chloride 103 mmol/L (98-107); Estimated GFR-MDRD Greater than 90; Glucose 79 mg/dL (70-105); Potassium 3.3 mmol/L (3.5-5.1); Sodium 130 mmol/L (136-145)
[2018-03-22] MEDS: Cyanocobalamin (Vitamin B-12) 1,000 MCG TAB PO SCH (08:00)
[2018-03-22] MEDS: Carvedilol 6.25 MG TAB PO SCH ×2 (08:01→17:31)
[2018-03-22] MEDS: Lisinopril 10 MG TAB PO SCH (08:01)
[2018-03-22] MEDS: Famotidine 20 MG TAB PO SCH ×2 (08:01→20:54)
[2018-03-22] MEDS: Multivitamin W/ Minerals 1 TAB PO SCH (08:01)
[2018-03-22] MEDS: levETIRAcetam 500 MG TAB PO SCH ×2 (08:02→20:53)
[2018-03-22] MEDS: Senokot S 8.6-50 MG TAB PO SCH (08:02)
--- NOTE | 2018-03-22 08:20 | PDOC.PN ---
- Subjective Encounter Start Date: 03/22/18 Encounter Start Time: 08:19 Subjective: sister in the room and care discussed w her -: pt awake but remains confusewd. -: no ON events.no new complaints except Headache - Objective MAR Reviewed: Yes Vital Signs & Weight: Vital Signs (12 hours) Temp Pulse Resp BP BP Pulse Ox 03/22/18 08:01 176/84 H 03/22/18 07:02 99.3 F 63 18 176/84 H 96 03/22/18 03:15 98.9 F 56 L 18 160/79 H 100 03/21/18 23:02 97.6 F 55 L 18 164/80 H 97 03/21/18 21:02 126/80 Weight Admit Weight 138 lb 10.732 oz Weight 134 lb 1.6 oz Most Recent Monitor Data Heart Rate from ECG 72 NIBP 138/59 NIBP BP-Mean 89 Respiration from ECG 21 SpO2 95 I&O: 03/21/18 03/22/18 03/23/18 06:59 06:59 06:59 Intake Total 1760 1480 Balance 1760 1480 Result Diagrams: 03/22/18 04:10 03/22/18 04:10 Additional Labs: Accuchecks 03/22/18 03/21/18 03/21/18 06:05 20:54 16:43 POC Glucose 83 120 H 106 03/21/18 10:48 POC Glucose 136 H Phys Exam - Physical Examination Constitutional: NAD fidgety HEENT: PERRLA, moist MMs, sclera anicteric, oral pharynx no lesions Neck: no nodes, no JVD, supple, full ROM Respiratory: no wheezing, no rales, no rhonchi, clear to auscultation bilateral Cardiovascular: RRR, no significant murmur, no rub Gastrointestinal: soft, non-tender, no distention, positive bowel sounds Musculoskeletal: no edema, pulses present left hemiparesis worse in arm,left randy neglect Psychiatric: normal affect Deviation from normal: oriented to self only Skin: no rash Dx/Plan (1) Intracranial hemorrhage Code(s): I62.9 - NONTRAUMATIC INTRACRANIAL HEMORRHAGE, UNSPECIFIED Status: Acute Comment: Frequent neuro checks.Stable.s/p EVD and removal.[place] to be reomoved by NS 03/26/18 (2) Cerebral edema Code(s): G93.6 - CEREBRAL EDEMA Status: Acute Comment: s/p EVD and them removal (3) Midline shift of brain due to hematoma Code(s): G93.9 - DISORDER OF BRAIN, UNSPECIFIED Status: Acute Comment: s/p Craniotomy and evacuation and EVD (4) Hypokalemia Code(s): E87.6 - HYPOKALEMIA Status: Acute Comment: replace and recheck (5) Status post craniotomy Status: Acute (6) Abnormal LFTs Code(s): R94.5 - ABNORMAL RESULTS OF LIVER FUNCTION STUDIES Status: Chronic Comment: trending down.monitor. mervin due to Chr Hep C and ETOH liver disease (7) Alcohol abuse Code(s): F10.10 - ALCOHOL ABUSE, UNCOMPLICATED Status: Chronic (8) Chronic hepatitis C Code(s): B18.2 - CHRONIC VIRAL HEPATITIS C Status: Chronic Qualifiers: Hepatic coma status: without hepatic coma Qualified Code(s): B18.2 - Chronic viral hepatitis C (9) Cocaine abuse Code(s): F14.10 - COCAINE ABUSE, UNCOMPLICATED Status: Chronic (10) Macrocytosis Code(s): D75.89 - OTHER SPECIFIED DISEASES OF BLOOD AND BLOOD-FORMING ORGANS Status: Chronic (11) Thrombocytopenia Code(s): D69.6 - THROMBOCYTOPENIA, UNSPECIFIED Status: Chronic Comment: Improved after transfusion recently.Dut to Chronic liver disease mervin.Monitor (12) Respiratory insufficiency/failure Code(s): R06.89 - OTHER ABNORMALITIES OF BREATHING Status: Resolved (13) Dysphagia as late effect of cerebrovascular accident (CVA) Code(s): I69.391 - DYSPHAGIA FOLLOWING CEREBRAL INFARCTION Status: Acute Comment: improved with improved cognition.approved fro regular diet by OBSTETRICS AND GYNECOLOGY PROFESSOR (14) Aspiration pneumonia Code(s): J69.0 - PNEUMONITIS DUE TO INHALATION OF FOOD AND VOMIT Status: Suspected Qualifiers: Aspiration pneumonia type: due to gastric secretions Comment: on Zosyn - Plan continue antibiotics, PT/OT, manager social work, speech therapy, respiratory therapy, out of bed/ambulate, DVT proph w/SCDs BP still high.will further increase Lisinopril -: avoid increasing BB as HR marginal. -: HD stable . -: awaiting placement -: If afebrile,will stop ABx tomorrow. * . Review of Systems - Review of Systems Other: difficult to obtaain as pt does not follow commands or answer any q straight.mervin d/t stroke - Medications/Allergies Allergies/Adverse Reactions: Allergies Allergy/AdvReac Type Severity Reaction Status Date / Time No Known Drug Allergies Allergy Verified 03/09/18 17:54 Medications: Current Medications Acetaminophen (Tylenol) 650 mg PO Q6H PRN PRN Reason: Pain Last Admin: 03/20/18 23:54 Dose: 650 mg Albuterol/Ipratropium (Duoneb) 3 ml NEB Q4H PRN PRN Reason: SOB Carvedilol (Coreg) 6.25 mg PO BID-[facility] Last Admin: 03/22/18 08:01 Dose: 6.25 mg Clonidine (Catapres) 0.1 mg PO Q4H PRN PRN Reason: Systolic BP > 160 Last Admin: 03/21/18 15:48 Dose: 0.1 mg Cyanocobalamin (Vitamin B-12) 1,000 mcg PO DAILY [facility] Last Admin: 03/22/18 08:00 Dose: 1,000 mcg Dextrose/Water (Dextrose 50%) 25 gm SLOW IVP PRN PRN PRN Reason: Hypoglycemia Docusate Sodium (Colace) 100 mg PO BIDPRN PRN PRN Reason: Constipation Last Admin: 03/10/18 08:40 Dose: 100 mg Famotidine (Pepcid) 20 mg PO BID [facility] Last Admin: 03/22/18 08:01 Dose: 20 mg Folic Acid (Folvite) 1 mg PO DAILY [facility] Last Admin: 03/21/18 09:16 Dose: 1 mg Glucagon (Glucagon) 1 mg IM PRN PRN PRN Reason: Hypoglycemia Hydralazine HCl (Apresoline) 10 mg SLOW IVP Q4H PRN PRN Reason: SBP>160 Last Admin: 03/20/18 23:49 Dose: 10 mg Piperacillin Sod/Tazobactam (Sod 3.375 gm/ Sodium Chloride) 100 mls @ 200 mls/ hr IVPB 0300,0900,1500,2100 [facility] Stop: 03/22/18 09:01 Last Admin: 03/22/18 08:02 Dose: 100 mls Dextrose/Water (D5w) 1,000 mls @ 0 mls/hr IV .Q0M PRN; As Directed PRN Reason: Hypoglycemia Insulin Glargine 5 units/ (Miscellaneous Medication) 0.05 mls @ 0 mls/hr SC BID [facility] Last Admin: 03/21/18 21:01 Dose: 0.05 mls Insulin Human Regular (Humulin R) 0 units SC .MODERATE SLIDING SC PRN PRN Reason: Moderate Correctional Scale Last Admin: 03/17/18 22:08 Dose: 2 unit Iron/Minerals/Multivitamins (Theragran M) 1 tab PO DAILY [facility] Last Admin: 03/22/18 08:01 Dose: 1 tab Labetalol HCl (Normodyne) 20 mg SLOW IVP Q15MIN PRN PRN Reason: Sbp Greater Than 140 Last Admin: 03/21/18 11:02 Dose: 20 mg Lactulose (Lactulose) 20 gm PO DAILY [facility] Last Admin: 03/22/18 08:00 Dose: 20 gm Levetiracetam (Keppra) 500 mg PO BID [facility] Last Admin: 03/22/18 08:02 Dose: 500 mg Lisinopril (Zestril) 10 mg PO BID [facility] Last Admin: 03/22/18 08:01 Dose: 10 mg Lorazepam (Ativan) 0.5 mg SLOW IVP BID PRN PRN Reason: Agitation Last Admin: 03/22/18 03:48 Dose: 0.5 mg Magnesium Hydroxide (Milk Of Magnesium) 30 ml PO DAILYPRN PRN PRN Reason: Constipation Melatonin (Melatonin) 3 mg PO HS PRN PRN Reason: Insomnia Mineral Oil/White Petrolatum (Lacri-Lube Ointment) 0 gm EA EYE PRN PRN PRN Reason: Dry Eyes Ondansetron HCl (Zofran) 4 mg IVP Q6H PRN PRN Reason: Nausea/Vomiting Ondansetron HCl (Zofran Odt) 4 mg SL Q6H PRN PRN Reason: Nausea/Vomiting Last Admin: 03/17/18 21:56 Dose: 4 mg Senna/Docusate Sodium (Senokot S) 1 tab PO BID [facility] Last Admin: 03/22/18 08:02 Dose: 1 tab Sodium Chloride (Flush - Normal Saline) 10 ml IVF PRN PRN PRN Reason: Saline Flush Last Admin: 03/18/18 01:43 Dose: 10 ml Thiamine HCl (Thiamine) 100 mg PO DAILY [facility] Last Admin: 03/22/18 08:01 Dose: 100 mg Tramadol HCl (Ultram) 50 mg PO Q6H PRN PRN Reason: Pain Last Admin: 03/21/18 15:43 Dose: 50 mg
[2018-03-22] MEDS: Insulin Glargine 5 UNITS in Pre-Filled Syringe 1 EACH SC SCH (08:30)
[2018-03-22] MEDS ORDERED: Potassium Chloride 20 MEQ TAB PO SCH (09:00)
[2018-03-22] MEDS: Lisinopril 20 MG TAB PO SCH ×2 (09:24→20:53)
[2018-03-22] MEDS: Folic Acid 1 MG TAB PO SCH (09:24)
[2018-03-22] MEDS ORDERED: Haloperidol Lactate 5 MG/ML VIAL IM SCH (20:45)
[2018-03-22] MEDS: Lorazepam 1 MG TAB PO PRN (21:47)
[2018-03-23] MEDS ORDERED: Lorazepam 0.5 MG TAB PO SCH (01:15)
[2018-03-23] MEDS ORDERED: traZODone HCl 50 MG TAB PO SCH (01:15)
[2018-03-23] MEDS: cloNIDine 0.1 MG TAB PO PRN (05:26)
[2018-03-23] MEDS: traMADol HCl 50 MG TAB PO PRN (05:27)
[2018-03-23] MEDS: Acetaminophen 325 MG TAB PO PRN (05:27)
[2018-03-23] MEDS: Senokot S 8.6-50 MG TAB PO SCH ×3 (05:29→22:15)
[2018-03-23] MEDS: Insulin Glargine 5 UNITS in Pre-Filled Syringe 1 EACH SC SCH ×3 (05:29→22:15)
[2018-03-23 07:47] LABS: #Basophils 0.1 thou/uL (0.0-0.2); #Eosinphils 0.1 thou/uL (0.0-0.7); #Monocytes 0.8 thou/uL (0.11-0.59); #Neutrophils 3.4 thou/uL (1.40-6.50); %Basophils 1.1 % (0.0-1.0); %Eosinophils 1.6 % (0.0-10.0); %Lymphocytes 40.3 % (21.0-51.0); %Monocytes 10.3 % (0.0-10.0); %Neutrophils 46.7 % (42.0-75.0); Hemoglobin 12.3 g/dL (12.0-16.0); Mean Corpuscular HGB CONC 34.7 g/dL (32.0-36.0); Mean Corpuscular Hemoglobin 36.1 pg (27.0-31.0); Mean Platelet Volume 9.1 fL (7.4-10.4); Platelet Count 79 thou/uL (130-400); RBC Distribution Width 12.5 % (11.5-14.5); Red Blood Cell (RBC) Count 3.39 mill/uL (4.20-5.40); White Blood Cell (WBC) Count 7.3 thou/uL (4.8-10.8)
[2018-03-23 08:05] LABS: Anion Gap 9 mmol/L (10-20); BUN (Urea Nitrogen) 7 mg/dL (9.8-20.1); Calc. Creatinine Clearance 82 mL/min (70-130); Calcium 8.3 mg/dL (7.8-10.44); Carbon Dioxide 23 mmol/L (22-29); Chloride 103 mmol/L (98-107); Estimated GFR-MDRD Greater than 90; Glucose 119 mg/dL (70-105); Potassium 3.3 mmol/L (3.5-5.1); Sodium 132 mmol/L (136-145)
--- NOTE | 2018-03-23 08:22 | PDOC.PN ---
- Subjective Encounter Start Date: 03/23/18 Encounter Start Time: 08:20 Subjective: sleepy and would not participate in exam - Objective MAR Reviewed: Yes Vital Signs & Weight: Vital Signs (12 hours) Temp Pulse Resp BP BP Pulse Ox 03/23/18 08:08 98.0 F 55 L 16 95/52 L 94 L 03/23/18 07:51 100.2 F H 72 24 H 03/23/18 05:26 183/84 H 03/23/18 04:00 100.2 F H 72 24 H 208/82 H 97 03/22/18 21:00 149/75 H 03/22/18 20:53 149/75 H Weight Admit Weight 138 lb 10.732 oz Weight 120 lb 6.4 oz Most Recent Monitor Data Heart Rate from ECG 72 NIBP 138/59 NIBP BP-Mean 89 Respiration from ECG 21 SpO2 95 I&O: 03/22/18 03/23/18 03/24/18 06:59 06:59 06:59 Intake Total 1480 1000 Balance 1480 1000 Result Diagrams: 03/23/18 07:18 03/23/18 07:18 Additional Labs: Accuchecks 03/23/18 03/22/18 03/22/18 05:08 20:53 16:53 POC Glucose 122 H 105 107 03/22/18 10:33 POC Glucose 107 Microbiology 03/15/18 09:53 Urine powell catheter Urine Culture - Final NO GROWTH AT 48 HOURS 03/15/18 08:44 Venous blood - Right Hand Blood Culture - Final NO GROWTH IN 5 DAYS 03/15/18 08:39 Venous blood - Left Hand Blood Culture - Final NO GROWTH IN 5 DAYS Phys Exam - Physical Examination Constitutional: NAD HEENT: PERRLA, moist MMs, sclera anicteric, oral pharynx no lesions Neck: no nodes, no JVD, supple, full ROM Respiratory: no wheezing, no rales, no rhonchi, clear to auscultation bilateral Cardiovascular: RRR, no significant murmur Gastrointestinal: soft, non-tender, no distention, positive bowel sounds Musculoskeletal: no edema, pulses present Neurological: non-focal, normal sensation left hemiparesis Psychiatric: normal affect Deviation from normal: orineted to self Skin: no rash Dx/Plan (1) Fever Code(s): R50.9 - FEVER, UNSPECIFIED Status: Acute (2) Intracranial hemorrhage Code(s): I62.9 - NONTRAUMATIC INTRACRANIAL HEMORRHAGE, UNSPECIFIED Status: Acute Comment: Frequent neuro checks.Stable.s/p EVD and removal.[place] to be reomoved by NS 03/26/18 (3) Cerebral edema Code(s): G93.6 - CEREBRAL EDEMA Status: Acute Comment: s/p EVD and them removal (4) Midline shift of brain due to hematoma Code(s): G93.9 - DISORDER OF BRAIN, UNSPECIFIED Status: Acute Comment: s/p Craniotomy and evacuation and EVD (5) Hypokalemia Code(s): E87.6 - HYPOKALEMIA Status: Acute Comment: replace and recheck (6) Status post craniotomy Status: Acute (7) Abnormal LFTs Code(s): R94.5 - ABNORMAL RESULTS OF LIVER FUNCTION STUDIES Status: Chronic Comment: trending down.monitor. mervin due to Chr Hep C and ETOH liver disease (8) Alcohol abuse Code(s): F10.10 - ALCOHOL ABUSE, UNCOMPLICATED Status: Chronic (9) Chronic hepatitis C Code(s): B18.2 - CHRONIC VIRAL HEPATITIS C Status: Chronic Qualifiers: Hepatic coma status: without hepatic coma Qualified Code(s): B18.2 - Chronic viral hepatitis C (10) Cocaine abuse Code(s): F14.10 - COCAINE ABUSE, UNCOMPLICATED Status: Chronic (11) Macrocytosis Code(s): D75.89 - OTHER SPECIFIED DISEASES OF BLOOD AND BLOOD-FORMING ORGANS Status: Chronic (12) Thrombocytopenia Code(s): D69.6 - THROMBOCYTOPENIA, UNSPECIFIED Status: Chronic Comment: Improved after transfusion recently.Dut to Chronic liver disease mervin.Monitor (13) Respiratory insufficiency/failure Code(s): R06.89 - OTHER ABNORMALITIES OF BREATHING Status: Resolved (14) Dysphagia as late effect of cerebrovascular accident (CVA) Code(s): I69.391 - DYSPHAGIA FOLLOWING CEREBRAL INFARCTION Status: Acute Comment: improved with improved cognition.approved fro regular diet by MARKETING EDITOR (15) Aspiration pneumonia Code(s): J69.0 - PNEUMONITIS DUE TO INHALATION OF FOOD AND VOMIT Status: Suspected Qualifiers: Aspiration pneumonia type: due to gastric secretions Comment: on Zosyn - Plan fever again-check blood & urine Cx.CXR.hold off new abx for now. -: previuos Cx -ve so far.doppler US Neg 5/5 for DVT LE -: replace Potassium -: minimize sedation. -: awaiting placement.Pt uninsured.HD stable * . Review of Systems - Review of Systems Other: can not be obtained due to pt's non participation - Medications/Allergies Allergies/Adverse Reactions: Allergies Allergy/AdvReac Type Severity Reaction Status Date / Time No Known Drug Allergies Allergy Verified 03/09/18 17:54 Medications: Current Medications Acetaminophen (Tylenol) 650 mg PO Q6H PRN PRN Reason: Pain Last Admin: 03/23/18 05:27 Dose: 650 mg Albuterol/Ipratropium (Duoneb) 3 ml NEB Q4H PRN PRN Reason: SOB Carvedilol (Coreg) 6.25 mg PO BID-[facility] Last Admin: 03/22/18 17:31 Dose: 6.25 mg Clonidine (Catapres) 0.1 mg PO Q4H PRN PRN Reason: Systolic BP > 160 Last Admin: 03/23/18 05:26 Dose: 0.1 mg Cyanocobalamin (Vitamin B-12) 1,000 mcg PO DAILY [facility] Last Admin: 03/22/18 08:00 Dose: 1,000 mcg Dextrose/Water (Dextrose 50%) 25 gm SLOW IVP PRN PRN PRN Reason: Hypoglycemia Docusate Sodium (Colace) 100 mg PO BIDPRN PRN PRN Reason: Constipation Last Admin: 03/10/18 08:40 Dose: 100 mg Famotidine (Pepcid) 20 mg PO BID [facility] Last Admin: 03/22/18 20:54 Dose: 20 mg Folic Acid (Folvite) 1 mg PO DAILY [facility] Last Admin: 03/22/18 09:24 Dose: 1 mg Glucagon (Glucagon) 1 mg IM PRN PRN PRN Reason: Hypoglycemia Hydralazine HCl (Apresoline) 10 mg SLOW IVP Q4H PRN PRN Reason: SBP>160 Last Admin: 03/20/18 23:49 Dose: 10 mg Dextrose/Water (D5w) 1,000 mls @ 0 mls/hr IV .Q0M PRN; As Directed PRN Reason: Hypoglycemia Insulin Glargine 5 units/ (Miscellaneous Medication) 0.05 mls @ 0 mls/hr SC BID [facility] Last Admin: 03/23/18 05:29 Dose: Not Given Insulin Human Regular (Humulin R) 0 units SC .MODERATE SLIDING SC PRN PRN Reason: Moderate Correctional Scale Last Admin: 03/17/18 22:08 Dose: 2 unit Iron/Minerals/Multivitamins (Theragran M) 1 tab PO DAILY [facility] Last Admin: 03/22/18 08:01 Dose: 1 tab Labetalol HCl (Normodyne) 20 mg SLOW IVP Q15MIN PRN PRN Reason: Sbp Greater Than 140 Last Admin: 03/21/18 11:02 Dose: 20 mg Lactulose (Lactulose) 20 gm PO DAILY [facility] Last Admin: 03/22/18 08:00 Dose: 20 gm Levetiracetam (Keppra) 500 mg PO BID [facility] Last Admin: 03/22/18 20:53 Dose: 500 mg Lisinopril (Zestril) 20 mg PO BID [facility] Last Admin: 03/22/18 20:53 Dose: 20 mg Lorazepam (Ativan) 1 mg PO TID PRN PRN Reason: Anxiety Last Admin: 03/22/18 21:47 Dose: 1 mg Magnesium Hydroxide (Milk Of Magnesium) 30 ml PO DAILYPRN PRN PRN Reason: Constipation Melatonin (Melatonin) 3 mg PO HS PRN PRN Reason: Insomnia Mineral Oil/White Petrolatum (Lacri-Lube Ointment) 0 gm EA EYE PRN PRN PRN Reason: Dry Eyes Ondansetron HCl (Zofran) 4 mg IVP Q6H PRN PRN Reason: Nausea/Vomiting Ondansetron HCl (Zofran Odt) 4 mg SL Q6H PRN PRN Reason: Nausea/Vomiting Last Admin: 03/17/18 21:56 Dose: 4 mg Potassium Chloride (K-Dur) 40 meq PO ONE [facility] Senna/Docusate Sodium (Senokot S) 1 tab PO BID [facility] Last Admin: 03/23/18 05:29 Dose: Not Given Sodium Chloride (Flush - Normal Saline) 10 ml IVF PRN PRN PRN Reason: Saline Flush Last Admin: 03/18/18 01:43 Dose: 10 ml Thiamine HCl (Thiamine) 100 mg PO DAILY [facility] Last Admin: 03/22/18 08:01 Dose: 100 mg Tramadol HCl (Ultram) 50 mg PO Q6H PRN PRN Reason: Pain Last Admin: 03/23/18 05:27 Dose: 50 mg
[2018-03-23] MEDS ORDERED: Potassium Chloride 20 MEQ TAB PO SCH (09:00)
--- NOTE | 2018-03-23 10:43 | RAD ---
CHEST 1 VIEW: HISTORY: Fever. Aspiration pneumonia. COMPARISON: Chest radiograph 03/15/18. FINDINGS: Lungs are without focal airspace consolidation, pneumothorax, or effusion. Improvement of pulmonary edema. Weighted feeding tube has been removed. IMPRESSION: No acute intrathoracic abnormality. Interval improvement in pulmonary edema. POS: [facility]
[2018-03-23] MEDS: Lisinopril 20 MG TAB PO SCH ×2 (11:56→22:14)
[2018-03-23] MEDS: Famotidine 20 MG TAB PO SCH ×2 (11:56→22:14)
[2018-03-23] MEDS: Carvedilol 6.25 MG TAB PO SCH ×2 (11:57→18:40)
[2018-03-23] MEDS: Multivitamin W/ Minerals 1 TAB PO SCH (11:57)
[2018-03-23] MEDS: Folic Acid 1 MG TAB PO SCH (11:57)
[2018-03-23] MEDS: levETIRAcetam 500 MG TAB PO SCH ×2 (11:57→22:14)
[2018-03-23] MEDS: Cyanocobalamin (Vitamin B-12) 1,000 MCG TAB PO SCH (11:57)
[2018-03-23] MEDS: Melatonin 3 MG TAB PO PRN (22:13)
[2018-03-24 06:08] LABS: Anion Gap 7 mmol/L (10-20); BUN (Urea Nitrogen) 14 mg/dL (9.8-20.1); Calc. Creatinine Clearance 92 mL/min (70-130); Calcium 8.8 mg/dL (7.8-10.44); Carbon Dioxide 27 mmol/L (22-29); Chloride 101 mmol/L (98-107); Estimated GFR-MDRD Greater than 90; Glucose 117 mg/dL (70-105); Potassium 3.9 mmol/L (3.5-5.1); Sodium 131 mmol/L (136-145)
[2018-03-24 06:45] LABS: #Basophils 0.1 thou/uL (0.0-0.2); #Eosinphils 0.2 thou/uL (0.0-0.7); #Lymphocytes 2.6 thou/uL (1.20-3.40); #Monocytes 0.7 thou/uL (0.11-0.59); #Neutrophils 2.9 thou/uL (1.40-6.50); %Basophils 1.5 % (0.0-1.0); %Eosinophils 2.5 % (0.0-10.0); %Lymphocytes 40.7 % (21.0-51.0); %Monocytes 10.1 % (0.0-10.0); %Neutrophils 45.2 % (42.0-75.0); Hemoglobin 12.9 g/dL (12.0-16.0); Mean Corpuscular Hemoglobin 36.8 pg (27.0-31.0); Mean Platelet Volume 9.5 fL (7.4-10.4); PLT Morphology Comment Appears Decreased; Platelet Count 68 thou/uL (130-400); RBC Distribution Width 12.5 % (11.5-14.5); RBC Morphology Normal; White Blood Cell (WBC) Count 6.5 thou/uL (4.8-10.8)
[2018-03-24] MEDS: Lisinopril 20 MG TAB PO SCH ×2 (08:47→21:56)
[2018-03-24] MEDS: levETIRAcetam 500 MG TAB PO SCH ×2 (08:47→21:56)
[2018-03-24] MEDS: Carvedilol 6.25 MG TAB PO SCH ×2 (08:47→16:53)
[2018-03-24] MEDS: Folic Acid 1 MG TAB PO SCH (08:48)
[2018-03-24] MEDS: Potassium Chloride 20 MEQ TAB PO SCH (08:48)
[2018-03-24] MEDS: Multivitamin W/ Minerals 1 TAB PO SCH (08:48)
[2018-03-24] MEDS: Senokot S 8.6-50 MG TAB PO SCH ×2 (08:48→21:56)
[2018-03-24] MEDS: Famotidine 20 MG TAB PO SCH ×2 (08:48→21:55)
[2018-03-24] MEDS: Cyanocobalamin (Vitamin B-12) 1,000 MCG TAB PO SCH (08:48)
[2018-03-24] MEDS: Insulin Glargine 5 UNITS in Pre-Filled Syringe 1 EACH SC SCH ×2 (08:55→22:25)
--- NOTE | 2018-03-24 13:39 | PDOC.PN ---
- Subjective Encounter Start Date: 03/24/18 Encounter Start Time: 13:38 Subjective: remains confused.moving all over & out of bed despite L paresis -: no acute events overnight - Objective MAR Reviewed: Yes Vital Signs & Weight: Vital Signs (12 hours) Temp Pulse Resp BP BP BP Pulse Ox 03/24/18 13:00 160/74 H 03/24/18 11:55 97.8 F 61 16 160/74 H 98 03/24/18 09:00 154/81 H 03/24/18 08:47 154/81 H 03/24/18 08:00 98.8 F 60 16 154/81 H 95 03/24/18 07:57 98.0 F 03/24/18 05:56 56 L 144/76 H Weight Admit Weight 138 lb 10.732 oz Weight 120 lb 11.2 oz Most Recent Monitor Data Heart Rate from ECG 72 NIBP 138/59 NIBP BP-Mean 89 Respiration from ECG 21 SpO2 95 I&O: 03/23/18 03/24/18 03/25/18 06:59 06:59 06:59 Intake Total 1480 840 120 Balance 1480 840 120 Result Diagrams: 03/24/18 05:20 03/24/18 05:20 Additional Labs: Accuchecks 03/24/18 03/24/18 03/23/18 10:52 05:22 21:11 POC Glucose 127 H 108 168 H 03/23/18 16:42 POC Glucose 132 H Microbiology 03/15/18 09:53 Urine powell catheter Urine Culture - Final NO GROWTH AT 48 HOURS 03/15/18 08:44 Venous blood - Right Hand Blood Culture - Final NO GROWTH IN 5 DAYS 03/15/18 08:39 Venous blood - Left Hand Blood Culture - Final NO GROWTH IN 5 DAYS 03/23/18 08:32 Venous blood - Right Arm Blood Culture - Preliminary Specimen has been received and culture in progress. No Growth to date. 03/23/18 08:31 Venous blood - Left Hand Blood Culture - Preliminary Specimen has been received and culture in progress. No Growth to date. Phys Exam - Physical Examination Constitutional: NAD lying naked w legs over bed rails on side HEENT: PERRLA, moist MMs, sclera anicteric, oral pharynx no lesions Neck: no JVD Respiratory: no wheezing, no rales, no rhonchi, clear to auscultation bilateral Cardiovascular: RRR, no significant murmur, no rub Gastrointestinal: soft, non-tender, no distention, positive bowel sounds Musculoskeletal: no edema, pulses present Neurological: non-focal, normal sensation confused.does not follow commands,not moving left leg oriented to self only Skin: no rash Dx/Plan (1) Fever Code(s): R50.9 - FEVER, UNSPECIFIED Status: Acute Comment: Following Cx. No clear source of infection.Afebrile for now.No indication for Antibiotics Finished Zosyn on 03/22/18 for possible aspiration PNA (2) Intracranial hemorrhage Code(s): I62.9 - NONTRAUMATIC INTRACRANIAL HEMORRHAGE, UNSPECIFIED Status: Acute Comment: Frequent neuro checks.Stable.s/p EVD and removal.Kirsten to be reomoved by NS 03/26/18 (3) Cerebral edema Code(s): G93.6 - CEREBRAL EDEMA Status: Acute Comment: s/p EVD and them removal (4) Midline shift of brain due to hematoma Code(s): G93.9 - DISORDER OF BRAIN, UNSPECIFIED Status: Acute Comment: s/p Craniotomy and evacuation and EVD (5) Hypokalemia Code(s): E87.6 - HYPOKALEMIA Status: Acute Comment: replace and recheck (6) Status post craniotomy Status: Acute (7) Abnormal LFTs Code(s): R94.5 - ABNORMAL RESULTS OF LIVER FUNCTION STUDIES Status: Chronic Comment: trending down.monitor. mervin due to Chr Hep C and ETOH liver disease (8) Alcohol abuse Code(s): F10.10 - ALCOHOL ABUSE, UNCOMPLICATED Status: Chronic (9) Chronic hepatitis C Code(s): B18.2 - CHRONIC VIRAL HEPATITIS C Status: Chronic Qualifiers: Hepatic coma status: without hepatic coma Qualified Code(s): B18.2 - Chronic viral hepatitis C (10) Cocaine abuse Code(s): F14.10 - COCAINE ABUSE, UNCOMPLICATED Status: Chronic (11) Macrocytosis Code(s): D75.89 - OTHER SPECIFIED DISEASES OF BLOOD AND BLOOD-FORMING ORGANS Status: Chronic (12) Thrombocytopenia Code(s): D69.6 - THROMBOCYTOPENIA, UNSPECIFIED Status: Chronic Comment: Improved after transfusion recently.Dut to Chronic liver disease mervin.Monitor (13) Respiratory insufficiency/failure Code(s): R06.89 - OTHER ABNORMALITIES OF BREATHING Status: Resolved (14) Dysphagia as late effect of cerebrovascular accident (CVA) Code(s): I69.391 - DYSPHAGIA FOLLOWING CEREBRAL INFARCTION Status: Acute Comment: improved with improved cognition.approved fro regular diet by PATTERNMAKER METAL (15) Aspiration pneumonia Code(s): J69.0 - PNEUMONITIS DUE TO INHALATION OF FOOD AND VOMIT Status: Suspected Qualifiers: Aspiration pneumonia type: due to gastric secretions Comment: on Zosyn - Plan PT/OT, out of bed/ambulate, DVT proph w/SCDs HD stable.cont meds as below. -: BP controlled.cont Coreg,lisinopril. -: stop daily labs.cont daily potassium supplements -: Awaiting placement-uninsured.delayed DC due to this -: fall risk-precautions instituted * . Review of Systems - Review of Systems Other: unobtainable as pt does not follow commands or answer any W Qs.She remains confused and fidgety,asking for drink non stop - Medications/Allergies Allergies/Adverse Reactions: Allergies Allergy/AdvReac Type Severity Reaction Status Date / Time No Known Drug Allergies Allergy Verified 03/09/18 17:54 Medications: Current Medications Acetaminophen (Tylenol) 650 mg PO Q6H PRN PRN Reason: Pain Last Admin: 03/23/18 05:27 Dose: 650 mg Albuterol/Ipratropium (Duoneb) 3 ml NEB Q4H PRN PRN Reason: SOB Carvedilol (Coreg) 6.25 mg PO BID-[facility] Last Admin: 03/24/18 08:47 Dose: 6.25 mg Clonidine (Catapres) 0.1 mg PO Q4H PRN PRN Reason: Systolic BP > 160 Last Admin: 03/23/18 05:26 Dose: 0.1 mg Cyanocobalamin (Vitamin B-12) 1,000 mcg PO DAILY [facility] Last Admin: 03/24/18 08:48 Dose: 1,000 mcg Dextrose/Water (Dextrose 50%) 25 gm SLOW IVP PRN PRN PRN Reason: Hypoglycemia Docusate Sodium (Colace) 100 mg PO BIDPRN PRN PRN Reason: Constipation Last Admin: 03/10/18 08:40 Dose: 100 mg Famotidine (Pepcid) 20 mg PO BID [facility] Last Admin: 03/24/18 08:48 Dose: 20 mg Folic Acid (Folvite) 1 mg PO DAILY [facility] Last Admin: 03/24/18 08:48 Dose: 1 mg Glucagon (Glucagon) 1 mg IM PRN PRN PRN Reason: Hypoglycemia Hydralazine HCl (Apresoline) 10 mg SLOW IVP Q4H PRN PRN Reason: SBP>160 Last Admin: 03/20/18 23:49 Dose: 10 mg Dextrose/Water (D5w) 1,000 mls @ 0 mls/hr IV .Q0M PRN; As Directed PRN Reason: Hypoglycemia Insulin Glargine 5 units/ (Miscellaneous Medication) 0.05 mls @ 0 mls/hr SC BID [facility] Last Admin: 03/24/18 08:55 Dose: Not Given Insulin Human Regular (Humulin R) 0 units SC .MODERATE SLIDING SC PRN PRN Reason: Moderate Correctional Scale Last Admin: 03/17/18 22:08 Dose: 2 unit Iron/Minerals/Multivitamins (Theragran M) 1 tab PO DAILY [facility] Last Admin: 03/24/18 08:48 Dose: 1 tab Labetalol HCl (Normodyne) 20 mg SLOW IVP Q15MIN PRN PRN Reason: Sbp Greater Than 140 Last Admin: 03/21/18 11:02 Dose: 20 mg Lactulose (Lactulose) 20 gm PO DAILY [facility] Last Admin: 03/24/18 08:48 Dose: Not Given Levetiracetam (Keppra) 500 mg PO BID [facility] Last Admin: 03/24/18 08:47 Dose: 500 mg Lisinopril (Zestril) 20 mg PO BID [facility] Last Admin: 03/24/18 08:47 Dose: 20 mg Lorazepam (Ativan) 1 mg PO TID PRN PRN Reason: Anxiety Last Admin: 03/24/18 00:00 Dose: 1 mg Magnesium Hydroxide (Milk Of Magnesium) 30 ml PO DAILYPRN PRN PRN Reason: Constipation Melatonin (Melatonin) 3 mg PO HS PRN PRN Reason: Insomnia Last Admin: 03/23/18 22:13 Dose: 3 mg Mineral Oil/White Petrolatum (Lacri-Lube Ointment) 0 gm EA EYE PRN PRN PRN Reason: Dry Eyes Ondansetron HCl (Zofran) 4 mg IVP Q6H PRN PRN Reason: Nausea/Vomiting Ondansetron HCl (Zofran Odt) 4 mg SL Q6H PRN PRN Reason: Nausea/Vomiting Last Admin: 03/17/18 21:56 Dose: 4 mg Potassium Chloride (K-Dur) 40 meq PO QAM-WM [facility] Last Admin: 03/24/18 08:48 Dose: 40 meq Senna/Docusate Sodium (Senokot S) 1 tab PO BID [facility] Last Admin: 03/24/18 08:48 Dose: 1 tab Sodium Chloride (Flush - Normal Saline) 10 ml IVF PRN PRN PRN Reason: Saline Flush Last Admin: 03/18/18 01:43 Dose: 10 ml Thiamine HCl (Thiamine) 100 mg PO DAILY [facility] Last Admin: 03/24/18 08:48 Dose: 100 mg Tramadol HCl (Ultram) 50 mg PO Q6H PRN PRN Reason: Pain Last Admin: 03/23/18 05:27 Dose: 50 mg
[2018-03-24] MEDS: Melatonin 3 MG TAB PO PRN (21:55)
[2018-03-24] MEDS: Lorazepam 1 MG TAB PO PRN ×2 (21:57)
[2018-03-25] MEDS: traMADol HCl 50 MG TAB PO PRN ×2 (01:50→16:34)
[2018-03-25] MEDS: Lisinopril 20 MG TAB PO SCH ×2 (08:21→22:09)
[2018-03-25] MEDS: Potassium Chloride 20 MEQ TAB PO SCH (08:22)
[2018-03-25] MEDS: Famotidine 20 MG TAB PO SCH ×2 (08:22→22:09)
[2018-03-25] MEDS: Senokot S 8.6-50 MG TAB PO SCH (08:22)
[2018-03-25] MEDS: levETIRAcetam 500 MG TAB PO SCH ×2 (08:22→22:09)
[2018-03-25] MEDS: Carvedilol 6.25 MG TAB PO SCH ×2 (08:22→16:34)
[2018-03-25] MEDS: Cyanocobalamin (Vitamin B-12) 1,000 MCG TAB PO SCH (08:22)
[2018-03-25] MEDS: Folic Acid 1 MG TAB PO SCH (08:23)
[2018-03-25] MEDS: Insulin Glargine 5 UNITS in Pre-Filled Syringe 1 EACH SC SCH (08:23)
[2018-03-25] MEDS: Multivitamin W/ Minerals 1 TAB PO SCH (08:23)
--- NOTE | 2018-03-25 19:16 | PRG ---
DATE OF SERVICE: 03/25/2018 SUBJECTIVE: The patient is seen and examined at bedside. She has multiple nonspecific complaints to offer. Her appetite is radical. She is a gxqrahwgg-fh-qldarb patient. OBJECTIVE: VITAL SIGNS: Blood pressure is 154/69, pulse is 60, respiratory rate is 16, O2 saturation is 98% on room air. HEENT: Atraumatic, normocephalic. Eyes PERRLA. Conjunctivae pinkish. Oral mucosa is moist. NECK: Supple. No lymphadenopathy. RESPIRATORY: No rales, wheezing. Lungs are clear to auscultation. GASTROINTESTINAL: Soft, nontender, nondistended. EXTREMITIES: No edema. Pulses normal. NEUROLOGIC: She is somewhat confused, does not follow my commands. She is nonfocal. ASSESSMENT: 1. Fever, resolved. Apparently, she was on Zosyn until 03/22/2018 for possible aspiration pneumonia . Her temperature is down now. 2. Intracranial hemorrhage, acute, status post EVD and removal of kam will be done on the . 3. Cerebral edema. 4. Hypokalemia. 5. Status post craniotomy. 6. Elevated liver function tests, likely due to chronic hepatitis C and alcoholic liver disease. 7. Alcohol abuse. 8. Chronic hepatitis C. 9. Cocaine abuse. 10. Thrombocytopenia and macrocytic anemia most likely related to toxic effect of cocaine and alcoho l. 11. Aspiration pneumonia, status post finished a course of antibiotic. PLAN: Continue PT and OT. Continue current regimen with medications. We are waiting for the place ent of uninsured and that is the reason why her discharge is delayed. Continue fall risk precautions .
[2018-03-25] MEDS: Melatonin 3 MG TAB PO PRN (22:09)
[2018-03-25] MEDS: Lorazepam 1 MG TAB PO PRN (22:10)
[2018-03-26] MEDS: Temazepam 15 MG CAP PO PRN (01:11)
[2018-03-26] MEDS: Insulin Glargine 5 UNITS in Pre-Filled Syringe 1 EACH SC SCH ×3 (03:21→20:36)
[2018-03-26] MEDS: Senokot S 8.6-50 MG TAB PO SCH ×3 (03:22→20:36)
[2018-03-26] MEDS: cloNIDine 0.1 MG TAB PO PRN (03:59)
[2018-03-26] MEDS: traMADol HCl 50 MG TAB PO PRN ×2 (04:00→09:45)
[2018-03-26 07:16] LABS: #Basophils 0.1 thou/uL (0.0-0.2); #Eosinphils 0.3 thou/uL (0.0-0.7); #Lymphocytes 3.4 thou/uL (1.20-3.40); #Monocytes 0.7 thou/uL (0.11-0.59); #Neutrophils 2.5 thou/uL (1.40-6.50); %Basophils 1.6 % (0.0-1.0); %Eosinophils 3.6 % (0.0-10.0); %Lymphocytes 48.4 % (21.0-51.0); %Monocytes 10.3 % (0.0-10.0); %Neutrophils 36.1 % (42.0-75.0); Hemoglobin 14.6 g/dL (12.0-16.0); Mean Corpuscular HGB CONC 33.7 g/dL (32.0-36.0); Mean Corpuscular Hemoglobin 35.9 pg (27.0-31.0); Mean Platelet Volume 10.5 fL (7.4-10.4); Platelet Count 53 thou/uL (130-400); RBC Distribution Width 12.5 % (11.5-14.5); Red Blood Cell (RBC) Count 4.05 mill/uL (4.20-5.40)
[2018-03-26 07:32] LABS: Anion Gap 10 mmol/L (10-20); BUN (Urea Nitrogen) 10 mg/dL (9.8-20.1); Calc. Creatinine Clearance 87 mL/min (70-130); Calcium 9.6 mg/dL (7.8-10.44); Carbon Dioxide 25 mmol/L (22-29); Chloride 101 mmol/L (98-107); Estimated GFR-MDRD 80; Glucose 148 mg/dL (70-105); Potassium 4.2 mmol/L (3.5-5.1); Sodium 132 mmol/L (136-145)
[2018-03-26] MEDS: Lisinopril 20 MG TAB PO SCH ×2 (09:42→20:40)
[2018-03-26] MEDS: Cyanocobalamin (Vitamin B-12) 1,000 MCG TAB PO SCH (09:44)
[2018-03-26] MEDS: Folic Acid 1 MG TAB PO SCH (09:44)
[2018-03-26] MEDS: Famotidine 20 MG TAB PO SCH ×2 (09:45→20:35)
[2018-03-26] MEDS: Potassium Chloride 20 MEQ TAB PO SCH (09:45)
[2018-03-26] MEDS: levETIRAcetam 500 MG TAB PO SCH ×2 (09:45→20:36)
[2018-03-26] MEDS: Carvedilol 6.25 MG TAB PO SCH ×2 (09:45→17:26)
[2018-03-26] MEDS: Multivitamin W/ Minerals 1 TAB PO SCH (09:45)
--- NOTE | 2018-03-26 10:58 | PDOC.PN ---
- Subjective Encounter Start Date: 03/26/18 Encounter Start Time: 10:56 Patient seen and examined, no new issues per nursing staff overnight, no family at bedside, all questions answered. - Objective Vital Signs & Weight: Vital Signs (12 hours) Temp Pulse Resp BP BP Pulse Ox 03/26/18 09:45 143/76 H 03/26/18 09:42 143/76 H 03/26/18 08:00 98.2 F 64 16 112/71 95 03/26/18 04:30 67 118/73 03/26/18 03:59 194/93 H Weight Admit Weight 138 lb 10.732 oz Weight 111 lb Most Recent Monitor Data Heart Rate from ECG 72 NIBP 138/59 NIBP BP-Mean 89 Respiration from ECG 21 SpO2 95 I&O: 03/25/18 03/26/18 03/27/18 06:59 06:59 06:59 Intake Total 1480 1200 Balance 1480 1200 Result Diagrams: 03/26/18 06:41 03/26/18 06:41 Additional Labs: Accuchecks 03/26/18 03/26/18 03/25/18 10:42 05:51 16:42 POC Glucose 131 H 151 H 114 H 03/25/18 11:25 POC Glucose 140 H Phys Exam - Physical Examination Constitutional: NAD HEENT: PERRLA, moist MMs, sclera anicteric Neck: no nodes, no JVD, supple Respiratory: no wheezing, no rales, no rhonchi Cardiovascular: RRR, no significant murmur, no rub Gastrointestinal: soft, non-tender, no distention Musculoskeletal: no edema, pulses present Neurological: non-focal, normal sensation, moves all 4 limbs Psychiatric: normal affect, A&O x 3 Dx/Plan (1) Intracranial hemorrhage Code(s): I62.9 - NONTRAUMATIC INTRACRANIAL HEMORRHAGE, UNSPECIFIED Status: Acute Comment: Frequent neuro checks.Stable.s/p EVD and removal.Kam to be reomoved by NS 03/26/18 (2) Status post craniotomy Status: Acute (3) Alcohol abuse Code(s): F10.10 - ALCOHOL ABUSE, UNCOMPLICATED Status: Chronic (4) Chronic hepatitis C Code(s): B18.2 - CHRONIC VIRAL HEPATITIS C Status: Chronic Qualifiers: Hepatic coma status: without hepatic coma Qualified Code(s): B18.2 - Chronic viral hepatitis C (5) Macrocytosis Code(s): D75.89 - OTHER SPECIFIED DISEASES OF BLOOD AND BLOOD-FORMING ORGANS Status: Chronic - Plan * kam removed * will check B12 and folate levels * BP stable * monitor daily labs for now * continue PT/OT * pending rehab placement, uninsured * case and plan d/w patient at length, she understands and agrees with this plan
[2018-03-26] MEDS: Lorazepam 1 MG TAB PO PRN (20:37)
[2018-03-27] MEDS: Temazepam 15 MG CAP PO PRN ×2 (02:19→21:33)
[2018-03-27] MEDS ORDERED: Carvedilol 6.25 MG TAB PO SCH (07:53)
[2018-03-27] MEDS: Famotidine 20 MG TAB PO SCH ×2 (08:33→21:33)
[2018-03-27] MEDS: Cyanocobalamin (Vitamin B-12) 1,000 MCG TAB PO SCH (08:33)
[2018-03-27] MEDS: Folic Acid 1 MG TAB PO SCH (08:33)
[2018-03-27] MEDS: Lisinopril 20 MG TAB PO SCH ×2 (08:33→21:31)
[2018-03-27] MEDS: Multivitamin W/ Minerals 1 TAB PO SCH (08:34)
[2018-03-27] MEDS: levETIRAcetam 500 MG TAB PO SCH ×2 (08:34→21:31)
[2018-03-27] MEDS: Carvedilol 3.125 MG TAB PO SCH ×2 (08:34→16:45)
[2018-03-27] MEDS: Potassium Chloride 20 MEQ TAB PO SCH (08:34)
[2018-03-27] MEDS: Senokot S 8.6-50 MG TAB PO SCH ×2 (08:34→21:33)
[2018-03-27] MEDS: Insulin Glargine 5 UNITS in Pre-Filled Syringe 1 EACH SC SCH ×2 (08:34→21:34)
--- NOTE | 2018-03-27 10:24 | PDOC.PN ---
- Subjective Encounter Start Date: 03/27/18 Encounter Start Time: 10:22 Patient seen and examined, currently sleepy and states she has no new issues, per nursing staff the patient was apparently very agitated earlier this morning and thrashing around. - Objective Vital Signs & Weight: Vital Signs (12 hours) Temp Pulse Resp BP BP Pulse Ox 03/27/18 09:00 142/82 H 03/27/18 08:33 142/82 H 03/27/18 07:15 96.9 F L 68 20 142/82 H 94 L 03/27/18 04:21 98.2 F 54 L 18 134/76 98 03/27/18 00:12 97.8 F 51 L 16 93/63 94 L Weight Admit Weight 138 lb 10.732 oz Weight 103 lb 6.4 oz Most Recent Monitor Data Heart Rate from ECG 72 NIBP 138/59 NIBP BP-Mean 89 Respiration from ECG 21 SpO2 95 I&O: 03/26/18 03/27/18 03/28/18 06:59 06:59 06:59 Intake Total 1200 450 Balance 1200 450 Result Diagrams: 03/26/18 06:41 03/26/18 06:41 Additional Labs: Accuchecks 03/27/18 03/26/18 03/26/18 06:27 20:27 16:56 POC Glucose 94 138 H 139 H 03/26/18 10:42 POC Glucose 131 H Phys Exam - Physical Examination Constitutional: NAD HEENT: PERRLA, moist MMs, sclera anicteric Neck: no nodes, no JVD, supple Respiratory: no wheezing, no rales, no rhonchi Cardiovascular: RRR, no significant murmur, no rub Gastrointestinal: soft, non-tender, no distention Musculoskeletal: no edema, pulses present not following commands Deviation from normal: not following commands Skin: no rash, normal turgor Dx/Plan (1) Intracranial hemorrhage Code(s): I62.9 - NONTRAUMATIC INTRACRANIAL HEMORRHAGE, UNSPECIFIED Status: Acute Comment: Frequent neuro checks.Stable.s/p EVD and removal.Kirst[place] to be reomoved by NS 03/26/18 (2) Status post craniotomy Status: Acute (3) Alcohol abuse Code(s): F10.10 - ALCOHOL ABUSE, UNCOMPLICATED Status: Chronic (4) Chronic hepatitis C Code(s): B18.2 - CHRONIC VIRAL HEPATITIS C Status: Chronic Qualifiers: Hepatic coma status: without hepatic coma Qualified Code(s): B18.2 - Chronic viral hepatitis C (5) Macrocytosis Code(s): D75.89 - OTHER SPECIFIED DISEASES OF BLOOD AND BLOOD-FORMING ORGANS Status: Chronic - Plan * BP meds adjusted, SBP in the 80s yesterday * no other changes in plan of care for now * pending placement, patient has been denied form multiple different facilities * no family at bedside.
[2018-03-27] MEDS: traMADol HCl 50 MG TAB PO PRN (13:52)
[2018-03-27] MEDS: Acetaminophen 325 MG TAB PO PRN (16:45)
[2018-03-27] MEDS: Melatonin 3 MG TAB PO PRN (21:31)
[2018-03-28] MEDS: Lorazepam 1 MG TAB PO PRN (00:16)
[2018-03-28 00:53] LABS: Anion Gap 11 mmol/L (10-20); BUN (Urea Nitrogen) 12 mg/dL (9.8-20.1); Calc. Creatinine Clearance 70 mL/min (70-130); Carbon Dioxide 25 mmol/L (22-29); Chloride 104 mmol/L (98-107); Estimated GFR-MDRD Greater than 90; Glucose 121 mg/dL (70-105); Sodium 135 mmol/L (136-145)
[2018-03-28 00:54] LABS: Platelet Count 25 thou/uL (130-400)
[2018-03-28 01:09] LABS: Band 2 % (5-11); Eosinophils 1 % (0-10); Hemoglobin 16.2 g/dL (12.0-16.0); Lymphocytes 44 % (21-51); MDiff Complete? YES; Macrocytosis SLIGHT = 6-15 cells (100X) (0-5/hpf); Mean Corpuscular HGB CONC 33.8 g/dL (32.0-36.0); Mean Corpuscular Hemoglobin 35.8 pg (27.0-31.0); Mean Platelet Volume 11.2 fL (7.4-10.4); Monocytes 8 % (0-10); Neutrophil 44 % (42-75); PLT Morphology Comment Appears Decreased; RBC Distribution Width 12.6 % (11.5-14.5); Red Blood Cell (RBC) Count 4.52 mill/uL (4.20-5.40); White Blood Cell (WBC) Count 7.3 thou/uL (4.8-10.8)
[2018-03-28] MEDS: Famotidine 20 MG TAB PO SCH ×2 (08:26→20:27)
[2018-03-28] MEDS ORDERED: ALPRAZolam 0.5 MG TAB PO PRN (08:30)
[2018-03-28] MEDS: Senokot S 8.6-50 MG TAB PO SCH ×2 (09:05→20:27)
[2018-03-28] MEDS: Multivitamin W/ Minerals 1 TAB PO SCH (09:05)
[2018-03-28] MEDS: Cyanocobalamin (Vitamin B-12) 1,000 MCG TAB PO SCH (09:05)
[2018-03-28] MEDS: Potassium Chloride 20 MEQ TAB PO SCH (09:05)
[2018-03-28] MEDS: levETIRAcetam 500 MG TAB PO SCH ×2 (09:05→20:27)
[2018-03-28] MEDS: Carvedilol 3.125 MG TAB PO SCH ×2 (09:06→17:40)
[2018-03-28] MEDS: Acetaminophen 325 MG TAB PO PRN (09:06)
[2018-03-28] MEDS: Lisinopril 20 MG TAB PO SCH ×2 (09:06→20:20)
[2018-03-28] MEDS: Folic Acid 1 MG TAB PO SCH (09:06)
[2018-03-28] MEDS: Insulin Glargine 5 UNITS in Pre-Filled Syringe 1 EACH SC SCH ×2 (09:19→20:32)
[2018-03-28] MEDS ORDERED: Haloperidol Lactate 5 MG/ML VIAL ONE (10:02)
--- NOTE | 2018-03-28 10:07 | PDOC.PN ---
- Subjective Encounter Start Date: 03/28/18 Encounter Start Time: 10:05 Patient seen and examined, yelling out loud, not cooperative, stating she wants to take her clothes off. No family at bedside. - Objective Vital Signs & Weight: Vital Signs (12 hours) Temp Pulse Resp BP BP BP Pulse Ox 03/28/18 09:06 162/94 H 03/28/18 08:00 97.3 F L 69 18 162/94 H 97 03/28/18 04:58 97.4 F L 73 16 167/82 H 94 L 03/28/18 00:15 97.4 F L 63 18 166/104 H 97 Weight Admit Weight 138 lb 10.732 oz Weight 100 lb 8 oz Most Recent Monitor Data Heart Rate from ECG 72 NIBP 138/59 NIBP BP-Mean 89 Respiration from ECG 21 SpO2 95 I&O: 03/27/18 03/28/18 03/29/18 06:59 06:59 06:59 Intake Total 450 510 Balance 450 510 Result Diagrams: 03/28/18 00:31 03/28/18 00:31 Additional Labs: Accuchecks 03/28/18 03/27/18 03/27/18 04:59 21:41 16:57 POC Glucose 110 111 H 116 H 03/27/18 10:49 POC Glucose 100 Phys Exam - Physical Examination confused, yelling HEENT: PERRLA, moist MMs, sclera anicteric Neck: no nodes, no JVD, supple Respiratory: no wheezing, no rales, no rhonchi Cardiovascular: no significant murmur, no rub tachycardic Gastrointestinal: soft, non-tender, no distention, positive bowel sounds Musculoskeletal: no edema, pulses present Neurological: non-focal, moves all 4 limbs Deviation from normal: not answering questions properly yelling Skin: normal turgor Deviation from normal: perineal rash Dx/Plan (1) Intracranial hemorrhage Code(s): I62.9 - NONTRAUMATIC INTRACRANIAL HEMORRHAGE, UNSPECIFIED Status: Acute Comment: Frequent neuro checks.Stable.s/p EVD and removal.[place] to be reomoved by NS 03/26/18 (2) Status post craniotomy Status: Acute (3) Alcohol abuse Code(s): F10.10 - ALCOHOL ABUSE, UNCOMPLICATED Status: Chronic (4) Chronic hepatitis C Code(s): B18.2 - CHRONIC VIRAL HEPATITIS C Status: Chronic Qualifiers: Hepatic coma status: without hepatic coma Qualified Code(s): B18.2 - Chronic viral hepatitis C (5) Macrocytosis Code(s): D75.89 - OTHER SPECIFIED DISEASES OF BLOOD AND BLOOD-FORMING ORGANS Status: Chronic (6) Agitation Status: Acute - Plan * DC benzos, will give haldol IM for now * placement issues as unclear where to discharge ptaient * called listed contact Teri (daughter) at [phone], she states she is the MPOA requests that the patient be made DNR/DNI, will move to med surg today, daughter states that she is waiting to see if the patient can get disability insurance, has a phone appointment set up for April 13, 2018 * no other changes in plan of care for now, case and plan d/w patient's daughter at length, they understand and agree with this plan.
[2018-03-28] MEDS: Haloperidol Lactate 5 MG/ML VIAL IM PRN (15:57)
[2018-03-28] MEDS: Temazepam 15 MG CAP PO PRN (20:20)
[2018-03-29] MEDS: cloNIDine 0.1 MG TAB PO PRN (04:47)
[2018-03-29] MEDS: Lisinopril 20 MG TAB PO SCH ×2 (08:13→21:14)
[2018-03-29] MEDS: Carvedilol 3.125 MG TAB PO SCH ×2 (08:14→16:58)
[2018-03-29] MEDS: levETIRAcetam 500 MG TAB PO SCH ×2 (08:16→21:14)
[2018-03-29] MEDS: Folic Acid 1 MG TAB PO SCH (08:19)
[2018-03-29] MEDS: Cyanocobalamin (Vitamin B-12) 1,000 MCG TAB PO SCH (08:20)
[2018-03-29] MEDS: Senokot S 8.6-50 MG TAB PO SCH ×2 (08:21→21:14)
[2018-03-29] MEDS: Multivitamin W/ Minerals 1 TAB PO SCH (08:21)
[2018-03-29] MEDS: Famotidine 20 MG TAB PO SCH ×2 (08:21→20:59)
[2018-03-29] MEDS: Potassium Chloride 20 MEQ TAB PO SCH (08:21)
[2018-03-29] MEDS: Insulin Glargine 5 UNITS in Pre-Filled Syringe 1 EACH SC SCH ×3 (08:22→21:17)
--- NOTE | 2018-03-29 13:25 | PDOC.PN ---
- Subjective Encounter Start Date: 03/29/18 Encounter Start Time: 13:24 Patient seen and examined, no new changes in status, sister at bedside, all questions answered. - Objective Resuscitation Status: Resuscitation Status DNR:Do Not Resuscitate Vital Signs & Weight: Vital Signs (12 hours) Temp Pulse Resp BP BP Pulse Ox 03/29/18 12:01 154/89 H 03/29/18 11:37 99.0 F 84 16 154/89 H 99 03/29/18 09:00 184/82 H 03/29/18 08:13 184/82 H 03/29/18 08:02 99.3 F 105 H 16 184/82 H 97 03/29/18 08:00 99.3 F 105 H 16 97 03/29/18 05:00 154/101 H 03/29/18 04:47 154/101 H 03/29/18 04:19 97.4 F L 82 18 177/99 H 98 Weight Admit Weight 138 lb 10.732 oz Weight 113 lb 1 oz Most Recent Monitor Data Heart Rate from ECG 72 NIBP 138/59 NIBP BP-Mean 89 Respiration from ECG 21 SpO2 95 I&O: 03/28/18 03/29/18 03/30/18 06:59 06:59 06:59 Intake Total 510 120 360 Balance 510 120 360 Result Diagrams: 03/28/18 00:31 03/28/18 00:31 Additional Labs: Accuchecks 03/29/18 03/29/18 03/28/18 11:38 04:56 20:33 POC Glucose 221 H 169 H 185 H 03/28/18 16:12 POC Glucose 143 H Phys Exam - Physical Examination Constitutional: NAD HEENT: PERRLA, moist MMs, sclera anicteric Neck: no nodes, no JVD, supple Respiratory: no wheezing, no rales, no rhonchi Cardiovascular: RRR, no significant murmur, no rub Gastrointestinal: soft, non-tender, no distention, positive bowel sounds Musculoskeletal: no edema, pulses present Neurological: normal sensation, moves all 4 limbs Skin: no rash, normal turgor Dx/Plan (1) Intracranial hemorrhage Code(s): I62.9 - NONTRAUMATIC INTRACRANIAL HEMORRHAGE, UNSPECIFIED Status: Acute Comment: Frequent neuro checks.Stable.s/p EVD and removal.Kirsten to be reomoved by NS 5/14/18 (2) Status post craniotomy Status: Acute (3) Alcohol abuse Code(s): F10.10 - ALCOHOL ABUSE, UNCOMPLICATED Status: Chronic (4) Chronic hepatitis C Code(s): B18.2 - CHRONIC VIRAL HEPATITIS C Status: Chronic Qualifiers: Hepatic coma status: without hepatic coma Qualified Code(s): B18.2 - Chronic viral hepatitis C (5) Macrocytosis Code(s): D75.89 - OTHER SPECIFIED DISEASES OF BLOOD AND BLOOD-FORMING ORGANS Status: Chronic (6) Agitation Status: Acute - Plan * pending insurance and then placement * no changes in plan for now * haldol PRN for agitation, will add librium if patient has any further psychotic episodes * case and plan d/w patient's sister at length, she understands and agrees with this plan
[2018-03-29] MEDS: Acetaminophen 325 MG TAB PO PRN (16:58)
[2018-03-30 05:07] LABS: #Eosinphils 0.3 thou/uL (0.0-0.7); #Lymphocytes 3.4 thou/uL (1.20-3.40); #Neutrophils 2.7 thou/uL (1.40-6.50); %Basophils 0.6 % (0.0-1.0); %Eosinophils 3.5 % (0.0-10.0); %Lymphocytes 46.7 % (21.0-51.0); %Monocytes 13.1 % (0.0-10.0); %Neutrophils 36.1 % (42.0-75.0); Anion Gap 12 mmol/L (10-20); BUN (Urea Nitrogen) 26 mg/dL (9.8-20.1); Calc. Creatinine Clearance 61 mL/min (70-130); Calcium 10.8 mg/dL (7.8-10.44); Carbon Dioxide 24 mmol/L (22-29); Chloride 103 mmol/L (98-107); Estimated GFR-MDRD 70; Glucose 161 mg/dL (70-105); Hemoglobin 15.6 g/dL (12.0-16.0); Mean Corpuscular HGB CONC 32.8 g/dL (32.0-36.0); Mean Corpuscular Hemoglobin 34.6 pg (27.0-31.0); Mean Platelet Volume 12.1 fL (7.4-10.4); Platelet Count 24 thou/uL (130-400); RBC Distribution Width 12.5 % (11.5-14.5); Sodium 134 mmol/L (136-145); White Blood Cell (WBC) Count 7.4 thou/uL (4.8-10.8)
[2018-03-30] MEDS: Carvedilol 3.125 MG TAB PO SCH ×2 (09:02→17:38)
[2018-03-30] MEDS: Senokot S 8.6-50 MG TAB PO SCH ×2 (09:02→20:31)
[2018-03-30] MEDS: Insulin Glargine 5 UNITS in Pre-Filled Syringe 1 EACH SC SCH ×2 (09:02→20:31)
[2018-03-30] MEDS: levETIRAcetam 500 MG TAB PO SCH ×2 (09:02→22:03)
[2018-03-30] MEDS: Cyanocobalamin (Vitamin B-12) 1,000 MCG TAB PO SCH (09:02)
[2018-03-30] MEDS: Famotidine 20 MG TAB PO SCH ×2 (09:03→20:31)
[2018-03-30] MEDS: Lisinopril 20 MG TAB PO SCH ×2 (09:03→20:31)
[2018-03-30] MEDS: Potassium Chloride 20 MEQ TAB PO SCH (09:03)
[2018-03-30] MEDS: Folic Acid 1 MG TAB PO SCH (09:03)
[2018-03-30] MEDS: Multivitamin W/ Minerals 1 TAB PO SCH (09:03)
--- NOTE | 2018-03-30 10:50 | PDOC.PN ---
- Subjective Encounter Start Date: 03/30/18 Encounter Start Time: 10:49 Patient seen and examined, no changes in the last 24 hours. No family at bedside. - Objective Resuscitation Status: Resuscitation Status DNR:Do Not Resuscitate Vital Signs & Weight: Vital Signs (12 hours) Temp Pulse Resp BP BP Pulse Ox 03/30/18 08:00 98.3 F 71 16 98 03/30/18 07:33 98.3 F 71 16 136/63 98 03/30/18 04:00 97.9 F 72 16 139/79 139/79 98 03/30/18 00:00 98.9 F 73 16 119/75 119/75 99 Weight Admit Weight 138 lb 10.732 oz Weight 113 lb 1 oz Most Recent Monitor Data Heart Rate from ECG 72 NIBP 138/59 NIBP BP-Mean 89 Respiration from ECG 21 SpO2 95 I&O: 03/29/18 03/30/18 03/31/18 06:59 06:59 06:59 Intake Total 120 820 Balance 120 820 Result Diagrams: 03/30/18 04:30 03/30/18 04:30 Additional Labs: Accuchecks 03/30/18 03/29/18 03/29/18 04:37 21:17 11:38 POC Glucose 154 H 299 H 221 H Phys Exam - Physical Examination Constitutional: NAD HEENT: PERRLA, moist MMs, sclera anicteric Neck: no nodes, no JVD, supple, full ROM Respiratory: no wheezing, no rales, no rhonchi Cardiovascular: RRR, no significant murmur, no rub Gastrointestinal: soft, non-tender, no distention, positive bowel sounds Musculoskeletal: no edema, pulses present Neurological: non-focal, moves all 4 limbs Psychiatric: normal affect Deviation from normal: not oriented, AAO to person and place only Skin: no rash, normal turgor Dx/Plan (1) Intracranial hemorrhage Code(s): I62.9 - NONTRAUMATIC INTRACRANIAL HEMORRHAGE, UNSPECIFIED Status: Acute Comment: Frequent neuro checks.Stable.s/p EVD and removal.[place] to be reomoved by NS 03/26/18 (2) Status post craniotomy Status: Acute (3) Alcohol abuse Code(s): F10.10 - ALCOHOL ABUSE, UNCOMPLICATED Status: Chronic (4) Chronic hepatitis C Code(s): B18.2 - CHRONIC VIRAL HEPATITIS C Status: Chronic Qualifiers: Hepatic coma status: without hepatic coma Qualified Code(s): B18.2 - Chronic viral hepatitis C (5) Macrocytosis Code(s): D75.89 - OTHER SPECIFIED DISEASES OF BLOOD AND BLOOD-FORMING ORGANS Status: Chronic (6) Agitation Status: Acute - Plan * continue current plan * pending placement * no family at bedside.
[2018-03-30] MEDS: Insulin Regular 300 UNITS/3 ML VIAL SC PRN (17:39)
[2018-03-31] MEDS: Carvedilol 3.125 MG TAB PO SCH ×2 (07:44→16:11)
[2018-03-31] MEDS: Potassium Chloride 20 MEQ TAB PO SCH (07:44)
[2018-03-31] MEDS: Lisinopril 20 MG TAB PO SCH ×2 (07:44→20:16)
[2018-03-31] MEDS: Cyanocobalamin (Vitamin B-12) 1,000 MCG TAB PO SCH (07:45)
[2018-03-31] MEDS: Multivitamin W/ Minerals 1 TAB PO SCH (07:45)
[2018-03-31] MEDS: levETIRAcetam 500 MG TAB PO SCH ×2 (07:45→20:20)
[2018-03-31] MEDS: Folic Acid 1 MG TAB PO SCH (07:45)
[2018-03-31] MEDS: Insulin Glargine 5 UNITS in Pre-Filled Syringe 1 EACH SC SCH ×2 (07:45→20:16)
[2018-03-31] MEDS: Famotidine 20 MG TAB PO SCH ×2 (07:45→20:16)
[2018-03-31] MEDS: Senokot S 8.6-50 MG TAB PO SCH ×2 (07:48→20:17)
--- NOTE | 2018-03-31 12:10 | PDOC.PN ---
- Subjective Encounter Start Date: 03/31/18 Encounter Start Time: 12:09 Patient seen and examined, no new issues or complaints, no family at bedside, all questions answered. - Objective Resuscitation Status: Resuscitation Status DNR:Do Not Resuscitate Vital Signs & Weight: Vital Signs (12 hours) Temp Pulse Resp BP BP Pulse Ox 03/31/18 08:00 98.7 F 77 16 96 03/31/18 07:57 98.7 F 77 16 106/61 98 03/31/18 07:44 94/57 L Weight Admit Weight 138 lb 10.732 oz Weight 113 lb 1 oz Most Recent Monitor Data Heart Rate from ECG 72 NIBP 138/59 NIBP BP-Mean 89 Respiration from ECG 21 SpO2 95 I&O: 03/30/18 03/31/18 04/01/18 06:59 06:59 06:59 Intake Total 820 240 240 Balance 820 240 240 Result Diagrams: 03/30/18 04:30 03/30/18 04:30 Additional Labs: Accuchecks 03/31/18 03/31/18 03/30/18 11:28 05:31 19:43 POC Glucose 162 H 159 H 186 H 03/30/18 16:30 POC Glucose 210 H Phys Exam - Physical Examination Constitutional: NAD HEENT: PERRLA, moist MMs, sclera anicteric Neck: no nodes, no JVD, supple, full ROM Respiratory: no wheezing, no rales, no rhonchi Cardiovascular: RRR, no significant murmur, no rub Gastrointestinal: soft, non-tender, no distention, positive bowel sounds Musculoskeletal: no edema, pulses present Neurological: non-focal, normal sensation, moves all 4 limbs Psychiatric: normal affect, A&O x 3 Skin: no rash, normal turgor Dx/Plan (1) Intracranial hemorrhage Code(s): I62.9 - NONTRAUMATIC INTRACRANIAL HEMORRHAGE, UNSPECIFIED Status: Acute Comment: Frequent neuro checks.Stable.s/p EVD and removal.Kirsten to be reomoved by NS 03/26/18 (2) Status post craniotomy Status: Acute (3) Alcohol abuse Code(s): F10.10 - ALCOHOL ABUSE, UNCOMPLICATED Status: Chronic (4) Chronic hepatitis C Code(s): B18.2 - CHRONIC VIRAL HEPATITIS C Status: Chronic Qualifiers: Hepatic coma status: without hepatic coma Qualified Code(s): B18.2 - Chronic viral hepatitis C (5) Macrocytosis Code(s): D75.89 - OTHER SPECIFIED DISEASES OF BLOOD AND BLOOD-FORMING ORGANS Status: Chronic (6) Agitation Status: Acute - Plan * continue current plan * no changes * pending placement * no family at bedside.
[2018-04-01 00:26] LABS: Hemoglobin 14.9 g/dL (12.0-16.0); Mean Corpuscular HGB CONC 34.2 g/dL (32.0-36.0); Mean Platelet Volume 11.9 fL (7.4-10.4); Platelet Count 13 thou/uL (130-400); RBC Distribution Width 12.3 % (11.5-14.5); Red Blood Cell (RBC) Count 4.15 mill/uL (4.20-5.40); White Blood Cell (WBC) Count 7.1 thou/uL (4.8-10.8)
[2018-04-01 00:36] LABS: Anion Gap 10 mmol/L (10-20); BUN (Urea Nitrogen) 28 mg/dL (9.8-20.1); Calc. Creatinine Clearance 67 mL/min (70-130); Calcium 10.2 mg/dL (7.8-10.44); Carbon Dioxide 26 mmol/L (22-29); Chloride 104 mmol/L (98-107); Estimated GFR-MDRD 78; Glucose 151 mg/dL (70-105); Potassium 5.3 mmol/L (3.5-5.1); Sodium 135 mmol/L (136-145)
[2018-04-01 00:43] LABS: Band 4 % (5-11); Eosinophils 4 % (0-10); Lymphocytes 53 % (21-51); MDiff Complete? YES; Monocytes 10 % (0-10); Neutrophil 27 % (42-75); PLT Morphology Comment Appears Decreased
[2018-04-01] MEDS: Lisinopril 20 MG TAB PO SCH ×2 (08:24→20:10)
[2018-04-01] MEDS: Famotidine 20 MG TAB PO SCH ×2 (08:26→20:08)
[2018-04-01] MEDS: levETIRAcetam 500 MG TAB PO SCH ×2 (08:26→20:10)
[2018-04-01] MEDS: Senokot S 8.6-50 MG TAB PO SCH ×2 (08:26→20:11)
[2018-04-01] MEDS: Multivitamin W/ Minerals 1 TAB PO SCH (08:26)
[2018-04-01] MEDS: Cyanocobalamin (Vitamin B-12) 1,000 MCG TAB PO SCH (08:26)
[2018-04-01] MEDS: Carvedilol 3.125 MG TAB PO SCH ×2 (08:26→17:30)
[2018-04-01] MEDS: Potassium Chloride 20 MEQ TAB PO SCH ×2 (08:26→08:29)
[2018-04-01] MEDS: Folic Acid 1 MG TAB PO SCH (08:27)
--- NOTE | 2018-04-01 08:36 | PDOC.PN ---
- Subjective Encounter Start Date: 04/01/18 Encounter Start Time: 08:35 Patient seen and examined, no new issues or complaints, all questions answered. - Objective Resuscitation Status: Resuscitation Status DNR:Do Not Resuscitate Vital Signs & Weight: Vital Signs (12 hours) Temp Pulse Resp BP BP Pulse Ox 04/01/18 08:24 144/71 H 04/01/18 07:30 98.7 F 71 16 144/71 H 100 Weight Admit Weight 138 lb 10.732 oz Weight 113 lb 1 oz Most Recent Monitor Data Heart Rate from ECG 72 NIBP 138/59 NIBP BP-Mean 89 Respiration from ECG 21 SpO2 95 I&O: 03/31/18 04/01/18 04/02/18 06:59 06:59 06:59 Intake Total 240 840 Balance 240 840 Result Diagrams: 04/01/18 00:10 04/01/18 00:10 Additional Labs: Accuchecks 04/01/18 03/31/18 03/31/18 05:15 19:29 16:53 POC Glucose 131 H 178 H 161 H 03/31/18 11:28 POC Glucose 162 H Phys Exam - Physical Examination Constitutional: NAD HEENT: PERRLA, moist MMs, sclera anicteric Neck: no nodes, no JVD, supple, full ROM Respiratory: no wheezing, no rales, no rhonchi Cardiovascular: RRR, no significant murmur, no rub Gastrointestinal: soft, non-tender, no distention, positive bowel sounds Musculoskeletal: no edema, pulses present Neurological: non-focal, normal sensation, moves all 4 limbs Psychiatric: normal affect, A&O x 3 Skin: no rash, normal turgor Dx/Plan (1) Intracranial hemorrhage Code(s): I62.9 - NONTRAUMATIC INTRACRANIAL HEMORRHAGE, UNSPECIFIED Status: Acute Comment: Frequent neuro checks.Stable.s/p EVD and removal.[place] to be reomoved by NS 03/26/18 (2) Status post craniotomy Status: Acute (3) Alcohol abuse Code(s): F10.10 - ALCOHOL ABUSE, UNCOMPLICATED Status: Chronic (4) Chronic hepatitis C Code(s): B18.2 - CHRONIC VIRAL HEPATITIS C Status: Chronic Qualifiers: Hepatic coma status: without hepatic coma Qualified Code(s): B18.2 - Chronic viral hepatitis C (5) Macrocytosis Code(s): D75.89 - OTHER SPECIFIED DISEASES OF BLOOD AND BLOOD-FORMING ORGANS Status: Chronic (6) Agitation Status: Acute - Plan * Pending placement * DC plans once placement arranged * no other changes in plan * cont w/ Haldol PRN for agitation * plan d/w patient, no family at bedside.
[2018-04-01] MEDS: Insulin Glargine 5 UNITS in Pre-Filled Syringe 1 EACH SC SCH ×2 (08:46→20:08)
[2018-04-01] MEDS: Acetaminophen 325 MG TAB PO PRN (14:22)
[2018-04-01] MEDS: Insulin Regular 300 UNITS/3 ML VIAL SC PRN (18:27)
[2018-04-01] MEDS: Temazepam 15 MG CAP PO PRN (20:10)
[2018-04-02] MEDS: Folic Acid 1 MG TAB PO SCH (08:17)
[2018-04-02] MEDS: Cyanocobalamin (Vitamin B-12) 1,000 MCG TAB PO SCH (08:17)
[2018-04-02] MEDS: Multivitamin W/ Minerals 1 TAB PO SCH (08:17)
[2018-04-02] MEDS: levETIRAcetam 500 MG TAB PO SCH ×2 (08:17→20:26)
[2018-04-02] MEDS: Potassium Chloride 20 MEQ TAB PO SCH (08:17)
[2018-04-02] MEDS: Lisinopril 20 MG TAB PO SCH ×2 (08:17→20:27)
[2018-04-02] MEDS: Senokot S 8.6-50 MG TAB PO SCH ×2 (08:17→20:26)
[2018-04-02] MEDS: Carvedilol 3.125 MG TAB PO SCH ×2 (08:18→18:07)
[2018-04-02] MEDS: Famotidine 20 MG TAB PO SCH ×2 (08:18→20:26)
[2018-04-02] MEDS: Insulin Glargine 5 UNITS in Pre-Filled Syringe 1 EACH SC SCH ×2 (08:23→20:26)
--- NOTE | 2018-04-02 12:43 | PDOC.PN ---
- Subjective Encounter Start Date: 04/02/18 Encounter Start Time: 14:00 Subjective: Patient minimally responsive, non vocal for me. No changes overnight per -: nursing. - Objective Resuscitation Status: Resuscitation Status DNR:Do Not Resuscitate MAR Reviewed: Yes Vital Signs & Weight: Vital Signs (12 hours) Temp Pulse Resp BP BP Pulse Ox 04/02/18 08:17 128/69 04/02/18 08:00 98.1 F 63 18 97 04/02/18 07:57 98.1 F 63 18 128/69 97 Weight Admit Weight 138 lb 10.732 oz Weight 114 lb 2 oz Most Recent Monitor Data Heart Rate from ECG 72 NIBP 138/59 NIBP BP-Mean 89 Respiration from ECG 21 SpO2 95 I&O: 04/01/18 04/02/18 04/03/18 06:59 06:59 06:59 Intake Total 840 960 Balance 840 960 Result Diagrams: 04/01/18 00:10 04/01/18 00:10 Additional Labs: Accuchecks 04/02/18 04/02/18 04/02/18 12:02 11:59 04:54 POC Glucose 123 H 144 H 110 04/01/18 04/01/18 04/01/18 19:55 16:41 11:00 POC Glucose 174 H 183 H 199 H Phys Exam - Physical Examination Constitutional: NAD HEENT: moist MMs Respiratory: no wheezing, no rales, no rhonchi Cardiovascular: RRR Gastrointestinal: soft, positive bowel sounds Neurological: non-focal, moves all 4 limbs Deviation from normal: non-vocal, sleepy but arousable Dx/Plan (1) Intracranial hemorrhage Code(s): I62.9 - NONTRAUMATIC INTRACRANIAL HEMORRHAGE, UNSPECIFIED Status: Resolved Comment: s/p EVD and removal. Awaiting placement (2) Status post craniotomy Status: Resolved (3) Agitation Status: Acute Comment: Haldol prn (4) Alcohol abuse Code(s): F10.10 - ALCOHOL ABUSE, UNCOMPLICATED Status: Chronic (5) Chronic hepatitis C Code(s): B18.2 - CHRONIC VIRAL HEPATITIS C Status: Chronic Qualifiers: Hepatic coma status: without hepatic coma Qualified Code(s): B18.2 - Chronic viral hepatitis C (6) Macrocytosis Code(s): D75.89 - OTHER SPECIFIED DISEASES OF BLOOD AND BLOOD-FORMING ORGANS Status: Chronic (7) Thrombocytopenia Code(s): D69.6 - THROMBOCYTOPENIA, UNSPECIFIED Status: Chronic Comment: Likely due to alcoholic cirrhosis. Platelet count dropping again. Spoke with Danielle Mantilla with Heme/Onc. She recommended transfusing above 30,000 and starting steroids, 1mg/kg then weaning down as tolerated to keep platelets up and prevent another bleed. - Plan cont current plan of care, PT/OT Arranging placement. * . - Discharge Day Encounter end time: 14:15
[2018-04-02] MEDS: Acetaminophen 325 MG TAB PO PRN ×2 (12:55→20:26)
[2018-04-02] MEDS ORDERED: predniSONE 50 MG TAB PO SCH (13:30)
[2018-04-02] MEDS: Insulin Regular 300 UNITS/3 ML VIAL SC PRN (18:08)
[2018-04-02] MEDS: Melatonin 3 MG TAB PO PRN (20:26)
[2018-04-03] MEDS: Haloperidol Lactate 5 MG/ML VIAL IM PRN ×2 (03:19→14:42)
[2018-04-03 05:04] LABS: #Lymphocytes 1.4 thou/uL (1.20-3.40); #Monocytes 0.2 thou/uL (0.11-0.59); #Neutrophils 2.4 thou/uL (1.40-6.50); %Basophils 0.4 % (0.0-1.0); %Eosinophils 0.5 % (0.0-10.0); %Lymphocytes 34.8 % (21.0-51.0); %Neutrophils 59.4 % (42.0-75.0); Hemoglobin 14.1 g/dL (12.0-16.0); Mean Corpuscular HGB CONC 33.3 g/dL (32.0-36.0); Mean Corpuscular Hemoglobin 34.6 pg (27.0-31.0); Mean Platelet Volume 12.3 fL (7.4-10.4); Platelet Count 18 thou/uL (130-400); RBC Distribution Width 12.2 % (11.5-14.5); Red Blood Cell (RBC) Count 4.07 mill/uL (4.20-5.40); White Blood Cell (WBC) Count 4.1 thou/uL (4.8-10.8)
[2018-04-03 05:11] LABS: Anion Gap 8 mmol/L (10-20); BUN (Urea Nitrogen) 19 mg/dL (9.8-20.1); Calc. Creatinine Clearance 85 mL/min (70-130); Calcium 9.4 mg/dL (7.8-10.44); Carbon Dioxide 24 mmol/L (22-29); Chloride 105 mmol/L (98-107); Estimated GFR-MDRD Greater than 90; Glucose 203 mg/dL (70-105); Potassium 4.3 mmol/L (3.5-5.1); Sodium 133 mmol/L (136-145)
[2018-04-03] MEDS: Lisinopril 20 MG TAB PO SCH ×2 (07:39→21:14)
[2018-04-03] MEDS: levETIRAcetam 500 MG TAB PO SCH ×2 (07:39→21:13)
[2018-04-03] MEDS: Cyanocobalamin (Vitamin B-12) 1,000 MCG TAB PO SCH (07:39)
[2018-04-03] MEDS: Folic Acid 1 MG TAB PO SCH (07:39)
[2018-04-03] MEDS: Multivitamin W/ Minerals 1 TAB PO SCH (07:39)
[2018-04-03] MEDS: Famotidine 20 MG TAB PO SCH ×2 (07:39→21:14)
[2018-04-03] MEDS: Potassium Chloride 20 MEQ TAB PO SCH (07:39)
[2018-04-03] MEDS: predniSONE 50 MG TAB PO SCH (07:40)
[2018-04-03] MEDS: Senokot S 8.6-50 MG TAB PO SCH ×2 (07:40→21:15)
[2018-04-03] MEDS: Carvedilol 3.125 MG TAB PO SCH ×2 (07:40→17:03)
--- NOTE | 2018-04-03 09:46 | PDOC.PN ---
- Subjective Encounter Start Date: 04/03/18 Encounter Start Time: 11:10 Subjective: Patient reports aching all over. Confused and confabulating when -: asked questions. No changes overnight. - Objective Resuscitation Status: Resuscitation Status DNR:Do Not Resuscitate MAR Reviewed: Yes Vital Signs & Weight: Vital Signs (12 hours) Temp Pulse Resp BP Pulse Ox 04/03/18 08:00 97.3 F L 59 L 16 98 04/03/18 07:19 97.3 F L 59 L 16 112/64 98 04/03/18 05:07 66 18 153/87 H 96 Weight Admit Weight 138 lb 10.732 oz Weight 114 lb 4 oz Most Recent Monitor Data Heart Rate from ECG 72 NIBP 138/59 NIBP BP-Mean 89 Respiration from ECG 21 SpO2 95 I&O: 04/02/18 04/03/18 04/04/18 06:59 06:59 06:59 Intake Total 960 1780 Balance 960 1780 Result Diagrams: 04/03/18 03:42 04/03/18 03:42 Additional Labs: Accuchecks 04/03/18 04/02/18 04/02/18 03:49 19:20 16:16 POC Glucose 212 H 248 H 193 H 04/02/18 04/02/18 12:02 11:59 POC Glucose 123 H 144 H Phys Exam - Physical Examination Constitutional: NAD HEENT: moist MMs Respiratory: no wheezing, no rales, no rhonchi Cardiovascular: RRR, no significant murmur Gastrointestinal: soft, positive bowel sounds Musculoskeletal: no edema Neurological: moves all 4 limbs Lymphatic: no nodes Psychiatric: normal affect Deviation from normal: oriented to person only Dx/Plan (1) Intracranial hemorrhage Code(s): I62.9 - NONTRAUMATIC INTRACRANIAL HEMORRHAGE, UNSPECIFIED Status: Resolved Comment: s/p EVD and removal. Awaiting placement (2) Status post craniotomy Status: Resolved (3) Agitation Status: Acute Comment: Haldol prn (4) Alcohol abuse Code(s): F10.10 - ALCOHOL ABUSE, UNCOMPLICATED Status: Chronic (5) Chronic hepatitis C Code(s): B18.2 - CHRONIC VIRAL HEPATITIS C Status: Chronic Qualifiers: Hepatic coma status: without hepatic coma Qualified Code(s): B18.2 - Chronic viral hepatitis C (6) Macrocytosis Code(s): D75.89 - OTHER SPECIFIED DISEASES OF BLOOD AND BLOOD-FORMING ORGANS Status: Chronic (7) Thrombocytopenia Code(s): D69.6 - THROMBOCYTOPENIA, UNSPECIFIED Status: Chronic Comment: Likely due to alcoholic cirrhosis. Platelet count dropping again. Spoke with Danielle Mantilla with Heme/Onc. She recommended transfusing above 30,000 and starting steroids, 1mg/kg then weaning down as tolerated to keep platelets up and prevent another bleed. - Plan cont current plan of care, PT/OT, DVT proph w/SCDs Transfuse 2 more units platelets, still low this AM at 17,000. Will try to -: get above 30,000 * . - Discharge Day Encounter end time: 11:20
[2018-04-03] MEDS: Insulin Glargine 5 UNITS in Pre-Filled Syringe 1 EACH SC SCH ×2 (10:22→21:13)
--- NOTE | 2018-04-03 12:11 | PDOC.EVN ---
Event Note - Event Note Event Note: To Whom it may Concern, My name is Dr. Fer العلي. I am caring for Debra Arrieta ( 1960). She is currently admitted to [facility] for an Intraparenchymal hemorrhage. 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 She knows who she is but doesn't know where she is or understand her situation. Due to the confusion from brain damage from the brain bleed, she is unable to represent herself when applying for disability. We have also been unable to contact her family and no relatives have come to visit her in the hospital. As a result, a hospital installation service representative is acting on the patient 's behalf in applying for disability, determining her medical care, and arranging placement after her hospitalization. Sincerely, Fer العلي M.D.
[2018-04-03] MEDS: Insulin Regular 300 UNITS/3 ML VIAL SC PRN ×2 (12:40→16:21)
[2018-04-03] MEDS: Temazepam 15 MG CAP PO PRN (22:12)
[2018-04-04 04:50] LABS: #Eosinphils 0.1 thou/uL (0.0-0.7); #Lymphocytes 3.6 thou/uL (1.20-3.40); #Monocytes 0.5 thou/uL (0.11-0.59); #Neutrophils 3.5 thou/uL (1.40-6.50); %Basophils 0.4 % (0.0-1.0); %Eosinophils 1.1 % (0.0-10.0); %Monocytes 6.5 % (0.0-10.0); Hemoglobin 13.1 g/dL (12.0-16.0); Mean Corpuscular HGB CONC 34.5 g/dL (32.0-36.0); Mean Corpuscular Hemoglobin 35.9 pg (27.0-31.0); Mean Platelet Volume 10.9 fL (7.4-10.4); Platelet Count 21 thou/uL (130-400); RBC Distribution Width 12.1 % (11.5-14.5); Red Blood Cell (RBC) Count 3.65 mill/uL (4.20-5.40); White Blood Cell (WBC) Count 7.7 thou/uL (4.8-10.8)
[2018-04-04] MEDS: Multivitamin W/ Minerals 1 TAB PO SCH (09:23)
[2018-04-04] MEDS: Potassium Chloride 20 MEQ TAB PO SCH (09:25)
[2018-04-04] MEDS: Senokot S 8.6-50 MG TAB PO SCH ×2 (09:25→20:24)
[2018-04-04] MEDS: levETIRAcetam 500 MG TAB PO SCH ×2 (09:25→20:24)
[2018-04-04] MEDS: Folic Acid 1 MG TAB PO SCH (09:25)
[2018-04-04] MEDS: Famotidine 20 MG TAB PO SCH ×2 (09:25→20:21)
[2018-04-04] MEDS: predniSONE 50 MG TAB PO SCH (09:26)
[2018-04-04] MEDS: Cyanocobalamin (Vitamin B-12) 1,000 MCG TAB PO SCH (09:26)
[2018-04-04] MEDS: Carvedilol 3.125 MG TAB PO SCH ×2 (09:27→17:24)
[2018-04-04] MEDS: Lisinopril 20 MG TAB PO SCH ×2 (09:27→20:24)
[2018-04-04] MEDS: Insulin Glargine 5 UNITS in Pre-Filled Syringe 1 EACH SC SCH ×2 (09:32→20:23)
[2018-04-04] MEDS: Insulin Regular 300 UNITS/3 ML VIAL SC PRN ×3 (12:34→20:27)
--- NOTE | 2018-04-04 16:56 | PDOC.PN ---
- Subjective Encounter Start Date: 04/04/18 Encounter Start Time: 16:45 Subjective: f/u for persistent encephalopathy likely multifactorial given ETOH abuse -: and ICH. Remains confused and oriented to person. CM assisting with NH -: options. - Objective Resuscitation Status: Resuscitation Status DNR:Do Not Resuscitate MAR Reviewed: Yes Vital Signs & Weight: Vital Signs (12 hours) Temp Pulse Resp BP BP Pulse Ox 04/04/18 09:27 160/78 H 04/04/18 08:00 97.8 F 62 16 99 04/04/18 07:56 97.8 F 62 16 160/78 H 99 Weight Admit Weight 138 lb 10.732 oz Weight 113 lb 6.4 oz Most Recent Monitor Data Heart Rate from ECG 72 NIBP 138/59 NIBP BP-Mean 89 Respiration from ECG 21 SpO2 95 I&O: 04/03/18 04/04/18 04/05/18 06:59 06:59 06:59 Intake Total 1780 1720 Balance 1780 1720 Result Diagrams: 04/04/18 04:25 04/03/18 03:42 Additional Labs: Accuchecks 04/04/18 04/04/18 04/03/18 11:39 05:18 19:43 POC Glucose 182 H 121 H 211 H Laboratory Tests 03/09/18 03/09/18 03/26/18 09:58 09:58 06:41 Plt Count Sodium 132 L Hepatitis C Antibody Reflex HepC Qnt H HIV 1&2 Antigen & Ab Non-Reactive 03/26/18 03/28/18 03/28/18 06:41 00:31 00:31 Plt Count 53 L 25 L* Sodium 135 L Hepatitis C Antibody HIV 1&2 Antigen & Ab 03/30/18 03/30/18 04/01/18 04:30 04:30 00:10 Plt Count 24 L* Sodium 134 L 135 L Hepatitis C Antibody HIV 1&2 Antigen & Ab 04/01/18 04/03/18 00:10 03:42 Plt Count 13 L* 18 L* Sodium Hepatitis C Antibody HIV 1&2 Antigen & Ab Phys Exam - Physical Examination Constitutional: NAD alert, confused, oriented to person HEENT: PERRLA, moist MMs, sclera anicteric, oral pharynx no lesions Neck: no nodes, no JVD, supple, full ROM Respiratory: no wheezing, no rales, no rhonchi, clear to auscultation bilateral Cardiovascular: RRR, no significant murmur, no rub, gallop Gastrointestinal: soft, non-tender, no distention, positive bowel sounds Musculoskeletal: no edema, pulses present Neurological: normal sensation, moves all 4 limbs A x O x 1 Skin: no rash, normal turgor, cap refill <2 seconds Dx/Plan (1) Acute metabolic encephalopathy Code(s): G93.41 - METABOLIC ENCEPHALOPATHY Status: Acute Comment: Multifactorial and persistent, continue supportive measures, likely permanent component (2) Alcohol abuse Code(s): F10.10 - ALCOHOL ABUSE, UNCOMPLICATED Status: Chronic Comment: Continue Thiamine, Folate, MVI (3) Chronic hepatitis C Code(s): B18.2 - CHRONIC VIRAL HEPATITIS C Status: Chronic Qualifiers: Hepatic coma status: without hepatic coma Qualified Code(s): B18.2 - Chronic viral hepatitis C Comment: Supportive, no current treatment (4) Cocaine abuse Code(s): F14.10 - COCAINE ABUSE, UNCOMPLICATED Status: Chronic (5) Thrombocytopenia Code(s): D69.6 - THROMBOCYTOPENIA, UNSPECIFIED Status: Chronic Comment: Chronic thrombocytopenia due to ETOH abuse, no active bleeding currently, serial monitoring, avoid NSAIDS, ASA and anticoagulation (6) Intracranial hemorrhage Code(s): I62.9 - NONTRAUMATIC INTRACRANIAL HEMORRHAGE, UNSPECIFIED Status: Resolved Comment: s/p EVD and removal, remains encephalopathic and unable to understand her current situation or provide coherent direction regarding her care, likely will need an appointed guardian - Plan 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
[2018-04-04] MEDS: Melatonin 3 MG TAB PO PRN (20:24)
[2018-04-05] MEDS: Haloperidol Lactate 5 MG/ML VIAL IM PRN ×2 (00:05→20:52)
[2018-04-05] MEDS: Insulin Glargine 5 UNITS in Pre-Filled Syringe 1 EACH SC SCH ×2 (09:47→20:09)
[2018-04-05] MEDS: Carvedilol 3.125 MG TAB PO SCH (09:47)
[2018-04-05] MEDS: Potassium Chloride 20 MEQ TAB PO SCH (09:49)
[2018-04-05] MEDS: predniSONE 20 MG TAB PO SCH (09:49)
[2018-04-05] MEDS: Lisinopril 20 MG TAB PO SCH ×2 (09:50→19:56)
[2018-04-05] MEDS: Folic Acid 1 MG TAB PO SCH (09:50)
[2018-04-05] MEDS: Cyanocobalamin (Vitamin B-12) 1,000 MCG TAB PO SCH (09:50)
[2018-04-05] MEDS: levETIRAcetam 500 MG TAB PO SCH ×2 (09:50→19:59)
[2018-04-05] MEDS: Senokot S 8.6-50 MG TAB PO SCH ×2 (09:51→19:59)
[2018-04-05] MEDS: Multivitamin W/ Minerals 1 TAB PO SCH (09:51)
[2018-04-05] MEDS: Famotidine 20 MG TAB PO SCH ×2 (09:53→19:55)
--- NOTE | 2018-04-05 14:19 | PDOC.PN ---
- Subjective Encounter Start Date: 04/05/18 Encounter Start Time: 14:10 Subjective: f/u for multifactorial encephalopathy persistent with confusion and -: restlessness. Remains on bed alarm and yells out per nursing. - Objective Resuscitation Status: Resuscitation Status DNR:Do Not Resuscitate MAR Reviewed: Yes Vital Signs & Weight: Vital Signs (12 hours) Temp Pulse Resp BP BP Pulse Ox 04/05/18 09:50 154/78 H 04/05/18 08:00 97.9 F 74 16 154/78 H 97 Weight Admit Weight 138 lb 10.732 oz Weight 109 lb 4.8 oz Most Recent Monitor Data Heart Rate from ECG 72 NIBP 138/59 NIBP BP-Mean 89 Respiration from ECG 21 SpO2 95 I&O: 04/04/18 04/05/18 04/06/18 06:59 06:59 06:59 Intake Total 1720 960 Balance 1720 960 Result Diagrams: 04/04/18 04:25 04/03/18 03:42 Additional Labs: Accuchecks 04/05/18 04/05/18 04/04/18 11:48 05:28 19:47 POC Glucose 177 H 94 297 H 04/04/18 16:52 POC Glucose 292 H Laboratory Tests 03/09/18 03/09/18 03/26/18 09:58 09:58 06:41 Plt Count Sodium 132 L Hepatitis C Antibody Reflex HepC Qnt H HIV 1&2 Antigen & Ab Non-Reactive 03/26/18 03/28/18 03/28/18 06:41 00:31 00:31 Plt Count 53 L 25 L* Sodium 135 L Hepatitis C Antibody HIV 1&2 Antigen & Ab 03/30/18 03/30/18 04/01/18 04:30 04:30 00:10 Plt Count 24 L* Sodium 134 L 135 L Hepatitis C Antibody HIV 1&2 Antigen & Ab 04/01/18 04/03/18 00:10 03:42 Plt Count 13 L* 18 L* Sodium Hepatitis C Antibody HIV 1&2 Antigen & Ab Phys Exam - Physical Examination alert, responds to questions HEENT: PERRLA, moist MMs, sclera anicteric, oral pharynx no lesions Neck: no nodes, no JVD, supple Respiratory: no wheezing, no rales, no rhonchi, clear to auscultation bilateral Cardiovascular: RRR, no significant murmur, no rub, gallop Gastrointestinal: soft, non-tender, no distention, positive bowel sounds Musculoskeletal: no edema, pulses present Neurological: moves all 4 limbs A x O x 1 Skin: no rash, normal turgor, cap refill <2 seconds Dx/Plan (1) Acute metabolic encephalopathy Code(s): G93.41 - METABOLIC ENCEPHALOPATHY Status: Acute Comment: Multifactorial and persistent, continue supportive measures, likely permanent component (2) HTN (hypertension) Code(s): I10 - ESSENTIAL (PRIMARY) HYPERTENSION Status: Chronic Qualifiers: Hypertension type: essential hypertension Qualified Code(s): I10 - Essential (primary) hypertension Comment: Increase Coreg 6.25mg BID, continue Lisinopril 20mg BID (3) Alcohol abuse Code(s): F10.10 - ALCOHOL ABUSE, UNCOMPLICATED Status: Chronic Comment: Continue Thiamine, Folate, MVI (4) Chronic hepatitis C Code(s): B18.2 - CHRONIC VIRAL HEPATITIS C Status: Chronic Qualifiers: Hepatic coma status: without hepatic coma Qualified Code(s): B18.2 - Chronic viral hepatitis C Comment: Supportive, no current treatment (5) Cocaine abuse Code(s): F14.10 - COCAINE ABUSE, UNCOMPLICATED Status: Chronic (6) Thrombocytopenia Code(s): D69.6 - THROMBOCYTOPENIA, UNSPECIFIED Status: Chronic Comment: Chronic thrombocytopenia due to ETOH abuse, no active bleeding currently, serial monitoring, avoid NSAIDS, ASA and anticoagulation (7) Intracranial hemorrhage Code(s): I62.9 - NONTRAUMATIC INTRACRANIAL HEMORRHAGE, UNSPECIFIED Status: Resolved Comment: s/p EVD and removal, remains encephalopathic and unable to understand her current situation or provide coherent direction regarding her care, likely will need an appointed guardian - Plan 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
[2018-04-05] MEDS: Acetaminophen 325 MG TAB PO PRN (15:22)
[2018-04-05] MEDS: Carvedilol 6.25 MG TAB PO SCH (16:42)
[2018-04-05] MEDS: Insulin Regular 300 UNITS/3 ML VIAL SC PRN (16:45)
[2018-04-05] MEDS: Melatonin 3 MG TAB PO PRN (20:16)
[2018-04-06] MEDS ORDERED: Haloperidol Lactate 5 MG/ML VIAL IM SCH (01:15)
[2018-04-06] MEDS: cloNIDine 0.1 MG TAB PO PRN (03:20)
[2018-04-06] MEDS: Lisinopril 20 MG TAB PO SCH ×2 (08:10→20:29)
[2018-04-06] MEDS: levETIRAcetam 500 MG TAB PO SCH ×2 (08:10→20:29)
[2018-04-06] MEDS: Multivitamin W/ Minerals 1 TAB PO SCH (08:11)
[2018-04-06] MEDS: predniSONE 20 MG TAB PO SCH (08:11)
[2018-04-06] MEDS: Famotidine 20 MG TAB PO SCH ×2 (08:12→20:28)
[2018-04-06] MEDS: Cyanocobalamin (Vitamin B-12) 1,000 MCG TAB PO SCH (08:12)
[2018-04-06] MEDS: Carvedilol 6.25 MG TAB PO SCH ×2 (08:12→17:35)
[2018-04-06] MEDS: Senokot S 8.6-50 MG TAB PO SCH ×2 (08:13→20:29)
[2018-04-06] MEDS: Folic Acid 1 MG TAB PO SCH (08:13)
[2018-04-06] MEDS: Potassium Chloride 20 MEQ TAB PO SCH (08:14)
[2018-04-06] MEDS: Insulin Glargine 5 UNITS in Pre-Filled Syringe 1 EACH SC SCH ×2 (09:46→20:28)
[2018-04-06] MEDS: Insulin Regular 300 UNITS/3 ML VIAL SC PRN ×2 (12:36→17:31)
--- NOTE | 2018-04-06 12:42 | PDOC.PN ---
- Subjective Encounter Start Date: 04/06/18 Encounter Start Time: 09:20 Pt seen for followup re: acute encephalopathy. Denies chest pain, shortness of breath, fevers or chills. - Objective Resuscitation Status: Resuscitation Status DNR:Do Not Resuscitate MAR Reviewed: Yes Vital Signs & Weight: Vital Signs (12 hours) Temp Pulse Resp BP BP Pulse Ox 04/06/18 08:16 98.1 F 71 18 123/77 98 04/06/18 08:00 98.1 F 71 18 98 04/06/18 03:20 170/85 H 04/06/18 03:08 170/85 H Weight Admit Weight 138 lb 10.732 oz Weight 114 lb 11.2 oz Most Recent Monitor Data Heart Rate from ECG 72 NIBP 138/59 NIBP BP-Mean 89 Respiration from ECG 21 SpO2 95 I&O: 04/05/18 04/06/18 04/07/18 06:59 06:59 06:59 Intake Total 960 1700 Balance 960 1700 Result Diagrams: 04/04/18 04:25 04/03/18 03:42 Additional Labs: Accuchecks 04/06/18 04/06/18 04/05/18 11:37 06:47 20:04 POC Glucose 256 H 100 251 H 04/05/18 16:37 POC Glucose 293 H Labs reviewed by me Phys Exam - Physical Examination Constitutional: NAD HEENT: moist MMs Neck: supple Respiratory: clear to auscultation bilateral Cardiovascular: RRR Gastrointestinal: soft Neurological: moves all 4 limbs Psychiatric: normal affect Dx/Plan (1) Acute metabolic encephalopathy Code(s): G93.41 - METABOLIC ENCEPHALOPATHY Status: Acute Comment: Multifactorial and persistent, continue supportive measures, sitter 1:1 prn, Ativan 1mg po q6h prn (2) HTN (hypertension) Code(s): I10 - ESSENTIAL (PRIMARY) HYPERTENSION Status: Chronic Qualifiers: Hypertension type: essential hypertension Qualified Code(s): I10 - Essential (primary) hypertension Comment: Monitor vital signs and titrate antihypertensives as needed (3) Thrombocytopenia Code(s): D69.6 - THROMBOCYTOPENIA, UNSPECIFIED Status: Chronic Comment: no active bleeding - Plan * . Review of Systems - Review of Systems Constitutional: negative: fever, chills, sweats, weakness, malaise Cardiovascular: negative: chest pain, palpitations, orthopnea, paroxysmal nocturnal dyspnea, edema, light headedness - Medications/Allergies Allergies/Adverse Reactions: Allergies Allergy/AdvReac Type Severity Reaction Status Date / Time No Known Drug Allergies Allergy Verified 03/09/18 17:54 Medications: Current Medications Acetaminophen (Tylenol) 650 mg PO Q6H PRN PRN Reason: Pain Last Admin: 04/05/18 15:22 Dose: 650 mg Albuterol/Ipratropium (Duoneb) 3 ml NEB Q4H PRN PRN Reason: SOB Carvedilol (Coreg) 6.25 mg PO BID-[facility] Last Admin: 04/06/18 08:12 Dose: 6.25 mg Clonidine (Catapres) 0.1 mg PO Q4H PRN PRN Reason: Systolic BP > 160 Last Admin: 04/06/18 03:20 Dose: 0.1 mg Cyanocobalamin (Vitamin B-12) 1,000 mcg PO DAILY [facility], [facility] Last Admin: 04/06/18 08:12 Dose: 1,000 mcg Dextrose/Water (Dextrose 50%) 25 gm SLOW IVP PRN PRN PRN Reason: Hypoglycemia Docusate Sodium (Colace) 100 mg PO BIDPRN PRN PRN Reason: Constipation Last Admin: 03/10/18 08:40 Dose: 100 mg Famotidine (Pepcid) 20 mg PO BID [facility]1983 Last Admin: 04/06/18 08:12 Dose: Not Given Folic Acid (Folvite) 1 mg PO DAILY [facility] Last Admin: 04/06/18 08:13 Dose: 1 mg Glucagon (Glucagon) 1 mg IM PRN PRN PRN Reason: Hypoglycemia Haloperidol Lactate (Haldol) 5 mg IM Q6H PRN PRN Reason: Agitation Last Admin: 04/05/18 20:52 Dose: 5 mg Hydralazine HCl (Apresoline) 10 mg SLOW IVP Q4H PRN PRN Reason: SBP>160 Last Admin: 03/20/18 23:49 Dose: 10 mg Dextrose/Water (D5w) 1,000 mls @ 0 mls/hr IV .Q0M PRN; As Directed PRN Reason: Hypoglycemia Insulin Glargine 5 units/ (Miscellaneous Medication) 0.05 mls @ 0 mls/hr SC BID [facility] Last Admin: 04/06/18 09:46 Dose: 0.05 mls Insulin Human Regular (Humulin R) 0 units SC .MODERATE SLIDING SC PRN PRN Reason: Moderate Correctional Scale Last Admin: 04/06/18 12:36 Dose: 6 unit Iron/Minerals/Multivitamins (Theragran M) 1 tab PO DAILY [facility] Last Admin: 04/06/18 08:11 Dose: 1 tab Labetalol HCl (Normodyne) 20 mg SLOW IVP Q15MIN PRN PRN Reason: Sbp Greater Than 140 Last Admin: 03/21/18 11:02 Dose: 20 mg Lactulose (Lactulose) 20 gm PO DAILY [facility] Last Admin: 04/06/18 08:14 Dose: 20 gm Levetiracetam (Keppra) 500 mg PO BID [facility] Last Admin: 04/06/18 08:10 Dose: 500 mg Lisinopril (Zestril) 20 mg PO BID [facility] Last Admin: 04/06/18 08:10 Dose: 20 mg Magnesium Hydroxide (Milk Of Magnesium) 30 ml PO DAILYPRN PRN PRN Reason: Constipation Melatonin (Melatonin) 3 mg PO HS PRN PRN Reason: Insomnia Last Admin: 04/05/18 20:16 Dose: 3 mg Mineral Oil/White Petrolatum (Lacri-Lube Ointment) 0 gm EA EYE PRN PRN PRN Reason: Dry Eyes Potassium Chloride (K-Dur) 20 meq PO QAM-WM [facility] Last Admin: 04/06/18 08:14 Dose: 20 meq Prednisone (Prednisone) 40 mg PO QAM-WM [facility] Last Admin: 04/06/18 08:11 Dose: 40 mg Senna/Docusate Sodium (Senokot S) 1 tab PO BID [facility] Last Admin: 04/06/18 08:13 Dose: 1 tab Sodium Chloride (Flush - Normal Saline) 10 ml IVF PRN PRN PRN Reason: Saline Flush Last Admin: 04/03/18 07:40 Dose: 10 ml Thiamine HCl (Thiamine) 100 mg PO DAILY [facility] Last Admin: 04/06/18 08:10 Dose: 100 mg
[2018-04-06] MEDS: Haloperidol Lactate 5 MG/ML VIAL IM PRN (23:18)
[2018-04-07] MEDS: Haloperidol Lactate 5 MG/ML VIAL IM PRN ×2 (09:15→09:44)
[2018-04-07] MEDS: Lisinopril 20 MG TAB PO SCH ×2 (09:17→21:03)
[2018-04-07] MEDS: Cyanocobalamin (Vitamin B-12) 1,000 MCG TAB PO SCH (09:17)
[2018-04-07] MEDS: Potassium Chloride 20 MEQ TAB PO SCH (09:17)
[2018-04-07] MEDS: Multivitamin W/ Minerals 1 TAB PO SCH (09:17)
[2018-04-07] MEDS: Carvedilol 6.25 MG TAB PO SCH ×2 (09:18→17:34)
[2018-04-07] MEDS: predniSONE 20 MG TAB PO SCH (09:18)
[2018-04-07] MEDS: levETIRAcetam 500 MG TAB PO SCH ×2 (09:18→21:04)
[2018-04-07] MEDS: Senokot S 8.6-50 MG TAB PO SCH ×2 (09:19→21:04)
[2018-04-07] MEDS: Folic Acid 1 MG TAB PO SCH (09:19)
[2018-04-07] MEDS: Insulin Glargine 5 UNITS in Pre-Filled Syringe 1 EACH SC SCH ×2 (09:19→21:04)
[2018-04-07] MEDS: Famotidine 20 MG TAB PO SCH ×2 (09:19→21:04)
[2018-04-07] MEDS: Insulin Regular 300 UNITS/3 ML VIAL SC PRN ×2 (12:59→17:36)
[2018-04-07] MEDS: Ziprasidone 20 MG CAP PO SCH (21:05)
[2018-04-07] MEDS ORDERED: Lorazepam 1 MG TAB PO SCH (23:30)
--- NOTE | 2018-04-08 01:41 | PDOC.PN ---
- Subjective Encounter Start Date: 04/07/18 Encounter Start Time: 15:00 Subjective: f/u for AMS, encephalopathy and confusion. No new events per nursing. - Objective Resuscitation Status: Resuscitation Status DNR:Do Not Resuscitate MAR Reviewed: Yes Vital Signs & Weight: Vital Signs (12 hours) Temp Pulse Resp BP BP Pulse Ox 04/07/18 21:03 145/67 H 04/07/18 20:00 98.5 F 70 20 97 04/07/18 19:09 98.5 F 70 20 145/67 H 97 04/07/18 17:34 150/74 H Weight Admit Weight 138 lb 10.732 oz Weight 110 lb 12.8 oz Most Recent Monitor Data Heart Rate from ECG 72 NIBP 138/59 NIBP BP-Mean 89 Respiration from ECG 21 SpO2 95 I&O: 04/06/18 04/07/18 04/08/18 06:59 06:59 06:59 Intake Total 1700 1800 1000 Balance 1700 1800 1000 Result Diagrams: 04/04/18 04:25 04/03/18 03:42 Additional Labs: Accuchecks 04/07/18 04/07/18 04/07/18 19:14 15:54 11:53 POC Glucose 336 H 263 H 237 H 04/07/18 05:08 POC Glucose 103 Phys Exam - Physical Examination Constitutional: NAD HEENT: PERRLA, moist MMs, sclera anicteric, oral pharynx no lesions Neck: no nodes, no JVD, supple Respiratory: no wheezing, no rales, no rhonchi, clear to auscultation bilateral Cardiovascular: RRR, no significant murmur, no rub, gallop Gastrointestinal: soft, non-tender, no distention, positive bowel sounds Musculoskeletal: no edema, pulses present Neurological: normal sensation, moves all 4 limbs A x O x 2 Skin: no rash, normal turgor, cap refill <2 seconds Dx/Plan (1) Acute metabolic encephalopathy Code(s): G93.41 - METABOLIC ENCEPHALOPATHY Status: Acute Comment: Multifactorial and persistent, continue supportive measures, sitter 1:1 prn (2) HTN (hypertension) Code(s): I10 - ESSENTIAL (PRIMARY) HYPERTENSION Status: Chronic Qualifiers: Hypertension type: essential hypertension Qualified Code(s): I10 - Essential (primary) hypertension Comment: Monitor vital signs and titrate antihypertensives as needed (3) Alcohol abuse Code(s): F10.10 - ALCOHOL ABUSE, UNCOMPLICATED Status: Chronic Comment: Continue Thiamine, Folate, MVI (4) Chronic hepatitis C Code(s): B18.2 - CHRONIC VIRAL HEPATITIS C Status: Chronic Qualifiers: Hepatic coma status: without hepatic coma Qualified Code(s): B18.2 - Chronic viral hepatitis C Comment: Supportive, no current treatment (5) Cocaine abuse Code(s): F14.10 - COCAINE ABUSE, UNCOMPLICATED Status: Chronic (6) Thrombocytopenia Code(s): D69.6 - THROMBOCYTOPENIA, UNSPECIFIED Status: Chronic Comment: no active bleeding (7) Intracranial hemorrhage Code(s): I62.9 - NONTRAUMATIC INTRACRANIAL HEMORRHAGE, UNSPECIFIED Status: Resolved Comment: s/p EVD and removal, remains encephalopathic and unable to understand her current situation or provide coherent direction regarding her care, likely will need an appointed guardian - Plan 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
[2018-04-08] MEDS: Insulin Glargine 5 UNITS in Pre-Filled Syringe 1 EACH SC SCH ×2 (10:48→19:49)
[2018-04-08] MEDS: Lisinopril 20 MG TAB PO SCH ×2 (11:00→19:49)
[2018-04-08] MEDS: Cyanocobalamin (Vitamin B-12) 1,000 MCG TAB PO SCH (11:00)
[2018-04-08] MEDS: Potassium Chloride 20 MEQ TAB PO SCH (11:00)
[2018-04-08] MEDS: Famotidine 20 MG TAB PO SCH ×2 (11:01→19:49)
[2018-04-08] MEDS: Senokot S 8.6-50 MG TAB PO SCH ×2 (11:01→19:49)
[2018-04-08] MEDS: Carvedilol 6.25 MG TAB PO SCH ×2 (11:01→16:52)
[2018-04-08] MEDS: levETIRAcetam 500 MG TAB PO SCH ×2 (11:02→19:49)
[2018-04-08] MEDS: Folic Acid 1 MG TAB PO SCH (11:02)
[2018-04-08] MEDS: predniSONE 20 MG TAB PO SCH (11:02)
[2018-04-08] MEDS: Multivitamin W/ Minerals 1 TAB PO SCH (11:02)
[2018-04-08] MEDS: Insulin Regular 300 UNITS/3 ML VIAL SC PRN (16:54)
[2018-04-08] MEDS: Ziprasidone 20 MG CAP PO SCH (19:49)
--- NOTE | 2018-04-08 20:10 | PDOC.PN ---
- Subjective Encounter Start Date: 04/08/18 Encounter Start Time: 19:00 Subjective: f/u for encephalopathy of metabolic origin. Remains agitated requiring -: Ativan for control. Confusion persists. Eating ok. - Objective Resuscitation Status: Resuscitation Status DNR:Do Not Resuscitate MAR Reviewed: Yes Vital Signs & Weight: Vital Signs (12 hours) Temp Pulse Resp BP BP Pulse Ox 04/08/18 16:52 116/69 04/08/18 16:26 98.5 F 61 16 116/69 98 04/08/18 11:36 97.6 F 65 16 115/66 95 04/08/18 11:01 115/66 04/08/18 11:00 115/66 Weight Admit Weight 138 lb 10.732 oz Weight 110 lb 12.8 oz Most Recent Monitor Data Heart Rate from ECG 72 NIBP 138/59 NIBP BP-Mean 89 Respiration from ECG 21 SpO2 95 I&O: 04/07/18 04/08/18 04/09/18 06:59 06:59 06:59 Intake Total 1800 1400 700 Balance 1800 1400 700 Result Diagrams: 04/04/18 04:25 04/03/18 03:42 Additional Labs: Accuchecks 04/08/18 04/08/18 04/08/18 16:27 11:37 09:16 POC Glucose 420 H 105 92 04/08/18 04/08/18 04/07/18 07:33 06:04 19:14 POC Glucose 81 72 336 H Phys Exam - Physical Examination Constitutional: NAD responds to questions HEENT: PERRLA, moist MMs, sclera anicteric, oral pharynx no lesions Neck: no nodes, no JVD, supple, full ROM Respiratory: no wheezing, no rales, no rhonchi, clear to auscultation bilateral S1, S2 Cardiovascular: RRR, no significant murmur, no rub, gallop Gastrointestinal: soft, non-tender, no distention, positive bowel sounds Musculoskeletal: no edema, pulses present Neurological: normal sensation, moves all 4 limbs A x O x 1 Skin: no rash, normal turgor, cap refill <2 seconds Dx/Plan (1) Acute metabolic encephalopathy Code(s): G93.41 - METABOLIC ENCEPHALOPATHY Status: Acute Comment: Multifactorial and persistent, continue supportive measures, sitter 1:1 prn, Ativan 1mg po q6h prn (2) HTN (hypertension) Code(s): I10 - ESSENTIAL (PRIMARY) HYPERTENSION Status: Chronic Qualifiers: Hypertension type: essential hypertension Qualified Code(s): I10 - Essential (primary) hypertension Comment: Monitor vital signs and titrate antihypertensives as needed (3) Alcohol abuse Code(s): F10.10 - ALCOHOL ABUSE, UNCOMPLICATED Status: Chronic Comment: Continue Thiamine, Folate, MVI, Ativan 1mg po q6h prn (4) Chronic hepatitis C Code(s): B18.2 - CHRONIC VIRAL HEPATITIS C Status: Chronic Qualifiers: Hepatic coma status: without hepatic coma Qualified Code(s): B18.2 - Chronic viral hepatitis C Comment: Supportive, no current treatment (5) Cocaine abuse Code(s): F14.10 - COCAINE ABUSE, UNCOMPLICATED Status: Chronic (6) Thrombocytopenia Code(s): D69.6 - THROMBOCYTOPENIA, UNSPECIFIED Status: Chronic Comment: no active bleeding (7) Intracranial hemorrhage Code(s): I62.9 - NONTRAUMATIC INTRACRANIAL HEMORRHAGE, UNSPECIFIED Status: Resolved Comment: s/p EVD and removal, remains encephalopathic and unable to understand her current situation or provide coherent direction regarding her care, likely will need an appointed guardian - Plan 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
[2018-04-08] MEDS: Lorazepam 1 MG TAB PO PRN (21:17)
[2018-04-09] MEDS: Lorazepam 1 MG TAB PO PRN ×2 (02:57→21:09)
[2018-04-09] MEDS: Lisinopril 20 MG TAB PO SCH ×2 (13:38→21:08)
[2018-04-09] MEDS: Famotidine 20 MG TAB PO SCH ×2 (13:38→21:07)
[2018-04-09] MEDS: Potassium Chloride 20 MEQ TAB PO SCH (13:39)
[2018-04-09] MEDS: Folic Acid 1 MG TAB PO SCH (13:39)
[2018-04-09] MEDS: Cyanocobalamin (Vitamin B-12) 1,000 MCG TAB PO SCH (13:39)
[2018-04-09] MEDS: levETIRAcetam 500 MG TAB PO SCH ×2 (13:39→21:08)
[2018-04-09] MEDS: predniSONE 20 MG TAB PO SCH (13:40)
[2018-04-09] MEDS: Senokot S 8.6-50 MG TAB PO SCH ×2 (13:40→21:08)
[2018-04-09] MEDS: Multivitamin W/ Minerals 1 TAB PO SCH (13:40)
[2018-04-09] MEDS: Carvedilol 6.25 MG TAB PO SCH ×3 (13:40→17:08)
[2018-04-09] MEDS: Insulin Glargine 5 UNITS in Pre-Filled Syringe 1 EACH SC SCH ×2 (13:55→21:15)
--- NOTE | 2018-04-09 15:27 | PDOC.PN ---
- Subjective Encounter Start Date: 04/09/18 Encounter Start Time: 15:25 Subjective: f/u for persistent encephalopathy and confusion. No new issues reported -: Continues on Ativan prn. - Objective Resuscitation Status: Resuscitation Status DNR:Do Not Resuscitate MAR Reviewed: Yes Vital Signs & Weight: Vital Signs (12 hours) Temp Pulse Resp BP BP Pulse Ox 04/09/18 13:40 154/79 H 04/09/18 13:38 154/79 H 04/09/18 08:00 98.2 F 71 16 98 04/09/18 07:27 98.2 F 71 16 154/79 H 98 Weight Admit Weight 138 lb 10.732 oz Weight 111 lb 8.862 oz Most Recent Monitor Data Heart Rate from ECG 72 NIBP 138/59 NIBP BP-Mean 89 Respiration from ECG 21 SpO2 95 I&O: 04/08/18 04/09/18 04/10/18 06:59 06:59 06:59 Intake Total 1400 1180 Balance 1400 1180 Result Diagrams: 04/04/18 04:25 04/03/18 03:42 Additional Labs: Accuchecks 04/09/18 04/09/18 04/08/18 10:50 05:59 19:47 POC Glucose 139 H 87 214 H 04/08/18 16:27 POC Glucose 420 H Phys Exam - Physical Examination alert, responds to questions HEENT: PERRLA, moist MMs, sclera anicteric, oral pharynx no lesions Neck: no nodes, no JVD, supple, full ROM Respiratory: no wheezing, no rales, no rhonchi, clear to auscultation bilateral S1, S2 Cardiovascular: RRR, no significant murmur, no rub, gallop Gastrointestinal: soft, non-tender, no distention, positive bowel sounds generalized atrophy Musculoskeletal: no edema, pulses present Neurological: moves all 4 limbs A x O x 1 Skin: no rash, normal turgor, cap refill <2 seconds Dx/Plan (1) Acute metabolic encephalopathy Code(s): G93.41 - METABOLIC ENCEPHALOPATHY Status: Acute Comment: Multifactorial and persistent, continue supportive measures, sitter 1:1 prn, Ativan 1mg po q6h prn (2) HTN (hypertension) Code(s): I10 - ESSENTIAL (PRIMARY) HYPERTENSION Status: Chronic Qualifiers: Hypertension type: essential hypertension Qualified Code(s): I10 - Essential (primary) hypertension Comment: Monitor vital signs and titrate antihypertensives as needed (3) Alcohol abuse Code(s): F10.10 - ALCOHOL ABUSE, UNCOMPLICATED Status: Chronic Comment: Continue Thiamine, Folate, MVI, Ativan 1mg po q6h prn (4) Chronic hepatitis C Code(s): B18.2 - CHRONIC VIRAL HEPATITIS C Status: Chronic Qualifiers: Hepatic coma status: without hepatic coma Qualified Code(s): B18.2 - Chronic viral hepatitis C Comment: Supportive, no current treatment (5) Cocaine abuse Code(s): F14.10 - COCAINE ABUSE, UNCOMPLICATED Status: Chronic (6) Thrombocytopenia Code(s): D69.6 - THROMBOCYTOPENIA, UNSPECIFIED Status: Chronic Comment: no active bleeding (7) Intracranial hemorrhage Code(s): I62.9 - NONTRAUMATIC INTRACRANIAL HEMORRHAGE, UNSPECIFIED Status: Resolved Comment: s/p EVD and removal, remains encephalopathic and unable to understand her current situation or provide coherent direction regarding her care, likely will need an appointed guardian - Plan 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
[2018-04-09] MEDS: Insulin Regular 300 UNITS/3 ML VIAL SC PRN (17:09)
[2018-04-09] MEDS: Ziprasidone 20 MG CAP PO SCH (21:08)
[2018-04-10] MEDS: Melatonin 3 MG TAB PO PRN (01:06)
[2018-04-10] MEDS: Lorazepam 1 MG TAB PO PRN ×2 (02:44→21:36)
[2018-04-10] MEDS: predniSONE 20 MG TAB PO SCH (09:45)
[2018-04-10] MEDS: levETIRAcetam 500 MG TAB PO SCH ×2 (09:46→21:38)
[2018-04-10] MEDS: Carvedilol 6.25 MG TAB PO SCH ×2 (09:46→16:45)
[2018-04-10] MEDS: Senokot S 8.6-50 MG TAB PO SCH ×2 (09:46→21:38)
[2018-04-10] MEDS: Famotidine 20 MG TAB PO SCH ×2 (09:46→21:37)
[2018-04-10] MEDS: Cyanocobalamin (Vitamin B-12) 1,000 MCG TAB PO SCH (09:46)
[2018-04-10] MEDS: Lisinopril 20 MG TAB PO SCH ×2 (09:46→21:38)
[2018-04-10] MEDS: Folic Acid 1 MG TAB PO SCH (09:47)
[2018-04-10] MEDS: Potassium Chloride 20 MEQ TAB PO SCH (09:47)
[2018-04-10] MEDS: Multivitamin W/ Minerals 1 TAB PO SCH (09:47)
[2018-04-10] MEDS: Insulin Glargine 5 UNITS in Pre-Filled Syringe 1 EACH SC SCH ×2 (09:52→21:37)
[2018-04-10 12:28] VITALS: BMI 17.6
[2018-04-10] MEDS: Insulin Regular 300 UNITS/3 ML VIAL SC PRN ×2 (16:46→21:42)
[2018-04-10] MEDS: Acetaminophen 325 MG TAB PO PRN (17:21)
--- NOTE | 2018-04-10 18:36 | PDOC.PN ---
- Subjective Encounter Start Date: 04/10/18 Encounter Start Time: 18:00 Subjective: f/u for persistent encephalopathy due to longstanding ETOH abuse. -: Confusion and restlessness persists. No current complaints. - Objective Resuscitation Status: Resuscitation Status DNR:Do Not Resuscitate MAR Reviewed: Yes Vital Signs & Weight: Vital Signs (12 hours) Temp Pulse Resp BP BP Pulse Ox 04/10/18 16:45 133/55 L 04/10/18 09:46 153/77 H 04/10/18 08:00 98.6 F 65 18 153/77 H 99 Weight Admit Weight 138 lb 10.732 oz Weight 111 lb 15.917 oz Most Recent Monitor Data Heart Rate from ECG 72 NIBP 138/59 NIBP BP-Mean 89 Respiration from ECG 21 SpO2 95 I&O: 04/09/18 04/10/18 04/11/18 06:59 06:59 06:59 Intake Total 1180 1240 320 Output Total 100 Balance 1180 1140 320 Result Diagrams: 04/04/18 04:25 04/03/18 03:42 Additional Labs: Accuchecks 04/10/18 04/10/18 04/10/18 15:48 11:45 05:58 POC Glucose 287 H 141 H 109 04/09/18 04/09/18 21:16 16:33 POC Glucose 264 H 304 H Phys Exam - Physical Examination Constitutional: NAD HEENT: PERRLA, moist MMs, sclera anicteric, oral pharynx no lesions Neck: no nodes, no JVD, supple, full ROM Respiratory: no wheezing, no rales, no rhonchi, clear to auscultation bilateral S1, S2 Cardiovascular: RRR, no significant murmur, no rub, gallop Gastrointestinal: soft, non-tender, no distention, positive bowel sounds Generalized muscle atrophy Musculoskeletal: no edema, pulses present Neurological: moves all 4 limbs A x O x 1 Skin: no rash, normal turgor, cap refill <2 seconds Dx/Plan (1) Acute metabolic encephalopathy Code(s): G93.41 - METABOLIC ENCEPHALOPATHY Status: Acute Comment: Multifactorial and persistent, continue supportive measures, sitter 1:1 prn, Ativan 1mg po q6h prn (2) HTN (hypertension) Code(s): I10 - ESSENTIAL (PRIMARY) HYPERTENSION Status: Chronic Qualifiers: Hypertension type: essential hypertension Qualified Code(s): I10 - Essential (primary) hypertension Comment: Monitor vital signs and titrate antihypertensives as needed (3) Alcohol abuse Code(s): F10.10 - ALCOHOL ABUSE, UNCOMPLICATED Status: Chronic Comment: Continue Thiamine, Folate, MVI, Ativan 1mg po q6h prn (4) Chronic hepatitis C Code(s): B18.2 - CHRONIC VIRAL HEPATITIS C Status: Chronic Qualifiers: Hepatic coma status: without hepatic coma Qualified Code(s): B18.2 - Chronic viral hepatitis C Comment: Supportive, no current treatment (5) Cocaine abuse Code(s): F14.10 - COCAINE ABUSE, UNCOMPLICATED Status: Chronic (6) Thrombocytopenia Code(s): D69.6 - THROMBOCYTOPENIA, UNSPECIFIED Status: Chronic Comment: no active bleeding (7) Intracranial hemorrhage Code(s): I62.9 - NONTRAUMATIC INTRACRANIAL HEMORRHAGE, UNSPECIFIED Status: Resolved Comment: s/p EVD and removal, remains encephalopathic and unable to understand her current situation or provide coherent direction regarding her care, likely will need an appointed guardian - Plan social service liaison, DVT proph w/SCDs Stable overall -: Continue Ativan prn -: Continue Carvedilol 6.25mg BID -: Continue MVI, Thiamine and Folate -: Plan for d/c to [facility] in [place], [place] 04/11/18 * .
[2018-04-10] MEDS: Ziprasidone 20 MG CAP PO SCH (21:38)
[2018-04-11 07:52] VITALS: BP 115/54; TEMP 98.5
[2018-04-11] MEDS: levETIRAcetam 500 MG TAB PO SCH (09:04)
[2018-04-11] MEDS: Famotidine 20 MG TAB PO SCH (09:04)
[2018-04-11] MEDS: Folic Acid 1 MG TAB PO SCH (09:04)
[2018-04-11] MEDS: Cyanocobalamin (Vitamin B-12) 1,000 MCG TAB PO SCH (09:04)
[2018-04-11] MEDS: Carvedilol 6.25 MG TAB PO SCH (09:04)
[2018-04-11] MEDS: Potassium Chloride 20 MEQ TAB PO SCH (09:04)
[2018-04-11] MEDS: Multivitamin W/ Minerals 1 TAB PO SCH (09:04)
[2018-04-11] MEDS: predniSONE 20 MG TAB PO SCH (09:04)
[2018-04-11] MEDS: Lisinopril 20 MG TAB PO SCH (09:05)
[2018-04-11] MEDS: Senokot S 8.6-50 MG TAB PO SCH (09:05)
[2018-04-11] MEDS: Insulin Glargine 5 UNITS in Pre-Filled Syringe 1 EACH SC SCH (09:14)
--- NOTE | 2018-04-12 09:21 | PDOC.EVN ---
Event Note - Event Note Event Note: discharge summary dictated [id number]
--- NOTE | 2018-04-12 11:53 | DIS ---
DATE OF ADMISSION: 03/08/2018 DATE OF DISCHARGE: 04/11/2018 PRIMARY CARE PHYSICIAN: [facility]. ADMITTING/DISCHARGE DIAGNOSES: 1. Intracranial hemorrhage status post EVD. 2. Status post craniotomy. 3. Alcohol abuse/withdrawal. 4. Chronic hepatitis C. 5. Cocaine abuse. 6. Chronic thrombocytopenia, macrocytic anemia, most likely related to cocaine and alcohol. 7. Aspiration pneumonia status post a course of antibiotics. HOSPITAL COURSE: The patient is a 57-year-old female who initially presented on 03/08/2018 to [facility] Emergency Department with a severe headache and nausea. The patient does have a history of coca ine and alcohol abuse and tobacco abuse daily. She was noted to have a right-sided intraparenchymal occipital parietal hemorrhage. The patient was also thrombocytopenic, likely secondary to her alcoho l use. The patient did have a prolonged course with Neurosurgery. She was monitored in the Intensiv e Care Unit. She did undergo a craniotomy as well as an EVD and removal of the EVD and kam on . The patient's course was also complicated by alcohol withdrawal, needing Precedex sedation as well as control of her blood pressures, which were controlled with p.o. medication. The patient was eventually discharged to a snf facility in [place], [place] on 04/11/2018. The patient w ill follow up with Neurosurgery for a repeat head CT. DISCHARGE PHYSICAL EXAMINATION: VITAL SIGNS: Temperature 98.5, pulse 67, blood pressure is 115/54, respirations 16, satting 98% on r oom air. GENERAL: Confused, awake and alert x1. HEENT: Mucous membranes slightly dry. Poor dentition. NECK: Supple, no lymphadenopathy. HEART: Regular rhythm, no murmurs, rubs or gallops. LUNGS: Clear to auscultation bilaterally. ABDOMEN: Nontender, nondistended. EXTREMITIES: Left side is slightly more weaker than the right. DISCHARGE MEDICATIONS: 1. Tylenol 650 p.o. q.6 hours p.r.n. 2. Artificial Tears. 3. Carvedilol 6.25 mg p.o. b.i.d. 4. Clonidine 0.1 mg p.o. q.4h. 5. Vitamin B12 1000 mcg p.o. daily. 6. Colace 100 mg p.o. b.i.d. 7. Pepcid 20 mg p.o. b.i.d. 8. Folic acid 1 mg p.o. daily. 9. Lantus 5 units b.i.d. 10. Lactulose 20 grams p.o. daily. 11. Keppra 500 mg p.o. b.i.d. 12. Lisinopril 20 mg p.o. b.i.d. 13. Ativan 1 mg p.o. q.6 hours. 14. Prednisone 20 mg p.o. daily. 15. Thiamine 100 mg p.o. daily. 16. Geodon 20 mg p.o. at bedtime. DISCHARGE FOLLOWUP: The patient will resume care at snf facility in [place], [place].
== END 2018-04-11 11:19 | DRG 23 ==
LOC: ERS 21:26 → CCU 22:40 → 2SE 03-17 17:03 → T4-A 03-28 12:10
PROVIDERS: ADMIT Neurological Surgery; ATTEND Neurological Surgery
PROC: 00C70ZZ Extirpation of Matter from Cerebral Hemisphere, Open Approach (ICD-10-PCS; principal; 2018-03-11)
DX: I62.9 Nontraumatic intracranial hemorrhage, unspecified (principal); G93.41 Metabolic encephalopathy; G93.6 Cerebral edema; J69.0 Pneumonitis due to inhalation of food and vomit; J96.01 Acute respiratory failure with hypoxia; F10.231 Alcohol dependence with withdrawal delirium; G81.94 Hemiplegia, unspecified affecting left nondominant side; D69.6 Thrombocytopenia, unspecified; F14.10 Cocaine abuse, uncomplicated; B18.2 Chronic viral hepatitis C; F10.10 Alcohol abuse, uncomplicated; I10 Essential (primary) hypertension; Z79.899 Other long term (current) drug therapy; F17.210 Nicotine dependence, cigarettes, uncomplicated; E87.6 Hypokalemia; Y95 Nosocomial condition; D75.89 Other specified diseases of blood and blood-forming organs; R13.10 Dysphagia, unspecified; G93.9 Disorder of brain, unspecified; R94.5 Abnormal results of liver function studies
CPT/HCPCS: 36415; 36416; 36430; 70450; 71045; 74018; 76700; 80048; 80053; 80074; 80076; 81001; 82140; 82805; 83735; 83930; 84100; 85007; 85025; 85027; 85049; 85060; 85610; 85730; 86850; 86900; 86901; 87040; 87086; 87389; 87522; 93005; 93970; 94002; 94640; 96360; 99406; A4216; A4217; A4218; C1713; C1769; G8978-GP-CK; G8979-GP-CK; G8981-GP-CM; G8981-GP-CN; G8982-GP-CJ; G8982-GP-CL; G8996-GN-CJ; G8996-GN-CK; G8997-GN-CI; J0131; J0360; J0690; J1100; J1630; J1815; J1940; J1953; J2001; J2060; J2150; J2270; J2543; J2704; J2765; J3010; J3370; J3411; J3420; J3480; J3490; J7042; J7050; J7070; J7506; J7620; P9035; P9059; Q0162